=== PATIENT | male | born 1970 | race Two or more races ===

== ENCOUNTER 2016-09-07 10:53 | Emergency (ER) | payer MEDICARE, OTHER ==
--- NOTE | ~2016-09-07 | CT71 ---
[facility] A Service of [facility] RADIOLOGY TEXT RESULTS PATIENT: BRYNN CAREY LOCATION: [facility] : [birth year] UNIT #: [id number] AGE: [address]: Jaimie Mosqueda MD SEX: M ORDER DR: [id number] [facility] [address] [facility]. [place], [place] [address] [id number] MR#: [id number] #: [id number] NAME: BRYNN CAREY : 1970 SEX: M STUDY DATE/TIME: 09/07/2016 10:31 UNIT: CARLOS ROOM: STUDY DESCRIPTION: CT Head Wo Contrast Attending Physician: Jaimie Mosqueda M.D. Ordering Physician: Ed Doctor [id number] [facility] Primary Care Physician: Mahin Martin M.D. MEDICAL IMAGING REPORT This report is preliminary unless electronic signature is present EXAM Head CT, 09/07 INDICATION Dizziness at cardiac rehab this morning with vomiting x2. TECHNIQUE Axial images were obtained from the base to the vertex without contrast. This CT exam was performed with one or more of the following radiation dose reduction techniques: automatic exposure control, adjustment of mA and/or kV according to patient size, and iterative reconstruction. COMPARISON 06/26/2016 FINDINGS Ventricular size and configuration are within normal limits. Again seen are chronic dilated perivascular spaces or old lacunar infarcts both basal ganglia regions. There is no acute infarct or hemorrhage. No masses are seen. Chronic small vessel ischemic changes are present in the white matter. Postoperative changes are noted in the right globe. No skull fracture. There is some atherosclerotic calcification in the carotid siphons. Subcutaneous soft tissue thickening in the occipital scalp is unchanged and is probably some chronic scarring or inflammation. IMPRESSION No acute intracranial abnormality. Stable exam from 06/26/2016. Dictated by... John Rivera Jr., M.D. THIS IS AN ELECTRONICALLY VERIFIED REPORT [facility] A Service of [facility] RADIOLOGY TEXT RESULTS PATIENT: BRYNN CAREY LOCATION: [facility] : [birth year] UNIT #: [id number] AGE: [address]: Jaimie Mosqueda MD SEX: M ORDER DR: John Rivera Jr., M.D. at 09/07/2016 2:58 PM BRAN/vera TD: 09/07/2016 12:43 JOB #: [id number] MEDICAL IMAGING REPORT COPY
--- NOTE | ~2016-09-07 | EKG ---
PATIENT: BRYNN CAREY UNIT #: [id number] Ventricular Rate: 73 BPM Atrial Rate: 73 BPM P-R Interval: 162 ms QRS Duration: 90 ms Q-T Interval: 400 ms QTC Calculation(Bezet): 440 ms P [place]: 43 degrees Calculated R [place]: 67 degrees Calculated T [place]: 57 degrees Diagnosis Line: Normal sinus rhythm Diagnosis Line: Normal ECG Diagnosis Line: When compared with ECG of 28-JUN-2016 07:13, Diagnosis Line: No significant change was found Diagnosis Line: Confirmed by MATT MONAHAN MD ([id number]) on 09/08/2016 Diagnosis Line: 6:18:10 PM INTERPRETING MD: HERO PARTIDA
[2016-09-07 10:35] LABS: BASOPHIL# 0.1 X10e3 (0-0.3); BASOPHIL% 1.1 % (0-2.5); EOSINOPHIL# 0.2 X10e3 (0-0.7); EOSINOPHIL% 2.2 % (0.0-7.0); HEMATOCRIT 27.9 % (38.0-50.0); HEMOGLOBIN 9.5 gm/dL (13.0-16.0); LYMPHOCYTE# 1.6 X10e3 (1.0-3.5); LYMPHOCYTE% 19.1 % (17.0-45.0); MEAN CELL VOLUME 83.8 FL (83-96); MEAN CORPUSCULAR HEMOGLOBIN 28.6 PG (28-34); MEAN CORPUSCULAR HGB CONC 34.1 g/dL (30-36); MONOCYTE# 0.6 X10e3 (0-1.0); MONOCYTE% 7.1 % (3.0-12.0); NEUTROPHIL# 5.7 X10e3 (1.5-7.1); NEUTROPHIL% 70.5 % (40-75); PLATELET COUNT 200 X10e3 (140-420); RED BLOOD COUNT 3.33 X10e (3.90-5.60); RED CELL DISTRIBUTION WIDTH 19.2 % (11.0-15.5); WHITE BLOOD COUNT 8.1 X10e3 (4.0-10.5)
[2016-09-07 10:37] LABS: DIFF IND NO
[~2016-09-07 10:53] MED LIST: ACETAZOLAMIDE250 MG PO; ALPHAGAN P5 ML OU; AMLODIPINE BESYL5 MG PO; AMOXICILLIN875 MG PO; ANEXSIA 5/325 M1 TA1 PO; ANTACID650 MG PO; APAP325 M1 PO; ASPIRIN EC81 M1 PO; ASPIRIN81 M2 PO; BRILINTA90 MG PO; CALCITRIOL0.25 MCG PO; CALCIUM ACETAT667 M1 PO; CARDIZEM CD120 M1 PO; CARTIA XT120 MG PO; CARVEDILOL12.5 MG PO; COREG6.25 MG PO; COZAAR PO; COZAAR100 MG PO; FLOMAX0.4 M1 PO; FLONASE 0.05% N16 G1; HUMALOG100 U/M1 SUBQ; HUMALOG100 U/ML SQ; HUMALOG100 U/ML SUBQ; HYDRALAZINE HCL25 MG PO; HYDRALAZINE HCL50 MG PO; ISORDIL PO; ISOSORBIDE DINI40 M1 PO; ISOSORBIDE MONO10 MG PO; KEPPRA500 M2 PO; LANTUS100 U/ML SUBQ; LANTUS100 UNITS/ SQ; LANTUS100 UNITS/ SUBQ; LIPITOR PO; LIPITOR20 MG PO; LIPITOR80 MG PO; LOPID600 MG PO; LOSARTAN POTASS50 MG PO; MIRALAX17 GM PO; NITROGLYCERIN0.4 MG SL; NITROQUICK0.4 MG SL; NORCO1 TAB 10/3 PO; OMEPRAZOLE40 M1 PO; OMNIPRED10 ML OD; PHOSLO667 MG PO; PRILOSEC PO; PRILOSEC40 MG PO; REGLAN5 MG PO; TIMOPTIC 0.5% OP5 M1 OU; TRUSOPT5 ML OD; TUMS500 M1 PO; TYLENOL325 M1 PO; ULTRAM PO; VIAGRA PO; VITAMIN D1000 UNIT PO; VITAMIN D2000 UNIT PO; VITAMIN D32000 UNI1 PO; VITAMIN D32000 UNIT PO; XALATAN OU; ZESTORETIC 10/11 TA1 PO
[2016-09-07 10:58] LABS: ALBUMIN SERUM 3.5 g/dL (3.5-5.0); BILIRUBIN,TOTAL 0.8 mg/dL (0.2-2.0); BUN/CREATININE RATIO 6.76; CALCIUM SERUM 9.3 mg/dL (8.4-10.2); CREATININE SERUM 7.1 mg/dL (0.6-1.4); GLOM FILT RATE Estimated 8.8 mL/min (>60); PROTEIN TOTAL SERUM 7.3 g/dL (6.0-8.3)
[2016-09-07 11:11] LABS: POTASSIUM 5.5 mmol/L (3.5-5.1)
[2016-09-07 11:36] LABS: POC - TROPONIN <0.05 ng/mL (<=0.05)
== END 2016-09-07 14:47 | disposition home or self-care (01) ==
LOC: CED 10:53
PROVIDERS: Emergency Medicine; Nurse Practitioner Family
DX: R42 Dizziness and giddiness (principal); Z88.8 Allergy status to other drugs, medicaments and biological substances; I10 Essential (primary) hypertension; E11.9 Type 2 diabetes mellitus without complications; J45.909 Unspecified asthma, uncomplicated
CPT/HCPCS: 36415; 70450; 80053; 82553; 82947; 84484; 85025; 93005; 99284

== ENCOUNTER 2016-09-18 14:34 | Inpatient (IN) | payer MEDICARE, OTHER ==
--- NOTE | ~2016-09-18 | A ---
[facility] Nutrition Therapy DATE: 09/21/16 Patient: BRYNN CAREY Physician: RAJNI Address: [address] [place] [address] Room/Bed: [address] [place] [address], Zip: [place] [address] Admit Date: 09/20/16 Date of : [birth year] Height: 5 4 Weight: 186 84.6 NUTRITIONAL ASSESSMENT: REASON: Consult for renal/ low potassium diet education Diet: Renal/ low K+/ Consistent carbohydrate Assessment: RD received consult to provide renal/ low K+ diet education. RN reports that the pt does speak romanian; however, his first language is lao. This RD previously provided consistent carbohydrate diet education to the pt in July 2015. RD spoke with the pt at bedside today, asking to use the oil speculator phone. Pt did not want to use the oil speculator phone, stating that he understands. Pt also reports that he has taken a class regarding his prescribed diet. RD provided the pt with printed materials and food lists in lao. After discussing the pt's diet with him in detail, it is clear that the pt does consume high potassium foods often. RD encouraged the pt to avoid, or only consume small portions of the high potassium foods. Pt seemed surprised, and did not seem happy to learn that many of the fruits he consumes are high in potassium. RD offered various suggestions. Pt was thankful for the information, and would benefit from continued education following discharge. Recommendations: 1. Pt would benefit from seeing an outpatient RD, or RD at the HD center for follow up and continued renal/ CC diet education. Please consult for any further nutritional needs. Respectfully, SHARONDA CHRISTIANSON RD, LD Food and Nutrition[facility] Services [facility] cc: client file
--- NOTE | ~2016-09-18 | CR72 ---
[facility] A Service of [facility] RADIOLOGY TEXT RESULTS PATIENT: BRYNN CAREY LOCATION: [facility] 342- : [birth year] UNIT #: [id number] AGE: [address]: Dominique Quinones MD SEX: M ORDER DR: [id number] [facility]. [place], [place] [address] [id number] I MR#: [id number] Acc #: [id number] NAME: BRYNN CAREY : 1970 SEX: M STUDY DATE/TIME: 09/27/2016 6:16 UNIT: [address] ROOM: [facility] STUDY DESCRIPTION: CR Chest Single View Portable Attending Physician: Dominique Quinones M.D. Ordering Physician: Dominique Quinones M.D. Primary Care Physician: Mahin Martin M.D. MEDICAL IMAGING REPORT This report is preliminary unless electronic signature is present EXAM Portable chest INDICATIONS 46-year male with shortness of breath for 9 days. COMPARISON 09/22/2016 FINDINGS Stable cardiomegaly. Questionable new infiltrate in the retrocardiac left base. IMPRESSION Questionable new infiltrate within the retrocardiac left base. Stable cardiomegaly Dictated by... Mateo Peter M.D. THIS IS AN ELECTRONICALLY VERIFIED REPORT Mateo Peter M.D. at 09/28/2016 11:30 AM CHAO/jaquelin TD: 09/27/2016 13:33 JOB #: [id number] MEDICAL IMAGING REPORT Page 1 of 1 COPY
--- NOTE | ~2016-09-18 | HP ---
Unit #: [id number] #: [id number] Patient: BRYNN CAREY [id number] [address] [place], [place] [address] [id number] E MR#: [id number] NAME: BRYNN CAREY ROOM: Age: 46 Sex: M Admission Date: 09/18/2016 : 1970 Attending Physician: Nasir Patel M.D. Primary Care Physician: Mahin Martin M.D. HISTORY AND PHYSICAL CHIEF COMPLAINT Dizziness. HISTORY OF PRESENT ILLNESS The patient is a 46-year-old male with a past medical history of diabetes, chronic kidney disease secondary to hyperparathyroidism, seizure disorder, hypertension, hyperlipidemia, and depression, brought to the emergency room complaining of dizziness. The patient stated that patient has been having dizziness associated with pressure in the head on and off for the last five days. The patient stated that patient feels dizziness to the point that as soon as he stands up, he feels like passing out. Patient denies any fever, chills, nausea, vomiting, or chest pain. The patient is being admitted for the above reasons. Patient's CT of the head is negative. Patient is on dialysis. The last dialysis was yesterday, and there was no problem with dialysis. PAST MEDICAL HISTORY 1. 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 2. Hyperlipidemia. 3. Depression. 4. Obstructive sleep apnea. 5. Coronary artery disease, status post PCI. 6. Seizures. 7. Chronic renal disease secondary to hyperparathyroidism. PAST SURGICAL HISTORY 1. Cholecystectomy. 2. Cataract surgery. 3. Hernia repair. 4. AV fistula creation. SOCIAL HISTORY The patient is from [place]. 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 He denies any current tobacco or any current illicit drug abuse. FAMILY HISTORY Diabetes. ALLERGIES BENADRYL, PHENERGAN, AND HYDROXYZINE. HOME MEDICATIONS 1. Vitamin D. Unit #: [id number] #: [id number] Patient: BRYNN CAREY 2. Nitroglycerin. 3. Aspirin. 4. Losartan. 5. Amoxicillin. 6. Lipitor. 7. Calcium. 8. Carvedilol. 9. Brilinta. 10. Omeprazole. 11. Viagra. 12. Lantus REVIEW OF SYSTEMS A 14-point review of systems was performed and only pertinent positive findings are described above. The remaining are negative. PHYSICAL EXAMINATION GENERAL: Patient is lying in bed not in acute distress. VITAL SIGNS: Temperature 98.2, pulse 69, respiratory rate 18, blood pressure 120/66, and saturating 97% on room air. HEENT: Head atraumatic, normocephalic. Pupils equal, round, and reactive to light and accommodation. Extraocular movements are intact. Dry mucous membranes. NECK: Supple. No JVD. LUNGS: Decreased air entry at the bases. Coarse breath sounds. HEART: Regular rate and rhythm. ABDOMEN: Soft. Positive bowel sounds. EXTREMITIES: No cyanosis, no clubbing. Positive for AV fistula in the left arm with a good bruit and thrill. NEUROLOGIC: Alert, awake, and oriented. No gross focal motor deficit. DIAGNOSTIC STUDIES LABORATORY: Glucose 221, BUN 38, creatinine 6.2, sodium 134, potassium 4.2, chloride 90, bicarb 32, calcium 8.8, total protein 7.3, total bilirubin 0.8, AST 90, ALT 91, and alkaline phosphatase 396. WBC 6.7, hemoglobin 8.4, hematocrit 24.6, and platelets 206,000. IMAGING: CT of the head shows no acute intracranial abnormality. CARDIOLOGY: EKG shows normal sinus rhythm at a rate of 78 beats per minute, nonspecific T wave abnormality, and QTc of 426. ASSESSMENT 1. Dizziness. 2. End-stage renal disease, on hemodialysis. 3. Hypertension. PLAN Admit the patient to observation with telemetry. Patient will have a Neurology consultation for the MRI and MRA of the brain. Check carotid Dopplers of the neck. Continue with meclizine 25 mg p.o. q.6 p.r.n. and [place] 5 mg p.o. q.4 p.r.n. Renal consult for dialysis. Repeat the labs again in the morning, and further recommendations will follow. Dictated by Kwadwo Rivera/sonia Unit #: [id number] #: [id number] Patient: BRYNN CAREY TD: 09/18/2016 20:20 JOB #: [id number] HISTORY AND PHYSICAL X X HISTORY AND PHYSICAL
--- NOTE | ~2016-09-18 | CT71 ---
[facility] A Service of [facility] RADIOLOGY TEXT RESULTS PATIENT: BRYNN CAREY LOCATION: [facility] : 66 UNIT #: [id number] AGE: [address]: JONATHAN ALVA MD SEX: M ORDER DR: [id number] [address] [place], [place] [address] [id number] I MR#: [id number] Acc #: [id number] NAME: BRYNN CAREY : 1970 SEX: M STUDY DATE/TIME: 09/18/2016 16:54 UNIT: [address] ROOM: [facility] STUDY DESCRIPTION: CT Head Wo Contrast Attending Physician: Jonathan Alva M.D. Ordering Physician: Nasir Patel M.D. Primary Care Physician: Mahin Martin M.D. MEDICAL IMAGING REPORT This report is preliminary unless electronic signature is present EXAM CT head without contrast, 09/18/2016 INDICATION Dizziness for the past 3-[address] of the head. This CT exam was performed with one or more of the following radiation dose reduction techniques: automatic exposure control, adjustment of mA and/or kV according to patient size, and iterative reconstruction. COMPARISON 09/07/2016 FINDINGS No acute hemorrhage. No abnormal mass effect, extraaxial fluid collection or hydrocephalus. Redemonstration of soft tissue thickening with high attenuation in the occipital soft tissues. No calvarial fracture. IMPRESSION No acute intracranial findings. Dictated by... Massimo Flores M.D. THIS IS AN ELECTRONICALLY VERIFIED REPORT Massimo Flores M.D. at 09/20/2016 6:59 AM MARYLIND/erinn [facility] A Service [facility] RADIOLOGY TEXT RESULTS PATIENT: BRYNN CAREY LOCATION: [facility] : [birth year] UNIT #: [id number] AGE: [address]: JONATHAN ALVA MD SEX: M ORDER DR: TD: 09/18/2016 23:43 JOB #: [id number] MEDICAL IMAGING REPORT COPY
--- NOTE | ~2016-09-18 | CO ---
Unit #: [id number] #: [id number] Patient: BRYNN CAREY [id number] [facility] [address] [facility]. [place], [place] [address] [id number] I MR#: [id number] NAME: BRYNN CAREY ROOM: 342 Age: 46 Sex: M Admission Date: 09/18/2016 : 1970 Attending Physician: Gricel Alva M.D. Primary Care Physician: Mahin Martin M.D. Consultation Date: 09/19/2016 CONSULTATION REPORT REASON FOR CONSULT Dizziness. PATIENT IDENTIFICATION This is a 46-year-old, right-handed, male evaluated in room 342 at [facility]. SOURCE OF INFORMATION Obtained from the patient, as well as the medical record. The patient speaks Polish, but we recommended using the pen tender phone for evaluation and the patient refused. HISTORY OF PRESENT ILLNESS This is a 46-year-old, right-handed, male with a past medical history of seizure disorder, diabetes mellitus, hypertension and coronary artery disease who presented to [facility] with reports of dizziness. The patient is a very poor historian, thus, limiting full evaluation. The patient answers questions, but again, it is difficult to get answers from the patient, difficult to get any details, even with prompting. The patient admits to dizziness. When I ask about dizziness, he states that he feels lightheaded. He also tells me he feels like he is going to fall. When I ask him to describe it in detail, he admits also that he feels as though everything is spinning. He denies any headache, fever or chills, any illness or injury. When I ask him about how long it has been going on, he says "a couple of days." I asked him if it is gradual onset or sudden onset, and he says that it is gradual he thinks. He told the admitting physician that, when he stands up, he feels like passing out; however, he told me that he feels more like a spinning sensation. He admits that it occurs with any position change. He was able to stand up out of bed but states that he felt unsteady whenever he did stand up out of bed on my exam. He denies any new focal weakness or paresthesia. When I ask about any falls or loss of consciousness, he states that he "passed out." When I asked him about any details as to whether he was lying or standing, he cannot tell me. He says, "I don't know what happened." His last dialysis was the day prior to admission, and he apparently had no problems with dialysis. When I asked him about history of seizures, he states that he does not know the details, that he had a seizure maybe a week ago but admits he does not see a neurologist, and he appears to not be on medications. When I look back in the medical record, we apparently saw him in 2014 for new onset seizures and started him on Keppra. He states that he has no knowledge of that. He had a head CT done in the ED on 09/18/2016 that was negative for any intracranial findings. He had a carotid ultrasound also done that was normal. Unit #: [id number] #: [id number] Patient: BRYNN CAREY PAST MEDICAL HISTORY 1. Type 1 diabetes diagnosed at the age of 10. He has subsequent diabetic retinopathy and neuropathy. 2. Chronic kidney disease, endstage. 3. Bilateral cataract extraction, laser surgery. 4. Laparoscopic cholecystectomy. 5. Hernia repair. 6. Questionable TIA in [place] about 3 1/2 years ago. Details unknown. 7. Depression. 8. Hypertension. 9. Obstructive sleep apnea. 10. Coronary artery disease status post PCI. 11. Hyperlipidemia. 12. AV fistula creation. 13. Hypertensive urgency from hospital visit in June of 2016. At that time he also had acute coronary syndrome with elevated troponin. 14. Thrombocytopenia. 15. Anemia of chronic kidney disease. FAMILY HISTORY Positive for CVA, hypertension, coronary artery disease, as well as diabetes mellitus. SOCIAL HISTORY The patient is originally from [place]. [place]. He denies illicit drug use, tobacco use or alcohol use but apparently has a history of cocaine use in the past, apparently stopped several years ago, as reported in the medical record. ALLERGIES Phenergan, Benadryl, Vistaril, Flexeril. HOME MEDICATIONS 1. Losartan potassium. 2. Alphagan P. 3. Xalatan. 4. Prednisone acetate. 5. Cosopt. 6. Rifampin. 7. Cartia XT. 8. Lantus. 9. Aspirin. 10. Nitrostat. 11. Lipitor. 12. Omeprazole. 13. Ventolin. 14. Vitamin D. 15. Lopid. 16. Brilinta. REVIEW OF SYSTEMS A 12-point review of systems was attempted. The patient is a very poor historian. It is difficult to elicit any details as far as his review of systems or past medical history. appears to have no significant knowledge as to his chronic health conditions. Otherwise, pertinent positives are as discussed above. Unit #: [id number] #: [id number] Patient: BRYNN CAREY PHYSICAL EXAMINATION VITAL SIGNS: Temperature 98, pulse 80, respirations 18, blood pressure 104/47, oxygen saturation 96%, height 5'4", weight 189 pounds, BMI 32. NEUROLOGIC EXAMINATION MENTAL STATUS: The patient is awake. He is alert. He is oriented to person and place. He is oriented to time. He follows simple commands. He is a very poor historian. He has limited Polish but is able to communicate. He adamantly refuses the pen tender phone when prompted. He does not appear to be aphasic or dysarthric. Speech appears to be clear. He follows simple and 2- to 3-step commands. CRANIAL NERVE EXAM: He appears to have absence of peripheral vision. He states that this is chronic. No quadrantanopia or hemianopia seen. Eyes are conjugate without ptosis or nystagmus. Extraocular movements are intact. He appears to have a postsurgical right pupil. Sensation is intact. Strength of muscles of facial expression is intact. Hearing is intact to finger rub and conversation. Tongue is midline. Uvula is midline. Palate elevation is normal. Head turning and shoulder shrug were unremarkable. Neck is supple. MOTOR EXAM: He demonstrates normal bulk and tone. Strength is equal, 5+/5 in all extremities. SENSORY EXAM: Intact proximally but he appears to have distal limitation in his sensory exam consistent with stocking/glove-type distribution and has a known diagnosis of peripheral neuropathy secondary to diabetes. GAIT: Gait deferred. He was able to stand but felt unsteady upon standing. Romberg deferred at this time. REFLEXES: Unable to elicit. Toes are equivocal. COORDINATION: No ataxia. Unremarkable. DIAGNOSTIC STUDIES IMAGING: Please see above. LABS: BMP shows sodium of 133, potassium 4.6, chloride 91, CO2 29, glucose 222, BUN 51, creatinine 7.9, eGFR 7.8, calcium 8.3. White blood cell count 7.3, hemoglobin 8, hematocrit 23.6, platelet count 210. Urinalysis - 3+ protein, 250 glucose, 1+ blood. Micro and cult not indicated. Troponin less than 0.05 on arrival. White count 6.7 on arrival. Glucose 210 on arrival. CARDIOVASCULAR: EKG - Normal sinus rhythm, nonspecific T wave abnormality. IMPRESSION 1. Dizziness and vertigo. Questionable multifactorial. Consider autonomic dysfunction. However, the patient is complaining of multiple complaints. I was unable to reproduce symptoms with the Edmonds-Hallpike. He complains of syncope with loss of consciousness, as well. Please see above for details. 2. Syncope/loss of consciousness. The patient is a very poor historian. He states that he has seizures "frequently" but is unable to explain the nature of those events and is unable to tell me anything about his history of seizures. I had to look up our consultation from 2014. At that time we put the patient on Keppra, although he is not taking it now. His EEG on this admission is unremarkable. 3. Diabetes mellitus with diabetic retinopathy and neuropathy. 4. Endstage renal disease. 5. Depression. 6. Hypertension. Unit #: [id number] #: [id number] Patient: BRYNN CAREY PLAN Will request MRI of the brain, MRA of the head and neck. Will check a B12 and folate level. Will ask PT/OT to evaluate, and EEG has been done. Please see above. The patient is a very poor historian. Presentation is somewhat atypical and could be multifactorial. It is difficult in determining a differential diagnosis given the patient's very poor history. Examination is not revealing for any acute or new findings. However, given presentation and attempted review of systems, will request above workup. Case was discussed with Dr. King, who saw the patient, as well. Will discuss with Dr. King regarding putting the patient back on antiepileptics after workup and further discussion. Please call for any questions or issues. We thank you very much for allowing us to assist in the care of this patient. Dictated by... Rama Womack A.P.R.N. for Kwadwo Larios/mirza TD: 09/20/2016 09:01 JOB #: [id number] CONSULTATION REPORT X Rama Womack APRN X CONSULTATION REPORT
--- NOTE | ~2016-09-18 | US37 ---
[facility] A Service of [facility] RADIOLOGY TEXT RESULTS PATIENT: BRYNN CAREY LOCATION: [facility] : [birth year] UNIT #: [id number] AGE: [address]: JONATHAN ALVA MD SEX: M ORDER DR: [id number] [place], [place] [address] [id number] I MR#: [id number] #: [id number] NAME: BRYNN CAREY : 1970 SEX: M STUDY DATE/TIME: 09/19/2016 7:02 UNIT: [address] ROOM: [address] [place] [address] DESCRIPTION: US Carotid W/Doppler Bilateral Attending Physician: Jonathan Alva M.D. Ordering Physician: [facility] Primary Care Physician: Mahin Martin M.D. MEDICAL IMAGING REPORT This report is preliminary unless electronic signature is present EXAM Carotid Doppler DATE OF STUDY: 09/19/16 PROCEDURE: Brand scale imaging, color Doppler flow [id number], Doppler waveform analysis. HISTORY: Dizziness and headache for one week with confusion for two years. History of coronary artery disease. FINDINGS On the right, there is no brand-scale identifiable plaque. There is antegrade flow in the common and internal and external carotid and vertebral artery. Right internal carotid artery peak systolic velocity is 52 cm/sec with moderate spectral broadening but a brisk systolic upstroke. On the left, there is no brand-scale identifiable plaque and there is antegrade flow of the common and internal and external carotid and vertebral artery. The left internal carotid peak systolic velocity is 56 cm/sec with a brisk systolic upstroke and minimal spectral broadening. IMPRESSION Normal carotid Doppler. Normal velocities and waveforms. No brand-scale identifiable plaque. No evidence of stenosis in either internal by NASCET criteria. Normal study. Dictated by... Huber Shipley M.D. [facility] A Service of [facility] RADIOLOGY TEXT RESULTS PATIENT: BRYNN CAREY LOCATION: [facility] : [birth year] UNIT #: [id number] AGE: [address]: JONATHAN ALVA MD SEX: M ORDER DR: THIS IS AN ELECTRONICALLY VERIFIED REPORT Huber Shipley M.D. at 09/19/2016 5:02 PM ELISSA/adamaris TD: 09/19/2016 09:53 JOB #: [id number] MEDICAL IMAGING REPORT COPY
--- NOTE | ~2016-09-18 | CR72 ---
[facility] A Service of [facility] & [facility] RADIOLOGY TEXT RESULTS PATIENT: BRYNN CAREY LOCATION: [facility] 342- : [birth year] UNIT #: [id number] AGE: [address]: Dominique Quinones MD SEX: M ORDER DR: [id number] [facility] [address] [facility]. [place], [place] [address] [id number] MR#: [id number] Acc #: [id number] NAME: BRYNN CAREY : 1970 SEX: M STUDY DATE/TIME: 09/22/2016 14:48 UNIT: [address] ROOM: [facility] STUDY DESCRIPTION: CR Chest Single View Portable Attending Physician: Gricel Alva M.D. Ordering Physician: Vin Hairston M.D. Primary Care Physician: Mahin Martin M.D. MEDICAL IMAGING REPORT This report is preliminary unless electronic signature is present EXAM Portable chest, 09/22/2016 INDICATION Shortness of air and dizziness for 5 days. History of coronary artery disease. FINDINGS AP portable chest compared with 09/18/2016. Cardiomegaly is stable. The lungs are clear. Vascularity is normal. No pneumothorax. IMPRESSION Stable cardiomegaly. No active disease. Dictated by... John Rivera Jr., M.D. THIS IS AN ELECTRONICALLY VERIFIED REPORT John Rivera Jr., M.D. at 09/26/2016 2:23 PM BRAN/erinn TD: 09/22/2016 22:18 JOB #: [id number] MEDICAL IMAGING REPORT COPY
--- NOTE | ~2016-09-18 | CO ---
Unit #: [id number] #: [id number] Patient: BRYNN CAREY [id number] [address] [place], [place] [address] [id number] I MR#: [id number] NAME: BRYNN CAREY ROOM: 342 Age: 46 Sex: M Admission Date: 09/20/2016 : 1970 Attending Physician: Gricel Alva M.D. Primary Care Physician: Mahin Martin M.D. CONSULTATION REPORT REASON FOR CONSULTATION Cirrhosis. HISTORY OF PRESENTING ILLNESS The patient is a 46-year-old male who is originally from [place]. He actually presented with a complaint of dizziness; however, he has had multiple complaints since then including most recently right eye pain. He did evidently at some point complain of nausea and vomiting; however, he denies that at this time. He reports some generalized abdominal pain, but he is nontender upon exam. He states his bowels are fine. Denies any blood in the stool. Denies any known previous liver problems. He has end-stage renal disease and on hemodialysis 3 days weekly. PAST MEDICAL HISTORY Type 2 diabetes, hyperlipidemia, depression, obstructive sleep apnea, coronary artery disease, seizures, chronic renal disease secondary to hyperparathyroidism on hemodialysis, status post cholecystectomy, cataract repair, hernia repair, AV fistula creation for dialysis. SOCIAL HISTORY The patient is originally from [place]. 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 Denies any current tobacco or current alcohol use; however, he does state he previously drank heavy, but has been sober for about 10 years. FAMILY HISTORY Notable for diabetes. ALLERGIES To Benadryl, Phenergan, and hydroxyzine. HOME MEDICATIONS Vitamin D, nitroglycerin, aspirin, losartan, amoxicillin, Lipitor, calcium, Coreg, Brilinta, omeprazole, Viagra, Lantus. REVIEW OF SYSTEMS A complete 10-point review of systems is completed and negative except as mentioned in the HPI. PHYSICAL EXAMINATION GENERAL: The patient is a 46-year-old male, currently in no acute distress. VITAL SIGNS: Temperature 99.8, pulse is 78, respirations 18, blood pressure is 153/83. Unit #: [id number] #: [id number] Patient: BRYNN CAREY: JOE. NECK: Supple. CARDIAC: S1 and S2. LUNGS: Clear to auscultation. ABDOMEN: Soft, rounded, positive ascites, nontender, and positive bowel sounds. NEUROLOGIC: The patient is alert, awake, and oriented x3. DIAGNOSTIC STUDIES IMAGING STUDIES: CT of abdomen and pelvis was completed without contrast and showed cirrhosis with moderate-volume ascites as well as a large pericardial effusion. Right upper quadrant ultrasound was also done. Absent gallbladder, nodular-appearing liver, again positive for ascites. LABORATORY RESULTS: BUN and creatinine are 70 and 9.7. AST and ALT are 144 and 319 respectively. Alkaline phosphatase is 385. Hepatitis panel was completed in 07/2015 and was negative. White count is 9.9, hemoglobin is 8.7 which is stable from yesterday, hematocrit is 26.5, and platelets are 217. ASSESSMENT AND PLAN 1. Cirrhosis with ascites, question etiology, possibly fatty liver versus hepatitis secondary to previous IV drug use. We will recheck hepatitis panel today and continue to monitor. Not a candidate for diuretics secondary to renal failure. We will have Renal to manage fluid status with dialysis. Supportive care for now. 2. Anemia of chronic disease. Hemoglobin appears to be stable. We will continue to monitor for now. 3. End-stage renal disease, on hemodialysis. 4. Diabetes. 5. Right eye pain. Thank you for this interesting consult. We will continue to follow along. Dictated by... Mary Lacey A.P.R.N. for Ric Taylor M.D. PURA/stefanie TD: 09/23/2016 05:41 JOB #: [id number] CONSULTATION REPORT X X CONSULTATION REPORT
--- NOTE | ~2016-09-18 | CO ---
Unit #: [id number] #: [id number] Patient: BRYNN CAREY [id number] [address] [place], [place] [address] [id number] I MR#: [id number] NAME: BRYNN CAREY ROOM: [facility] Age: 46 Sex: M Admission Date: 09/20/2016 : 1970 Attending Physician: Gricel Alva M.D. Primary Care Physician: Mahin Martin M.D. CONSULTATION REPORT REFERRING PHYSICIAN Dr. Ortiz REASON FOR CONSULT Large pericardial effusion. HISTORY OF PRESENT ILLNESS Mr. Brynn Carey is a 46-year-old male who presented to [facility] on 09/20/16 with complaint of vertigo and near syncope. He was evaluated by neuro with his syncope and vertigo resolving shortly after evaluation. CT of the abdomen and pelvis reveals moderate ascites and cirrhosis changes of the liver with his associated abdominal pain. The patient has end stage renal disease and is on hemodialysis for which he is compliant. He underwent an echo this a.m. because on the CT of the abdomen and pelvis it revealed a moderate pericardial effusion. The echocardiogram today revealed an ejection fraction of 50% to 55% but a large pericardial effusion without evidence of tamponade. Dr. Ortiz had called and requested a consult by Dr. Hairston regarding a pericardial window. PAST MEDICAL HISTORY 1. Coronary artery disease, status post intracoronary stenting multiple times in February 2016. 2. End stage renal disease. 3. Cirrhosis. 4. Diabetes mellitus. 5. Retinopathy. 6. Neuropathy. 7. Seizure disorder. 8. Depression. 9. Hyperlipidemia. PAST SURGICAL INTERVENTIONS 1. Cholecystectomy. 2. Cataract surgery. 3. Arteriovenous fistula in the left arm. 4. Hernia repair. 5. Multiple cardiac catheterizations with angioplasty and intracoronary stenting. MEDICATIONS He is on aspirin and Plavix and his other medications will remain on the list on the chart. Unit #: [id number] #: [id number] Patient: BRYNN CAREY MEDICATION ALLERGIES Vistaril, Phenergan, Flexeril and Benadryl. REVIEW OF SYSTEMS Positive for mild shortness of air, vertigo, near syncope, and abdominal pain. All other 14 point review negative. FAMILY/SOCIAL HISTORY He has a history of IV drug use but he quit nine years ago. He used cocaine and heroin. He denies any smoking history and he does have history of ETOH abuse; however, he quit 15 years ago. PHYSICAL EXAMINATION VITAL SIGNS: Temperature is 99.8, heart rate 78, respiratory rate 18, blood pressure is 153/83. GENERAL: He is a sleepy 46-year-old male who is a poor historian and will barely open his eyes to speak to me. NEURO: He has no focal neuro deficits noted. NECK: Supple. Trachea midline. No thyromegaly. HEENT: He is normocephalic. He does have some erythema of the right eye and there has been a consult ordered for Dr. Lundy. He has no facial asymmetry noted. LUNGS: Decreased in the bases with a few crackles noted. CARDIOVASCULAR: S1, S2 without rub, without murmur. No S3 or 4 and no peripheral edema. ABDOMEN: Large, round, pendulous. No hepatosplenomegaly. No pulsatile masses are discernible due to body habitus. EXTREMITIES: Without edema. He has left upper extremity with a functional AV fistula and he is currently having muscle spasms as I am interviewing him in both lower extremities. DIAGNOSTIC STUDIES LABORATORY: BUN 70, creatinine 9.7, sodium 136, potassium 5.8, hemoglobin 8.7, hematocrit 26.5. There is a CT of the abdomen and pelvis in [facility] as well as his echo report this morning is on the front of the chart. Today, Dr. Hairston has met with and examined Mr. Martinez. He has reviewed past medical history, review of systems, lab tests and present illness. IMPRESSION 1. Large pericardial effusion without evidence of cardiac tamponade of unknown origin. 2. Diabetes mellitus. 3. Coronary artery disease, under the care of Dr. Leonardo and Diana with multiple intracoronary stents and angioplasty in February 2016, currently on aspirin and Plavix. 4. End stage renal disease, on hemodialysis. 5. Ascites, new. Patient to undergo paracentesis. PLAN Following discussion with Dr. Hairston, patient will undergo a subxiphoid pericardial window tomorrow providing that Dr. Ortiz is in agreement with his cardiac status. A BNP is done today. BNP is 1605 this afternoon, PT is 114, PTT is 28 and INR is 1.3. Chest x-ray is within normal limits, with cardiomegaly. Patient will have a consent for subxiphoid pericardial window, NPO after midnight, type and cross match two units for OR. Unit #: [id number] #: [id number] Patient: BRYNN CAREY Dictated by... Wendy Hsu A.P.R.N. for Vin Hairston M.D. TB/df TD: 09/23/2016 05:47 JOB #: [id number] CONSULTATION REPORT X Wendy Hsu APRN X CONSULTATION REPORT
--- NOTE | ~2016-09-18 | CR72 ---
[facility] A Service of [facility] & [facility] RADIOLOGY TEXT RESULTS PATIENT: BRYNN CAREY LOCATION: [facility] 342-01 : [birth year] UNIT #: [id number] AGE: [address]: JONATHAN ALVA MD SEX: M ORDER DR: [id number] [facility] [address] [facility]. [place], [place] [address] [id number] I MR#: [id number] Acc #: [id number] NAME: BRYNN CAREY : 1970 SEX: M STUDY DATE/TIME: 09/18/2016 13:56 UNIT: CED ROOM: [id number] STUDY DESCRIPTION: CR Chest Single View Portable Attending Physician: Jonathan Alva M.D. Ordering Physician: Nasir Patel M.D. Primary Care Physician: Mahin Martin M.D. MEDICAL IMAGING REPORT This report is preliminary unless electronic signature is present EXAM Portable chest, 09/18/2016 HISTORY Chest pain, shortness of breath and pressure in head for 3 days with dizziness, chest congestion. FINDINGS There is mild cardiac enlargement. The lungs are clear. There are no pleural effusions. IMPRESSION Cardiomegaly. No active pulmonary disease. Dictated by... Nestor Ngo M.D. THIS IS AN ELECTRONICALLY VERIFIED REPORT Nestor Ngo M.D. at 09/19/2016 10:48 AM KRT/psc TD: 09/18/2016 21:39 JOB #: [id number] MEDICAL IMAGING REPORT COPY
--- NOTE | ~2016-09-18 | EKG ---
PATIENT: BRYNN CAREY UNIT #: [id number] Ventricular Rate: 78 BPM Atrial Rate: 78 BPM P-R Interval: 154 ms QRS Duration: 78 ms Q-T Interval: 374 ms QTC Calculation(Bezet): 426 ms P [place]: 43 degrees Calculated R [place]: 42 degrees Calculated T [place]: 97 degrees Diagnosis Line: Normal sinus rhythm Diagnosis Line: Nonspecific T wave abnormality Diagnosis Line: Abnormal ECG Diagnosis Line: When compared with ECG of 07-SEP-2016 10:00, Diagnosis Line: Nonspecific T wave abnormality now evident in Diagnosis Line: Anterolateral leads Diagnosis Line: Confirmed by LEONORA LOZA MD ([id number]) on Diagnosis Line: 09/19/2016 12:08:51 AM INTERPRETING MD: DAGO PARTIDA
--- NOTE | ~2016-09-18 | US67 ---
[facility] A Service of [facility] & [facility] RADIOLOGY TEXT RESULTS PATIENT: BRYNN CAREY LOCATION: [facility] 342- : [birth year] UNIT #: [id number] AGE: [address]: JONATHAN ALVA MD SEX: M ORDER DR: [id number] [id number] [facility]. [place], [place] [address] [id number] I MR#: [id number] Acc #: [id number] NAME: BRYNN CAREY : 1970 SEX: M STUDY DATE/TIME: 09/21/2016 7:24 UNIT: [address] ROOM: [facility] hospital STUDY DESCRIPTION: US Gallbladder Attending Physician: Jonathan Alva M.D. Ordering Physician: Austen Leonardo M.D. Primary Care Physician: Mahin Martin M.D. MEDICAL IMAGING REPORT This report is preliminary unless electronic signature is present EXAM Gallbladder ultrasound HISTORY SUPPLIED Abdominal pain for a few days, previous cholecystectomy. Renal failure. Elevated liver enzymes. FINDINGS Longitudinal and transverse sonograms of the abdomen were obtained. Liver parenchyma appears unremarkable. The patient does have very mild nodularity of the liver and there is ascites present. Appears to be a recanalized umbilical vein. Flow in the portal vein is documented and is toward the liver. The gallbladder is absent. The common duct is normal. Liver size is enlarged. The right kidney is small and atrophic measuring 9.4 cm with increased echogenicity marked renal cortical thinning. CONCLUSION 1. Nodular appearing liver with liver enlargement raising the question of chronic liver disease. 2. Ascites. 3. Recanalized umbilical vein. 4. Status post cholecystectomy. 5. Atrophic right kidney suggesting chronic medical renal disease. Dictated by... Fortunato Waite M.D. THIS IS AN ELECTRONICALLY VERIFIED REPORT Fortunato Waite M.D. at 09/21/2016 5:03 PM ROMANA/phyllis TD: 09/21/2016 14:51 JOB #: [id number] [facility] A Service of [facility] & [facility] RADIOLOGY TEXT RESULTS PATIENT: BRYNN CAREY LOCATION: [facility] 342-01 : [birth year] UNIT #: [id number] AGE: [address]: JONATHAN ALVA MD SEX: M ORDER DR: MEDICAL IMAGING REPORT COPY
--- NOTE | ~2016-09-18 | CT4 ---
[facility] A Service of [facility] RADIOLOGY TEXT RESULTS PATIENT: BRYNN CAREY LOCATION: [facility] 342- : [birth year] UNIT #: [id number] AGE: [address]: JONATHAN ALVA MD SEX: M ORDER DR: [id number] [id number] [place], [place] [address] [id number] I MR#: [id number] Acc #: [id number] NAME: BRYNN CAREY : 1970 SEX: M STUDY DATE/TIME: 09/21/2016 18:38 UNIT: [address] ROOM: [facility] STUDY DESCRIPTION: CT Abd and Pelv Wo Cont Attending Physician: Jonathan Alva M.D. Ordering Physician: Austen Leonardo M.D. Primary Care Physician: Mahin Martin M.D. MEDICAL IMAGING REPORT This report is preliminary unless electronic signature is present EXAM CT abdomen and pelvis INDICATION Generalized abdominal pain for 2-3 days. Splenomegaly. Elevated liver enzymes. TECHNIQUE CT abdomen and pelvis without contrast. Coronal and sagittal reconstructions were obtained. This CT exam was performed with one or more of the following radiation dose reduction techniques: automatic exposure control, adjustment of mA and/or kV according to patient size, and iterative reconstruction. COMPARISON Abdominal ultrasound dated 09/21/2016 FINDINGS ABDOMEN: There is a large pericardial effusion measuring up to 3.3 cm. There is increased density at the pericardial effusion that suggests either blood or proteinaceous product. Noncontrast evaluation of the liver has abnormal morphology suggesting background cirrhosis. There is a moderate volume of ascites. The pancreas is atrophic. Spleen is normal in size. The adrenal glands are normal. The kidneys are atrophic. No hydronephrosis. The bowel is not dilated. The gallbladder is surgically absent. The bowel is not dilated. The appendix is normal. The abdominal aorta is normal in caliber. Borderline enlarged lymph nodes in the periportal region and gastrohepatic [facility] A Service of [facility] RADIOLOGY TEXT RESULTS PATIENT: BRYNN CAREY LOCATION: [facility] 342-01 : [birth year] UNIT #: [id number] AGE: [address]: JONATHAN ALVA MD SEX: M ORDER DR: ligament are not expected given the background cirrhosis. PELVIS: No pelvic mass. There is a right indirect inguinal hernia. No acute osseous abnormalities. IMPRESSION 1. Cirrhosis with a moderate volume of ascites. 2. Large pericardial effusion. The pericardial fluid is of intermediate density suggesting either proteinaceous fluid or hemorrhagic fluid. This measures up to 3.3 cm in thickness. Dictated by... Armando Segundo M.D. THIS IS AN ELECTRONICALLY VERIFIED REPORT Armando Segundo M.D. at 09/22/2016 10:29 AM Mica TD: 09/22/2016 09:26 JOB #: [id number] MEDICAL IMAGING REPORT COPY
--- NOTE | ~2016-09-18 | EE ---
Unit #: [id number] #: [id number] Patient: BRYNN CAREY [id number] [address] [address] [id number] I MR#: [id number] NAME: BRYNN CAREY : 1970 SEX: M STUDY DATE/TIME: 09/19/2016 UNIT: C3A PCU ROOM: [facility] STUDY DESCRIPTION: EEG Attending Physician: Gricel Alva M.D. Referring Physician: Rama Womack A.P.R.N. Primary Care Physician: Mahin Martin M.D. NEURODIAGNOSTICS REPORT EXAM EEG REASON FOR THE STUDY Episodes of mental status changes, falls and history of seizure/epilepsy? No prior EEG available. EEG DESCRIPTION This is an inpatient, digitally recorded multi-montage adult EEG with leads placed according to the International 10-20 System. Hyperventilation and photic stimulation was attempted. With the patient fully aroused, there is 10 to 11 Hz posterior dominant alpha rhythm which is symmetric and attenuates with eyes opening. The patient did become drowsy and latera on stage 2 sleep was seen. Some sleep transients were seen between C3 and P3 and C4 and P4. Nothing suggesting clearcut interictal discharges or clinical events. Hyperventilation was attempted. It shows mild diffuse slowing but nothing focal. Photic stimulation was attempted in intermittent stepwise pattern up to the flash frequency of 30 Hz but I did not see any driving, asymmetry or paroxysmal activity. No clinical events were seen. IMPRESSION This is an essentially normal adult awake and asleep EEG. An EEG like this does not rule out epilepsy. Clinical correlation is recommended. Dictated by... Kwadwo Larios/dequan TD: 09/20/2016 05:55 JOB #: [id number] Unit #: [id number] #: [id number] Patient: BRYNN CAREY NEURODIAGNOSTICS REPORT X Reyna King MD NEURODIAGNOSTICS REPORT
--- NOTE | ~2016-09-18 | DS ---
Unit #: [id number] #: [id number] Patient: BRYNN CAREY [id number] [address] [address] [id number] I MR#: [id number] NAME: BRYNN CAREY ROOM: [facility] Age: 46 Sex: M Admission Date: 09/20/2016 : 1970 Discharge Date: Attending Physician: Dominique Quinones M.D. Primary Care Physician: Mahin Martin M.D. DISCHARGE SUMMARY DISCHARGE DIAGNOSES 1. Pericardial effusion with no signs of tamponade. 2. End-stage renal disease on hemodialysis. Noncompliant with dialysis. 3. Fluid overload. 4. Coronary artery disease, status post percutaneous coronary intervention and stent in 02/2016. 5. Elevated liver enzymes. 6. 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 7. Hyperlipidemia. 8. Depression. 9. Obstructive sleep apnea. 10. Seizures. 11. Hyperparathyroidism. 12. Hypertension. 13. Anemia secondary to chronic kidney disease. 14. Morbid obesity. 15. Hyperkalemia secondary to acute kidney injury. 16. Metabolic encephalopathy with lethargy secondary to opiates and Neurontin which had been started because patient had pain but later discontinued before discharge. CONSULTATIONS 1. Dr. King. 2. Dr. Leonardo. 3. Dr. Hairston. PROCEDURES None. DIAGNOSTIC STUDIES LABORATORY DATA: Glucose 114, sodium 135, potassium 5.03, creatinine 6.3, WBC 9.2, hemoglobin 8.9, platelets 237. Blood cultures negative. Occult blood negative. BNP 2532. ALLERGIES Hydroxyzine, promethazine, cyclobenzaprine, diphenhydramine. DISCHARGE MEDICATIONS 1. Albuterol inhalation t.i.d. 2. Prednisone acetate 1% eye drop q.i.d. 3. Keppra 500 p.o. b.i.d. home dose. 4. Rifampin 600 mg p.o. daily. 5. Cosopt eye drops b.i.d. Unit #: [id number] #: [id number] Patient: BRYNN CAREY 6. Metoprolol 12.5 p.o. b.i.d. 7. Xalatan 2.5 mL eye drops q.h.s. 8. Levemir 12 units subcu q. 8:00 a.m. and Levemir 13 units subcu q. 10:00 p.m. 9. Brimonidine eye drops b.i.d. 10. Aspirin 81 mg daily. 11. Brilinta 90 mg p.o. b.i.d. 12. Omeprazole 40 daily. 13. Nitroglycerin 0.4 sublingual p.r.n. chest pain. 14. Vitamin D 2000 units p.o. daily. 15. Colchicine 0.3 mg p.o. daily for 14 days. HOSPITALIZATION COURSE A 46 year old admitted because of dizziness, found to have pericardial effusion. Initially thought he had tamponade but repeat echocardiogram did not show any tamponade. Dialysis has been given. Colchicine has been started. Currently his breathing is better. Patient will continue the colchicine for 14 days. Cardiology told to continue with medical management. No pericardial window needed because his symptoms got better. Fluid overload secondary to noncompliance with end-stage renal disease: Continue with hemodialysis. End-stage renal disease: Continue with hemodialysis. Anemia secondary to chronic kidney disease: Follow up with PCP as an outpatient. Seizures: Continue with the Keppra. No new seizures during the hospitalization course. Hyperkalemia secondary to kidney disease, resolved. Morbid obesity secondary to calories: Advised to lower calories. Obstructive sleep apnea: Patient needs outpatient followup. Diabetes mellitus type 2, uncontrolled: Increased his Levemir. Lethargy during the hospitalization course secondary to Lortab and Neurontin which were given because he was complaining of severe leg pain during hemodialysis which later had been discontinued because of lethargy. DISPOSITION Discharge home with home health. FOLLOWUP 1. Follow with family physician in one-week's time. 2. 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 3. Follow with Dr. Leonardo on November 01. Discharge time taken is 40 minutes. Unit #: [id number] #: [id number] Patient: BRYNN CAREY Dictated by.Kwadwo Roblero/luz maria TD: 09/29/2016 17:05 JOB #: [id number] DISCHARGE SUMMARY Page 1 of 1 X Dominique Quinones MD SUMMARY
--- NOTE | ~2016-09-18 | CO ---
Unit #: [id number] #: [id number] Patient: BRYNN CAREY [id number] [address] [place], [place] [address] [id number] I MR#: [id number] NAME: BRYNN CAREY ROOM: 342 Age: 46 Sex: M Admission Date: 09/18/2016 : 1970 Attending Physician: Gricel Alva M.D. Primary Care Physician: Mahin Martin M.D. CONSULTATION REPORT REASON FOR CONSULTATION Ventricular tachycardia. HISTORY OF PRESENT ILLNESS This is a 46-year-old male, who is known to Dr. Leonardo, who has a history of coronary artery disease where he underwent multiple angioplasty and stent placement in February of 2016. He is known to have hypertension, hyperlipidemia and diabetes. He came to the emergency room which he says was because of a seizure. He reports dizziness with activity as well as at rest. His dizziness mostly occurs on his dialysis days but also occurs when he stands. He reports no syncope or near syncope. He has no palpitations. He complains of pain that radiates from his neck into both sides of his upper chest into his substernal chest that waxes and wanes. His chest pain is made worse with deep inspiration. His troponin has been negative with no acute EKG changes. He has been mildly orthostatic but Cozaar was discontinued. He complains of nausea and vomiting mostly after eats food. No diarrhea. No hematemesis. During the course of his stay, he had a five-beat run of nonsustained ventricular tachycardia. He was asymptomatic. PAST MEDICAL HISTORY 1. A 2D echocardiogram, 06/27/2016, shows an ejection fraction equal to 55 to 60% with mild mitral regurgitation and mild tricuspid regurgitation. 2. Cardiac catheterization, 02/18/2016, showed a left main with 30% mid vessel stenosis. Circumflex artery, first marginal branch, mid vessel 50 to 60%. Second marginal branch 99% proximal. Third marginal branch 99% at its origin. Mid LAD 99% followed by another 50% stenosis. There was mild diffuse disease in the distal LAD. Right coronary artery mid vessel 50% followed by 80 to 90% stenosis. There was 505 stenosis before the bifurcation. PDA normal. PLV with 60 to 70% stenosis. 3. Status post angioplasty to the mid LAD and plain old balloon angioplasty to the first diagonal branch, 02/18/2016. 4. Angioplasty with drug-eluting stent to the proximal two-thirds and distal one-third of the right coronary artery with balloon angioplasty and stent placement to the third marginal branch of the circumflex artery. Plain old balloon angioplasty to the second marginal branch of the circumflex, 03/01/2016. 5. Hypertension. 6. Hyperlipidemia. 7. Diabetes mellitus type 2. 8. Chronic pain syndrome. 9. Obstructive sleep apnea. Unit #: [id number] #: [id number] Patient: BRYNN CAREY 10. End-stage renal disease on hemodialysis. 11. Seizure disorder. 12. Chronic hyponatremia. 13. Statin myopathy. 14. Nonsmoker. PAST SURGICAL HISTORY 1. Cholecystectomy. 2. Cataract extraction. 3. AV fistula creation. 4. Right eye surgery. 5. Hernia repair. SOCIAL HISTORY The patient lives with his girlfriend and two children. He originates from [place]. He has a history of cocaine and IV drug use but quit nine years ago. No current or illicit drug or alcohol use. FAMILY HISTORY Positive for heart problems with his mother. ALLERGIES Vistaril, Phenergan, Flexeril and Benadryl. HOME MEDICATIONS 1. Losartan 50 mg daily. 2. Alphagan one drop both eyes b.i.d. 3. Latanoprost one drop both eyes q.h.s. 4. Pred Forte one drop left eye q.i.d. 5. Cosopt one drop left eye b.i.d. 6. Cartia XT 120 mg daily. 7. Lantus 45 units subcu q.h.s. 8. Aspirin 81 mg daily. 9. Nitrostat 0.4 mg sublingual p.r.n. 10. Lipitor 20 mg q.h.s. 11. Omeprazole 40 mg daily. 12. Albuterol sulfate 5 mg t.i.d. p.r.n. 13. Vitamin D 2,000 units daily. 14. Lopid 600 mg b.i.d. 15. Rifampin 600 mg daily. 16. Brilinta 90 mg daily. REVIEW OF SYSTEMS CONSTITUTIONAL: Negative for fever or chills. The patient reports weakness. HEENT: No headache, hearing or visual changes. Positive for dizziness. CARDIOVASCULAR: The patient has chest pain described in the HPI. The patient denies palpitations. No paroxysmal nocturnal dyspnea or orthopnea. The patient denies syncope or near syncope. RESPIRATORY: Positive for dyspnea and occasional cough. No hemoptysis. GASTROINTESTINAL: The patient reports nausea and vomiting. No abdominal pain. No hematochezia or hematemesis. EXTREMITIES: Negative for lower extremity edema. PHYSICAL EXAMINATION GENERAL APPEARANCE: This is a 46-year-old mildly obese male who is in no acute distress. VITAL SIGNS: Blood pressure 104/47. Heart rate 80. Temperature 98.0. Unit #: [id number] #: [id number] Patient: BRYNN CAREY BMI 32. NEUROLOGIC: He is awake, alert and oriented. There are no focal weaknesses. NECK: Trachea is midline. No thyromegaly or lymphadenopathy. No jugular venous distention. HEART: S1, S2. Heart sounds are normal. No murmurs, rubs or clicks. Regular rate and rhythm. LUNGS: Clear without rales, rhonchi or wheeze. ABDOMEN: Soft, nontender with bowel sounds present. EXTREMITIES: Without leg edema. SKIN: Warm and dry. DIAGNOSTIC STUDIES LABORATORY: Glucose 222, BUN 51, creatinine 7.9, sodium 133, potassium 4.6, AST 90, ALT 91. White count 7.3, hemoglobin 8.0, hematocrit 23.6, platelet count 210. Troponin less than 0.05. IMAGING: CT of the head shows no acute intracranial abnormality. Chest x-ray shows cardiomegaly but no active disease. Ultrasound of the carotids was normal. CARDIOVASCULAR: EKG: Normal sinus rhythm, rate of 78 beats per minute, otherwise, normal. IMPRESSION 1. Dizziness, questionable seizure. 2. Status post PCI and stent to the LAD and first diagonal and PCI and stent to the right coronary artery. PCI and plain old balloon angioplasty to the circumflex third obtuse marginal branch. 3. Hypertension. 4. Hyperlipidemia. 5. Chronic kidney disease. 6. Nausea and vomiting, questionable etiology. PLAN 1. Cardiology was consulted for ventricular tachycardia. We will discontinue Cardizem and start the patient on beta liliana. 2. Because of nausea, we will discontinue Prilosec and give Protonix. 3. Zofran also for nausea. 4. Decrease Cozaar because of postural hypotension. 5. Brilinta will be discontinued and we will start the patient on Plavix. 6. If nausea and vomiting do not improve with changes in medications, we will try a repeat cardiac catheterization. Thank you for allowing us to assist in this patient's care. Dictated by... Vaughn Hand A.P.R.N. for Austen Leonardo M.D. AEP/jim TD: 09/20/2016 08:12 JOB #: [id number] Unit #: [id number] #: [id number] Patient: BRYNN CAREY CONSULTATION REPORT X Vaughn Hand APRN X CONSULTATION REPORT
[2016-09-18 14:30] LABS: BASOPHIL# 0.1 X10e3 (0-0.3); BASOPHIL% 0.9 % (0-2.5); EOSINOPHIL% 0.4 % (0.0-7.0); HEMATOCRIT 24.6 % (38.0-50.0); HEMOGLOBIN 8.4 gm/dL (13.0-16.0); LYMPHOCYTE# 1.5 X10e3 (1.0-3.5); LYMPHOCYTE% 22.6 % (17.0-45.0); MEAN CELL VOLUME 83.1 FL (83-96); MEAN CORPUSCULAR HEMOGLOBIN 28.3 PG (28-34); MEAN CORPUSCULAR HGB CONC 34.1 g/dL (30-36); MEAN PLATELET VOLUME 9.4 FL (6.5-11.5); MONOCYTE# 0.9 X10e3 (0-1.0); MONOCYTE% 13.6 % (3.0-12.0); NEUTROPHIL# 4.2 X10e3 (1.5-7.1); NEUTROPHIL% 62.5 % (40-75); PLATELET COUNT 206 X10e3 (140-420); RED BLOOD COUNT 2.96 X10e (3.90-5.60); RED CELL DISTRIBUTION WIDTH 18.9 % (11.0-15.5); WHITE BLOOD COUNT 6.7 X10e3 (4.0-10.5)
[2016-09-18 14:38] LABS: DIFF IND NO
[2016-09-18 14:42] LABS: URINE SOURCE CLEAN CATCH
[2016-09-18 14:51] LABS: POC - CKMB 2.9 ng/mL (0.0-7.9); POC - TROPONIN <0.05 ng/mL (<=0.05)
[2016-09-18 14:51] LABS: URINE APPEARANCE CLOUDY; URINE BILIRUBIN NEG (NEG); URINE BLOOD 1+ (NEG); URINE COLOR YELLOW; URINE GLUCOSE 250 MG/DL (NEG); URINE KETONE NEG (NEG); URINE LEUKOCYTE ESTERASE NEG (NEG); URINE NITRATE NEG (NEG); URINE PH 6.5 (5-8); URINE PROTEIN 3+ (NEG); URINE UROBILINOGEN 0.2 MG/DL (NEG)
[2016-09-18 14:52] LABS: ALBUMIN SERUM 3.4 g/dL (3.5-5.0); BILIRUBIN, DIRECT 0.3 mg/dL (0.0-0.2); BILIRUBIN,INDIRECT 0.5 mg/dL (0.0-0.9); BILIRUBIN,TOTAL 0.8 mg/dL (0.2-2.0); BUN/CREATININE RATIO 6.12; CALCIUM SERUM 8.8 mg/dL (8.4-10.2); CREATININE SERUM 6.2 mg/dL (0.6-1.4); GLOM FILT RATE Estimated 10.3 mL/min (>60); POTASSIUM 4.2 mmol/L (3.5-5.1); PROTEIN TOTAL SERUM 7.3 g/dL (6.0-8.3)
[2016-09-18 14:58] LABS: URBCS1 AUWI 0-2 /[HPF] (0-2)
[2016-09-18 14:59] LABS: CULTURE INDICATED? NO
[2016-09-19] MEDS ORDERED: LOSARTAN POTASS50 MG PO (00:27)
[2016-09-19] MEDS ORDERED: ALPHAGAN P5 ML OU (00:28)
[2016-09-19] MEDS ORDERED: XALATAN OU (00:29)
[2016-09-19] MEDS ORDERED: PRED FORTE1 ML OD (00:30)
[2016-09-19] MEDS ORDERED: COSOPT1 UNI1 OD (00:31)
[2016-09-19] MEDS ORDERED: CARTIA XT PO (00:32)
[2016-09-19] MEDS ORDERED: RIFAMPIN300 MG PO (00:32)
[2016-09-19] MEDS ORDERED: LANTUS100 UNITS/ SUBQ (00:33)
[2016-09-19] MEDS ORDERED: ASPIRIN81 MG PO (00:33)
[2016-09-19] MEDS ORDERED: NITROSTAT0.4 MG SL (00:34)
[2016-09-19] MEDS ORDERED: OMEPRAZOLE40 M1 PO (00:34)
[2016-09-19] MEDS ORDERED: LIPITOR20 MG PO (00:34)
[2016-09-19] MEDS ORDERED: VENTOLIN5 MG/ML INH (00:35)
[2016-09-19] MEDS ORDERED: VITAMIN D2000 UNIT PO (00:35)
[2016-09-19] MEDS ORDERED: LOPID600 MG PO (00:36)
[2016-09-19] MEDS ORDERED: BRILINTA90 MG PO (00:36)
[2016-09-19 07:37] LABS: BASOPHIL# 0.1 X10e3 (0-0.3); BASOPHIL% 0.9 % (0-2.5); EOSINOPHIL# 0.1 X10e3 (0-0.7); EOSINOPHIL% 0.9 % (0.0-7.0); HEMATOCRIT 23.6 % (38.0-50.0); LYMPHOCYTE# 1.5 X10e3 (1.0-3.5); LYMPHOCYTE% 20.4 % (17.0-45.0); MEAN CELL VOLUME 83.5 FL (83-96); MEAN CORPUSCULAR HEMOGLOBIN 28.3 PG (28-34); MEAN PLATELET VOLUME 9.5 FL (6.5-11.5); MONOCYTE% 13.8 % (3.0-12.0); NEUTROPHIL# 4.7 X10e3 (1.5-7.1); PLATELET COUNT 210 X10e3 (140-420); RED BLOOD COUNT 2.83 X10e (3.90-5.60); RED CELL DISTRIBUTION WIDTH 19.1 % (11.0-15.5); WHITE BLOOD COUNT 7.3 X10e3 (4.0-10.5)
[2016-09-19 07:39] LABS: DIFF IND NO
[2016-09-19 08:06] LABS: BUN/CREATININE RATIO 6.45; CALCIUM SERUM 8.3 mg/dL (8.4-10.2); CREATININE SERUM 7.9 mg/dL (0.6-1.4); GLOM FILT RATE Estimated 7.8 mL/min (>60); POTASSIUM 4.6 mmol/L (3.5-5.1)
[2016-09-19 11:06] LABS: IRON SERUM 45 ug/dL (45-182); TOTAL IRON BINDING CAPACITY 192 ug/dL (252-460); TRANSFERRIN 137 mg/dL (180-329); TRANSFERRIN SATURATION 23 % (20-50)
[2016-09-19 13:54] LABS: FOLATE (FOLIC ACID) 10.7 ng/mL (>5.8)
[2016-09-20 07:21] LABS: HEMATOCRIT 24.6 % (38.0-50.0); HEMOGLOBIN 8.2 gm/dL (13.0-16.0); MEAN CELL VOLUME 84.6 FL (83-96); MEAN CORPUSCULAR HEMOGLOBIN 28.1 PG (28-34); MEAN CORPUSCULAR HGB CONC 33.2 g/dL (30-36); MEAN PLATELET VOLUME 9.7 FL (6.5-11.5); RED BLOOD COUNT 2.91 X10e (3.90-5.60); RED CELL DISTRIBUTION WIDTH 19.1 % (11.0-15.5); WHITE BLOOD COUNT 10.5 X10e3 (4.0-10.5)
[2016-09-20 08:01] LABS: BUN/CREATININE RATIO 7.52; CALCIUM SERUM 8.2 mg/dL (8.4-10.2); CREATININE SERUM 9.3 mg/dL (0.6-1.4); GLOM FILT RATE Estimated 6.5 mL/min (>60); POTASSIUM 4.7 mmol/L (3.5-5.1)
[2016-09-20 10:47] LABS: %MB 3.3 % (0.0-4.0); MB 5.6 ng/ml
[2016-09-21 05:08] LABS: HEMATOCRIT 25.7 % (38.0-50.0); HEMOGLOBIN 8.6 gm/dL (13.0-16.0); MEAN CELL VOLUME 83.6 FL (83-96); MEAN CORPUSCULAR HEMOGLOBIN 27.9 PG (28-34); MEAN CORPUSCULAR HGB CONC 33.4 g/dL (30-36); MEAN PLATELET VOLUME 9.2 FL (6.5-11.5); RED BLOOD COUNT 3.08 X10e (3.90-5.60); RED CELL DISTRIBUTION WIDTH 18.9 % (11.0-15.5); WHITE BLOOD COUNT 9.9 X10e3 (4.0-10.5)
[2016-09-21 06:30] LABS: BILIRUBIN,TOTAL 0.7 mg/dL (0.2-2.0); CALCIUM SERUM 8.1 mg/dL (8.4-10.2); PROTEIN TOTAL SERUM 6.2 g/dL (6.0-8.3)
[2016-09-21 06:35] LABS: BUN/CREATININE RATIO 6.52; CREATININE SERUM 7.2 mg/dL (0.6-1.4); GLOM FILT RATE Estimated 8.7 mL/min (>60)
[2016-09-21 06:36] LABS: POTASSIUM 5.5 mmol/L (3.5-5.1)
[2016-09-22 06:50] LABS: HEMATOCRIT 26.5 % (38.0-50.0); HEMOGLOBIN 8.7 gm/dL (13.0-16.0)
[2016-09-22 07:40] LABS: BILIRUBIN, DIRECT 0.2 mg/dL (0.0-0.2)
[2016-09-22 07:43] LABS: BUN/CREATININE RATIO 7.21; CALCIUM SERUM 8.4 mg/dL (8.4-10.2); CREATININE SERUM 9.7 mg/dL (0.6-1.4); GLOM FILT RATE Estimated 6.2 mL/min (>60)
[2016-09-22 07:51] LABS: POTASSIUM 5.8 mmol/L (3.5-5.1)
[2016-09-22 13:45] LABS: INR 1.3
[2016-09-23 06:06] LABS: HEMATOCRIT 26.9 % (38.0-50.0); HEMOGLOBIN 8.9 gm/dL (13.0-16.0); MEAN PLATELET VOLUME 9.7 FL (6.5-11.5); RED BLOOD COUNT 3.17 X10e (3.90-5.60); RED CELL DISTRIBUTION WIDTH 19.6 % (11.0-15.5); WHITE BLOOD COUNT 8.3 X10e3 (4.0-10.5)
[2016-09-23 07:54] LABS: ALBUMIN SERUM 3.1 g/dL (3.5-5.0); BILIRUBIN,TOTAL 0.4 mg/dL (0.2-2.0); BUN/CREATININE RATIO 6.15; CALCIUM SERUM 8.4 mg/dL (8.4-10.2); CREATININE SERUM 6.5 mg/dL (0.6-1.4); GLOM FILT RATE Estimated 9.8 mL/min (>60); POTASSIUM 4.6 mmol/L (3.5-5.1); PROTEIN TOTAL SERUM 7.1 g/dL (6.0-8.3)
[2016-09-23 14:15] LABS: HA AB IGM (HEPPAN) Nonreactive (Nonreactive); HB CORE AB IGM (HEPPAN) Nonreactive (Nonreactive); HB S AG (HEPPAN) Nonreactive (Nonreactive); HEP C AB (HEPPAN) Nonreactive (Nonreactive); HEP C AB SIGNAL TO CUTOFF 0.03 ratio (<1.00)
[2016-09-24 07:40] LABS: HEMATOCRIT 25.7 % (38.0-50.0); HEMOGLOBIN 8.7 gm/dL (13.0-16.0); MEAN CELL VOLUME 83.7 FL (83-96); MEAN CORPUSCULAR HEMOGLOBIN 28.2 PG (28-34); MEAN CORPUSCULAR HGB CONC 33.7 g/dL (30-36); MEAN PLATELET VOLUME 9.3 FL (6.5-11.5); RED BLOOD COUNT 3.07 X10e (3.90-5.60); RED CELL DISTRIBUTION WIDTH 19.7 % (11.0-15.5); WHITE BLOOD COUNT 8.9 X10e3 (4.0-10.5)
[2016-09-24 07:57] LABS: INR 1.2; PROTHROMBIN TIME (PATIENT) 12.4 SECONDS (9.6-11.5)
[2016-09-24 08:24] LABS: BILIRUBIN,TOTAL 0.8 mg/dL (0.2-2.0); BUN/CREATININE RATIO 7.34; CALCIUM SERUM 7.8 mg/dL (8.4-10.2); CREATININE SERUM 8.3 mg/dL (0.6-1.4); GLOM FILT RATE Estimated 7.4 mL/min (>60); PHOSPHOROUS 5.2 mg/dL (2.5-4.6); PROTEIN TOTAL SERUM 6.8 g/dL (6.0-8.3)
[2016-09-24 08:43] LABS: POTASSIUM 5.6 mmol/L (3.5-5.1)
[2016-09-25 03:48] LABS: HEMATOCRIT 25.3 % (38.0-50.0); HEMOGLOBIN 8.3 gm/dL (13.0-16.0); MEAN CELL VOLUME 84.2 FL (83-96); MEAN CORPUSCULAR HEMOGLOBIN 27.7 PG (28-34); MEAN CORPUSCULAR HGB CONC 32.9 g/dL (30-36); MEAN PLATELET VOLUME 8.8 FL (6.5-11.5); RED CELL DISTRIBUTION WIDTH 19.8 % (11.0-15.5); WHITE BLOOD COUNT 9.1 X10e3 (4.0-10.5)
[2016-09-25 04:31] LABS: ALBUMIN SERUM 2.9 g/dL (3.5-5.0); BILIRUBIN,TOTAL 0.8 mg/dL (0.2-2.0); BUN/CREATININE RATIO 6.96; CALCIUM SERUM 7.8 mg/dL (8.4-10.2); CREATININE SERUM 6.6 mg/dL (0.6-1.4); GLOM FILT RATE Estimated 9.6 mL/min (>60); MAGNESIUM 2.1 mg/dL (1.6-3.0); POTASSIUM 5.1 mmol/L (3.5-5.1); PROTEIN TOTAL SERUM 6.8 g/dL (6.0-8.3)
[2016-09-26 06:16] LABS: HEMATOCRIT 25.8 % (38.0-50.0); HEMOGLOBIN 8.5 gm/dL (13.0-16.0); MEAN CELL VOLUME 84.7 FL (83-96); RED BLOOD COUNT 3.04 X10e (3.90-5.60); RED CELL DISTRIBUTION WIDTH 19.3 % (11.0-15.5); WHITE BLOOD COUNT 8.8 X10e3 (4.0-10.5)
[2016-09-26 07:25] LABS: ALBUMIN SERUM 2.9 g/dL (3.5-5.0); BILIRUBIN,TOTAL 0.6 mg/dL (0.2-2.0); BUN/CREATININE RATIO 6.94; CALCIUM SERUM 7.9 mg/dL (8.4-10.2); CREATININE SERUM 5.9 mg/dL (0.6-1.4); GLOM FILT RATE Estimated 10.9 mL/min (>60); POTASSIUM 4.9 mmol/L (3.5-5.1); PROTEIN TOTAL SERUM 6.6 g/dL (6.0-8.3)
[2016-09-27 05:25] LABS: HEMOGLOBIN 8.7 gm/dL (13.0-16.0); MEAN CELL VOLUME 84.5 FL (83-96); MEAN CORPUSCULAR HEMOGLOBIN 27.4 PG (28-34); MEAN CORPUSCULAR HGB CONC 32.4 g/dL (30-36); MEAN PLATELET VOLUME 9.3 FL (6.5-11.5); RED BLOOD COUNT 3.19 X10e (3.90-5.60); RED CELL DISTRIBUTION WIDTH 19.6 % (11.0-15.5); WHITE BLOOD COUNT 8.3 X10e3 (4.0-10.5)
[2016-09-27 05:56] LABS: BUN/CREATININE RATIO 7.45; CALCIUM SERUM 7.9 mg/dL (8.4-10.2); CREATININE SERUM 5.9 mg/dL (0.6-1.4); GLOM FILT RATE Estimated 10.9 mL/min (>60); POTASSIUM 4.8 mmol/L (3.5-5.1)
[2016-09-28 10:30] LABS: HEMATOCRIT 26.7 % (38.0-50.0); HEMOGLOBIN 8.8 gm/dL (13.0-16.0); MEAN CELL VOLUME 83.4 FL (83-96); MEAN CORPUSCULAR HEMOGLOBIN 27.4 PG (28-34); MEAN CORPUSCULAR HGB CONC 32.9 g/dL (30-36); MEAN PLATELET VOLUME 8.8 FL (6.5-11.5); RED BLOOD COUNT 3.2 X10e (3.90-5.60); RED CELL DISTRIBUTION WIDTH 19.4 % (11.0-15.5); WHITE BLOOD COUNT 9.4 X10e3 (4.0-10.5)
[2016-09-28 11:03] LABS: ALBUMIN SERUM 2.9 g/dL (3.5-5.0); BILIRUBIN,TOTAL 0.5 mg/dL (0.2-2.0); BUN/CREATININE RATIO 8.44; CALCIUM SERUM 7.7 mg/dL (8.4-10.2); CREATININE SERUM 7.7 mg/dL (0.6-1.4); POTASSIUM 5.3 mmol/L (3.5-5.1); PROTEIN TOTAL SERUM 6.9 g/dL (6.0-8.3)
[2016-09-29 08:02] LABS: HEMATOCRIT 27.5 % (38.0-50.0); HEMOGLOBIN 8.9 gm/dL (13.0-16.0); MEAN CELL VOLUME 83.5 FL (83-96); MEAN CORPUSCULAR HEMOGLOBIN 27.2 PG (28-34); MEAN CORPUSCULAR HGB CONC 32.5 g/dL (30-36); MEAN PLATELET VOLUME 8.4 FL (6.5-11.5); RED BLOOD COUNT 3.29 X10e (3.90-5.60); RED CELL DISTRIBUTION WIDTH 19.9 % (11.0-15.5); WHITE BLOOD COUNT 9.2 X10e3 (4.0-10.5)
[2016-09-29 08:40] LABS: BUN/CREATININE RATIO 7.14; CALCIUM SERUM 8.2 mg/dL (8.4-10.2); CREATININE SERUM 6.3 mg/dL (0.6-1.4); GLOM FILT RATE Estimated 10.1 mL/min (>60)
[2016-09-29] MEDS ORDERED: KEPPRA500 M2 PO (17:27)
[2016-09-29] MEDS ORDERED: LEVEMIR100 UNITS/ SUBQ ×2 (17:28→17:29)
[2016-09-29] MEDS ORDERED: METOPROLOL TAR25 MG PO (17:28)
[2016-09-29] MEDS ORDERED: COLCHICINE PO (17:29)
== END 2016-09-29 19:27 | disposition home health service (06) | DRG 314 ==
LOC: CED 14:34 → CEDOF 18:49 → C3A PCU 09-20 18:48
PROVIDERS: Emergency Medicine; Internal Medicine; Internal Medicine Cardiovascular Disease; Internal Medicine Nephrology; Nurse Practitioner; Psychiatry & Neurology Neurology; Surgery
PROC: 5A1D60Z (ICD-10-PCS; principal; 2016-09-20)
PROC: B24BYZZ Ultrasonography of Heart with Aorta using Other Contrast (ICD-10-PCS; 2016-09-22)
DX: I31.3 Pericardial effusion (noninflammatory) (principal); N18.6 End stage renal disease; I47.2 Ventricular tachycardia; G92 Toxic encephalopathy; R18.8 Other ascites; N17.9 Acute kidney failure, unspecified; I12.0 Hypertensive chronic kidney disease with stage 5 chronic kidney disease or end stage renal disease; E10.22 Type 1 diabetes mellitus with diabetic chronic kidney disease; E87.1 Hypo-osmolality and hyponatremia; Z99.2 Dependence on renal dialysis; Z91.15 Patient's noncompliance with renal dialysis; Z79.4 Long term (current) use of insulin; I08.1 Rheumatic disorders of both mitral and tricuspid valves; R42 Dizziness and giddiness; E87.5 Hyperkalemia; F32.9 Major depressive disorder, single episode, unspecified; G40.909 Epilepsy, unspecified, not intractable, without status epilepticus; E21.3 Hyperparathyroidism, unspecified; Z90.49 Acquired absence of other specified parts of digestive tract; Z79.82 Long term (current) use of aspirin; K74.60 Unspecified cirrhosis of liver; D63.1 Anemia in chronic kidney disease; I51.7 Cardiomegaly; E10.40 Type 1 diabetes mellitus with diabetic neuropathy, unspecified; E10.319 Type 1 diabetes mellitus with unspecified diabetic retinopathy without macular edema; G47.33 Obstructive sleep apnea (adult) (pediatric); Z98.42 Cataract extraction status, left eye; Z98.41 Cataract extraction status, right eye; R55 Syncope and collapse; Z95.5 Presence of coronary angioplasty implant and graft; G89.4 Chronic pain syndrome; G72.89 Other specified myopathies; I95.9 Hypotension, unspecified; Z91.19 Patient's noncompliance with other medical treatment and regimen; E66.01 Morbid (severe) obesity due to excess calories; T40.605A Adverse effect of unspecified narcotics, initial encounter; Z68.32 Body mass index [BMI] 32.0-32.9, adult
CPT/HCPCS: 36415; 70450; 71010; 74176; 76705; 80048; 80053; 80061; 80074; 80076; 81003; 82105; 82150; 82248; 82274; 82550; 82553; 82607; 82728; 82746; 82947; 83540; 83550; 83735; 83880; 84075; 84100; 84450; 84460; 84484; 85014; 85018; 85025; 85027; 85610; 85730; 86334; 86850; 86900; 86901; 86923; 87040; 93005; 93306; 93308; 93880; 94640; 94760; 95816; 96361; 96374; 96375; 97162; 97165; 99285; J0360; J0885; J1815; J2060; J2405; Q4081

== ENCOUNTER 2016-10-03 03:52 | Inpatient (IN) | payer MEDICARE, OTHER ==
--- NOTE | ~2016-10-03 | DS ---
Unit #: [id number] #: [id number] Patient: BRYNN CAREY [id number] [address] [address] [id number] I MR#: [id number] NAME: BRYNN CAREY ROOM: 327 Age: 46 Sex: M Admission Date: 10/03/2016 : 1970 Discharge Date: Attending Physician: Dominique Quinones M.D. Referring Physician: Ha Drummond M.D. Primary Care Physician: Mahin Martin M.D. DISCHARGE SUMMARY DISCHARGE DIAGNOSES 1. Fluid overload most likely from end-stage renal disease and also from pericardial effusion. 2. Pericardial effusion. 3. End-stage renal disease on hemodialysis. 4. Bilateral leg pain most likely secondary to neuropathy. 5. Hypertension, uncontrolled. 6. History of noncompliance. 7. Obstructive sleep apnea. 8. Morbid obesity. 9. Anemia secondary to chronic kidney disease. 10. Hyperparathyroidism. 11. History of seizures. 12. Hyperlipidemia. 13. 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 14. Elevated liver enzymes. CONSULTATIONS Dr. De Santiago and Dr. Leonardo. PROCEDURES None. DIAGNOSTIC STUDIES LABORATORY DATA: Sodium 135, potassium 4.2, creatinine 4.5, calcium 8.2. WBC 7.1, hemoglobin 9.0, platelets 214. Blood glucose 216. Troponin 0.06. IMAGING: Chest x-ray, two-view, shows cardiomegaly, mild vascular congestion. CARDIOVASCULAR: EKG shows a normal sinus rhythm. ALLERGIES Hydroxyzine, promethazine, cyclobenzaprine, diphenhydramine. DISCHARGE MEDICATIONS 1. Albuterol two puff inhalation three times daily p.r.n. 2. Prednisolone acetate eye drops four times daily. 3. Keppra 500 mg p.o. b.i.d. 4. Rifampin 600 mg p.o. daily. 5. Cosopt one drop p.o. b.i.d. 6. Metoprolol 12.5 mg p.o. b.i.d. 7. Xalatan eye drops at bedtime. 8. Levemir 12 units subcu daily in the morning. Unit #: [id number] #: [id number] Patient: BRYNN CAREY 9. Levemir 13 units subcu at bedtime. 10. Alphagan eye drops b.i.d. 11. Colchicine 0.3 mg daily. 12. Aspirin 81 mg daily. 13. Brilinta 90 mg p.o. b.i.d. 14. Omeprazole 40 mg daily. 15. Nitrostat 0.4 sublingual p.r.n. chest pain. 16. Vitamin D 2,000 p.o. daily. 17. Lortab 5 mg three times daily p.r.n. pain. 18. Neurontin 100 mg p.o. b.i.d. HOSPITALIZATION COURSE A 46-year-old admitted because of shortness of breath. Fluid overload from chronic kidney disease and pericardial effusion: The patient received dialysis, currently breathing better. The patient is okay to be discharged by Cardiology and Renal. Pericardial effusion: The patient was seen by Cardiology. They recommend medical management only. Repeat echocardiogram has been done which shows organizing effusion. No evidence of tamponade. According to Dr. Leonardo, the patient can continue with hemodialysis and discharge home. No intervention needed. End-stage renal disease: The patient received hemodialysis in the hospital. The patient will follow with Dr. De Santiago for outpatient hemodialysis. Leg pain most likely secondary to neuropathy: I gave Neurontin and Lortab. I gave only for a week because she was very lethargic last time when he got the narcotics but he would then stay still during dialysis without the pain medication so I gave some but he needs to follow with family physician for further medications. The patient will be discharged home, follow with the family physician in one week's time. Discussed with Dr. Leonardo. Okay to discharge this patient home. Dictated by... Kwadwo Villaseñor TD: 10/05/2016 13:06 JOB #: [id number] DISCHARGE SUMMARY Page 1 of 1 X Dominique Quinones MD DISCHARGE SUMMARY
--- NOTE | ~2016-10-03 | HP ---
Unit #: [id number] #: [id number] Patient: BRYNN CAREY [id number] [address] [place], [place] [address] [id number] I MR#: [id number] NAME: BRYNN CAREY ROOM: 327 Age: 46 Sex: M Admission Date: 10/03/2016 : 1970 Attending Physician: Dominique Quinones M.D. Referring Physician: Ha Drummond M.D. Primary Care Physician: Mahin Martin M.D. HISTORY AND PHYSICAL CHIEF COMPLAINT Fluid overload. HISTORY OF PRESENT ILLNESS The patient is a 46-year-old admitted because of fluid overload. He was recently discharged on 09/29/2016 from our hospital for pericardia effusion and fluid overload. According to him, he said he did not miss any dialysis, but he gained weight. He was short of breath and couldn't lie flat for a few days so he came to the emergency room and got admitted. No chest pain. No fever. No chills. Had shortness of breath. Had leg swelling. He had shortness of breath on lying flat. He also complains of leg pain, possible neuropathy. PAST MEDICAL HISTORY 1. Recent diagnosis with pericardial effusion. 2. Endstage renal disease on hemodialysis, following with Dr. De Santiago. 3. Fluid overload. 4. Coronary artery disease, status post S[employer]IOR [employer]ICER stent in 02/2016. 5. Elevated liver enzymes. 6. Diabetes mellitus type 2, with neuropathy and retinopathy. 7. Hyperlipidemia. 8. Depression. 9. Obstructive sleep apnea. 10. Seizures. 11. Hyperparathyroidism. 12. Hypertension. 13. Anemia secondary to chronic kidney disease. 14. Morbid obesity. CONSULTANTS Dr. De Santiago. PAST SURGICAL HISTORY 1. Cholecystectomy. 2. Cataract surgery. 3. Hernia repair. 4. AV fistula. SOCIAL HISTORY The patient has a history of cocaine and IV heroin in the past. Currently he denies smoking. No illicit drugs. FAMILY HISTORY Positive for diabetes. Unit #: [id number] #: [id number] Patient: BRYNN CAREY ALLERGIES Hydroxyzine, promethazine, cyclobenzaprine, diphenhydramine. CURRENT HOME MEDICATIONS 1. Colchicine 0.3 mg p.o. daily. 2. Aspirin 81 mg daily. 3. Nitrostat 0.4 mg sublingual as directed. 4. Omeprazole 40 mg daily. 5. Ventolin 5 mg inhalation t.i.d. 6. Vitamin D 2000 p.o. daily. 7. Brilinta 90 mg p.o. b.i.d. 8. Keppra 500 mg p.o. b.i.d. 9. Metoprolol 12.5 mg p.o. b.i.d. 10. Levemir 12 units subcutaneous daily. 11. Levemir 13 units subcutaneous at bedtime. 12. Alphagan eyedrops b.i.d. 13. Xalatan 1 drop at bedtime. 14. Prednisone forte 1 ml q.i.d. 15. Cosopt 1 drop b.i.d. 16. Rifampin 600 mg p.o. daily. REVIEW OF SYSTEMS No headache. No visual changes. No skin rash. No dizziness. No passing out. No new weakness, numbness or tingling. Reviewed 12-point systems with the patient, which are negative except as per history of present illness. PHYSICAL EXAMINATION GENERAL: The patient is a 46-year-old sitting on the bed, not in acute distress. Able to provide history. Alert and oriented time three. VITALS: Temperature 97.5, pulse 84, respiratory rate 16, blood pressure 190/85. HEENT: Pupils equally reactive to light and accommodation. No pallor. No icterus. Dry mucosa present. NECK: Supple. LUNGS: Clear to auscultation. Occasional left lower crackles present, otherwise normal. HEART: S1 and S2. Regular rhythm. ABDOMEN: Mildly distended. Bowel sounds present. No hepatosplenomegaly. EXTREMITIES: Edema present. NEUROLOGIC: No focal neurological deficits. DIAGNOSTIC STUDIES IMAGING: Chest x-ray shows cardiomegaly. Mild vascular congestion. Pleural effusion trace. LABORATORY: Troponin 0.12, sodium 132, potassium 4.6, creatinine 7.8, AST 21, ALT 35, alkaline phosphatase 457, albumin 3.7, creatinine 7.8, white blood cell count 8.7, hemoglobin 9.2, platelets 243. BNP 3,188. ASSESSMENT The patient is a 46-year-old admitted with shortness of breath. 1. Shortness of breath secondary to fluid overload from chronic kidney disease and also from pericardial effusion. The patient is having hemodialysis today. Dr. De Santiago and Dr. Leonardo are closing following. 2. Pericardial effusion. No tamponade. Continue with hemodialysis as per cardiology. Unit #: [id number] #: [id number] Patient: BRYNN CAREY 3. Endstage renal disease. Continue with hemodialysis. Monitor his electrolytes. 4. Hyponatremia. Most likely secondary to chronic kidney disease. Monitor. 5. Diabetes mellitus type 2, uncontrolled, with neuropathy and retinopathy. I am going to continue with his Levemir and sliding scale. 6. Morbid obesity secondary to calories. Continue with low-calorie diet. 7. Hypertension, uncontrolled, secondary to chronic kidney disease. Continue with hemodialysis. 8. Protonix 40 mg daily and Lovenox 40 mg subcutaneous daily for DVT and GI prophylaxis. Dictated by Dominique Quinones M.D. KJ/gz TD: 10/03/2016 15:22 JOB #: [id number] CC: Mahin Martin M.D. HISTORY AND PHYSICAL Page 1 of 1 X Dominique Quinones MD X HISTORY AND PHYSICAL
--- NOTE | ~2016-10-03 | EKG ---
PATIENT: BRYNN CAREY UNIT #: [id number] Ventricular Rate: 72 BPM Atrial Rate: 72 BPM P-R Interval: 162 ms QRS Duration: 86 ms Q-T Interval: 396 ms QTC Calculation(Bezet): 433 ms P [place]: 35 degrees Calculated R [place]: 50 degrees Calculated T [place]: 135 degrees Diagnosis Line: Normal sinus rhythm Diagnosis Line: ST and T wave abnormality, consider inferior Diagnosis Line: ischemia Diagnosis Line: ST and T wave abnormality, consider anterolateral Diagnosis Line: ischemia Diagnosis Line: Abnormal ECG Diagnosis Line: When compared with ECG of 03-OCT-2016 19:47, Diagnosis Line: (unconfirmed) Diagnosis Line: Nonspecific T wave abnormality now evident in Diagnosis Line: Inferior leads Diagnosis Line: Confirmed by ELVIN NAPIER MD ([id number]) on 10/04/2016 Diagnosis Line: 10:29:53 PM INTERPRETING MD: QUYEN PARTIDA
--- NOTE | ~2016-10-03 | EKG ---
PATIENT: BRYNN CAREY UNIT #: [id number] Ventricular Rate: 83 BPM Atrial Rate: 83 BPM P-R Interval: 152 ms QRS Duration: 80 ms Q-T Interval: 366 ms QTC Calculation(Bezet): 430 ms P [place]: 41 degrees Calculated R [place]: 48 degrees Calculated T [place]: 60 degrees Diagnosis Line: Normal sinus rhythm Diagnosis Line: T wave abnormality, consider anterior ischemia Diagnosis Line: Abnormal ECG Diagnosis Line: No previous ECGs available Diagnosis Line: Confirmed by MATT MONAHAN MD ([id number]) on 10/03/2016 Diagnosis Line: 11:03:28 PM INTERPRETING MD: HERO PARTIDA
--- NOTE | ~2016-10-03 | CR63 ---
[facility] A Service of [facility] RADIOLOGY TEXT RESULTS PATIENT: BRYNN CAREY LOCATION: [facility] 327-01 : [birth year] UNIT #: [id number] AGE: [address]: Dominique Quinones MD SEX: M ORDER DR: [id number] [facility] [address]. [place], [place] [address] [id number] I MR#: [id number] Acc #: [id number] NAME: BRYNN CAREY : 1970 SEX: M STUDY DATE/TIME: 10/03/2016 2:52 UNIT: CEDOF ROOM: [id number] STUDY DESCRIPTION: CR Chest 2 View Attending Physician: Dominique Quinones M.D. Referring Physician: Ha Drummond M.D. Ordering Physician: Leia Babin M.D. Primary Care Physician: Mahin Martin M.D. MEDICAL IMAGING REPORT This report is preliminary unless electronic signature is present EXAM Two-view chest, 10/03/2016. INDICATION 46-year-old male with shortness of air, generalized weakness, symptoms for a day. Chronic symptoms since 09/27/2016, hypertension, asthma, diabetes. TECHNIQUE Two-view chest was performed. COMPARISON 09/27/2016 FINDINGS Cardiac silhouette is enlarged but stable. There is globular cardiomegaly. There is mild prominence of the interstitium without distinct cephalization. Correlate with volume status for mild vascular congestion. There is no new dense consolidation. Trace amount of pleural fluid bilaterally. There is some probable atelectasis in the mid and lower lung zone on the left. No pneumothorax. IMPRESSION 1. Globular cardiomegaly with imaging features suggestive of mild vascular congestion. 2. Faint Ana B lines suspected. Correlate with volume status. 3. Trace pleural effusions and probable atelectasis in the mid and lower lungs on the left. No pneumothorax. Dictated by... Stephen Quintero M.D. [facility] A Service [facility] RADIOLOGY TEXT RESULTS PATIENT: BRYNN CAREY LOCATION: [facility] 327-01 : [birth year] UNIT #: [id number] AGE: [address]: Dominique Quinones MD SEX: M ORDER DR: THIS IS AN ELECTRONICALLY VERIFIED REPORT Stephen Quintero M.D. at 10/03/2016 9:59 PM Rebeka TD: 10/03/2016 10:42 JOB #: [id number] MEDICAL IMAGING REPORT Page 1 of 1 COPY
--- NOTE | ~2016-10-03 | EKG ---
PATIENT: BRYNN CAREY UNIT #: [id number] Ventricular Rate: 68 BPM Atrial Rate: 68 BPM P-R Interval: 158 ms QRS Duration: 94 ms Q-T Interval: 422 ms QTC Calculation(Bezet): 448 ms P [place]: 36 degrees Calculated R [place]: 74 degrees Calculated T [place]: 121 degrees Diagnosis Line: Normal sinus rhythm Diagnosis Line: T wave abnormality, consider anterolateral Diagnosis Line: ischemia Diagnosis Line: Abnormal ECG Diagnosis Line: When compared with ECG of 03-OCT-2016 03:24, Diagnosis Line: (unconfirmed) Diagnosis Line: Nonspecific T wave abnormality no longer evident Diagnosis Line: in Inferior leads Diagnosis Line: Confirmed by ELVIN NAPIER MD ([id number]) on 10/04/2016 Diagnosis Line: 10:28:54 PM INTERPRETING MD: QUYEN PARTIDA
--- NOTE | ~2016-10-03 | CO ---
Unit #: [id number] #: [id number] Patient: BRYNN CAREY [id number] [address] [place], [place] [address] [id number] I MR#: [id number] NAME: BRYNN CAREY ROOM: 327 Age: 46 Sex: M Admission Date: 10/03/2016 : 1970 Attending Physician: Dominique Quinones M.D. Primary Care Physician: Mahin Martin M.D. Consultation Date: 10/03/2016 CONSULTATION REPORT REASON FOR CONSULT End-stage renal disease. HISTORY OF PRESENT ILLNESS Thank you very much for having me see this patient again. Mr. Carey is a 46-year-old gentleman who presented to the hospital again. He was just released from the hospital last week. He has an end-stage renal disease, on dialysis every Monday, , and Monday. Last hospitalization, he was noted to have a large pericardial effusion, although no tamponade. He was in heart failure as well. A repeat echo in the hospital showed it did have some mild improvement and according to cardiology and surgery they decided not to tap it. It was felt from my standpoint that it would probably be a uremic pericarditis secondary to poor compliance. The patient presents here today with increased shortness of breath, chest pain, and leg pain. He did state he went to his dialysis for four hours on Monday but I have not confirmed this with the dialysis unit. He denies any fevers, chills, cough, hemoptysis. No neck pain. No severe abdominal pain, nausea, vomiting. PAST MEDICAL HISTORY 1. History of end-stage renal disease, as mentioned above. 2. History of atherosclerotic coronary artery disease, status post stent placement in the past. 3. History of pericardial effusion. 4. History of diabetes mellitus. 5. History of obstructive sleep apnea. 6. History of poor compliance. 7. History of hypertension. 8. History of seizures. 9. History of anemia. 10. History of opioid use in the past. MEDICATIONS 1. Inhalers. 2. Keppra 500 mg twice a day. 3. Rifampin 500 mg a day. 4. Metoprolol 12.5 mg b.i.d. 5. Aspirin 81 mg a day. 6. Brilinta 90 mg b.i.d. 7. Omeprazole 40 mg a day. 8. Colchicine 0.3 mg daily x14 days when he was discharged last week. FAMILY HISTORY Noncontributory. Unit #: [id number] #: [id number] Patient: BRYNN CAREY REVIEW OF SYSTEMS As mentioned in the HPI. SOCIAL HISTORY Does not smoke. PHYSICAL EXAMINATION GENERAL: He is alert and oriented. VITAL SIGNS: Temperature 98.1, pulse 83-88, blood pressure 150s to 190s over 85 to 98. HEENT: Normocephalic and atraumatic. Pupils are equal, round, and reactive to light. Extraocular muscles are intact. Hearing appears to be normal. His mouth is clear. No erythema. No exudate. NECK: Supple. No JVD. CARDIAC: He has a regular rhythm without a rub. No S3 or S4. I do not hear a rub at this time. LUNGS: Decreased breath sounds in his bases and a few crackles at his bases. Upper lungs are clear. ABDOMEN: Bowel sounds positive. Nontender, soft. EXTREMITIES: He does have positive lower extremity edema. NEUROLOGIC: His neuro appears to be intact to motor and sensory grossly. GENITOURINARY: Deferred. DIAGNOSTIC STUDIES LABORATORY: Laboratory data shows sodium 132, potassium 4.6, chloride 94, bicarbonate 25, BUN 55, creatinine 7, glucose 169. His calcium is 8.5. Albumin 3.4. BNP is 3188. Hemoglobin is 9.2, white count 8700, platelets 243,000. IMAGING: Chest x-ray showed cardiomegaly and increased edema. ASSESSMENT AND PLAN 1. End-stage renal disease: Again, patient with dialysis on Monday, he states. He does have increased volume again on exam. Will plan on dialyzing four hours today and then re-evaluate him tomorrow. Will follow his electrolytes as well. Await cardiology's recommendation about a possible drainage of that pericardial effusion. Will continue to follow. 2. Hypertension: Restart medications. Will follow trends and adjust and try to again continue to challenge his fluid removal. 3. History of heart disease, status post percutaneous transluminal coronary angioplasty with pericardial effusion. 4. Obstructive sleep apnea. 5. History of noncompliance. Dictated by..Maico De Santiago M.D. JOVANNY/sarah TD: 10/04/2016 08:58 JOB #: [id number] Unit #: [id number] #: [id number] Patient: BRYNN CAREY CONSULTATION REPORT Page 1 of 1 X Alexandria De Santiago MD CONSULTATION REPORT
[2016-10-03 03:15] LABS: POC - CKMB 2.6 ng/mL (0.0-7.9); POC - TROPONIN 0.12 ng/mL (<=0.05)
[2016-10-03 03:46] LABS: ALBUMIN SERUM 3.4 g/dL (3.5-5.0); BILIRUBIN, DIRECT 0.2 mg/dL (0.0-0.2); BILIRUBIN,INDIRECT 0.2 mg/dL (0.0-0.9); BILIRUBIN,TOTAL 0.4 mg/dL (0.2-2.0); BUN/CREATININE RATIO 7.05; CALCIUM SERUM 8.6 mg/dL (8.4-10.2); CREATININE SERUM 7.8 mg/dL (0.6-1.4); GLOM FILT RATE Estimated 7.4 mL/min (>60); POTASSIUM 4.6 mmol/L (3.5-5.1); PROTEIN TOTAL SERUM 7.7 g/dL (6.0-8.3)
[~2016-10-03 03:52] MED LIST changes: +ASPIRIN81 MG PO; +CARTIA XT PO; +COLCHICINE PO; +COSOPT1 UNI1 OD; +LEVEMIR100 UNITS/ SUBQ; +METOPROLOL TAR25 MG PO; +NITROSTAT0.4 MG SL; +PRED FORTE1 ML OD; +RIFAMPIN300 MG PO; +VENTOLIN5 MG/ML INH
[2016-10-03 04:46] LABS: BASOPHIL# 0.1 X10e3 (0-0.3); BASOPHIL% 0.8 % (0-2.5); EOSINOPHIL# 0.2 X10e3 (0-0.7); EOSINOPHIL% 2.1 % (0.0-7.0); HEMATOCRIT 27.5 % (38.0-50.0); HEMOGLOBIN 9.2 gm/dL (13.0-16.0); LYMPHOCYTE# 1.7 X10e3 (1.0-3.5); LYMPHOCYTE% 19.5 % (17.0-45.0); MEAN CELL VOLUME 80.8 FL (83-96); MEAN CORPUSCULAR HGB CONC 33.4 g/dL (30-36); MEAN PLATELET VOLUME 7.9 FL (6.5-11.5); MONOCYTE# 1.2 X10e3 (0-1.0); MONOCYTE% 13.3 % (3.0-12.0); NEUTROPHIL# 5.6 X10e3 (1.5-7.1); NEUTROPHIL% 64.3 % (40-75); PLATELET COUNT 243 X10e3 (140-420); RED CELL DISTRIBUTION WIDTH 20.2 % (11.0-15.5); WHITE BLOOD COUNT 8.7 X10e3 (4.0-10.5)
[2016-10-03 04:47] LABS: DIFF IND NO
[2016-10-03 05:00] LABS: POC - TROPONIN <0.05 ng/mL (<=0.05)
[2016-10-03 12:36] LABS: %MB 3.9 % (0.0-4.0); MB 8.6 ng/ml
[2016-10-03 19:07] LABS: %MB 4.2 % (0.0-4.0); MB 8.9 ng/ml
[2016-10-03 23:22] LABS: %MB 4.4 % (0.0-4.0)
[2016-10-04 06:28] LABS: HEMATOCRIT 27.7 % (38.0-50.0); MEAN CELL VOLUME 82.1 FL (83-96); MEAN CORPUSCULAR HEMOGLOBIN 26.7 PG (28-34); MEAN CORPUSCULAR HGB CONC 32.5 g/dL (30-36); MEAN PLATELET VOLUME 8.6 FL (6.5-11.5); RED BLOOD COUNT 3.37 X10e (3.90-5.60); RED CELL DISTRIBUTION WIDTH 19.7 % (11.0-15.5); WHITE BLOOD COUNT 6.8 X10e3 (4.0-10.5)
[2016-10-04 07:56] LABS: %MB 4.1 % (0.0-4.0); MB 8.7 ng/ml
[2016-10-04 09:57] LABS: BUN/CREATININE RATIO 6.29; CALCIUM SERUM 8.6 mg/dL (8.4-10.2); CREATININE SERUM 5.4 mg/dL (0.6-1.4); GLOM FILT RATE Estimated 11.5 mL/min (>60); POTASSIUM 4.5 mmol/L (3.5-5.1)
[2016-10-05 06:26] LABS: HEMATOCRIT 27.4 % (38.0-50.0); MEAN CELL VOLUME 81.5 FL (83-96); MEAN CORPUSCULAR HEMOGLOBIN 26.8 PG (28-34); MEAN CORPUSCULAR HGB CONC 32.9 g/dL (30-36); MEAN PLATELET VOLUME 8.7 FL (6.5-11.5); RED BLOOD COUNT 3.36 X10e (3.90-5.60); RED CELL DISTRIBUTION WIDTH 19.8 % (11.0-15.5); WHITE BLOOD COUNT 7.1 X10e3 (4.0-10.5)
[2016-10-05 07:06] LABS: BUN/CREATININE RATIO 5.55; CALCIUM SERUM 8.2 mg/dL (8.4-10.2); CREATININE SERUM 4.5 mg/dL (0.6-1.4); GLOM FILT RATE Estimated 14.4 mL/min (>60); POTASSIUM 4.2 mmol/L (3.5-5.1)
[2016-10-05] MEDS ORDERED: NEURONTIN100 MG PO (13:24)
[2016-10-05] MEDS ORDERED: HYDROCODONE-A1 UDTA3 PO (13:26)
== END 2016-10-05 17:30 | disposition home health service (06) | DRG 314 ==
LOC: CED 03:52 → CEDOF 05:20 → C3A PCU 14:40
PROVIDERS: Internal Medicine; Internal Medicine Cardiovascular Disease; Student in an Organized Health Care Education/Training Program
PROC: 5A1D60Z (ICD-10-PCS; principal; 2016-10-03)
PROC: B24BYZZ Ultrasonography of Heart with Aorta using Other Contrast (ICD-10-PCS; 2016-10-03)
DX: I31.3 Pericardial effusion (noninflammatory) (principal); N18.6 End stage renal disease; E11.40 Type 2 diabetes mellitus with diabetic neuropathy, unspecified; I12.0 Hypertensive chronic kidney disease with stage 5 chronic kidney disease or end stage renal disease; E87.1 Hypo-osmolality and hyponatremia; Z99.2 Dependence on renal dialysis; I25.10 Atherosclerotic heart disease of native coronary artery without angina pectoris; Z95.5 Presence of coronary angioplasty implant and graft; Z79.84 Long term (current) use of oral hypoglycemic drugs; E11.319 Type 2 diabetes mellitus with unspecified diabetic retinopathy without macular edema; E78.5 Hyperlipidemia, unspecified; F32.9 Major depressive disorder, single episode, unspecified; G47.33 Obstructive sleep apnea (adult) (pediatric); G40.909 Epilepsy, unspecified, not intractable, without status epilepticus; D63.1 Anemia in chronic kidney disease; E66.01 Morbid (severe) obesity due to excess calories; Z90.49 Acquired absence of other specified parts of digestive tract; Z98.49 Cataract extraction status, unspecified eye; Z79.82 Long term (current) use of aspirin; E11.65 Type 2 diabetes mellitus with hyperglycemia; E87.70 Fluid overload, unspecified; Z68.32 Body mass index [BMI] 32.0-32.9, adult
CPT/HCPCS: 36415; 71020; 80048; 80076; 82550; 82553; 82947; 83735; 83880; 84484; 85025; 85027; 93005; 93308; 94640; 96374; 99285; J1650; J1815; J1940; J2270; Q4081

== ENCOUNTER 2017-01-02 20:15 | Inpatient (IN) | payer MEDICARE, OTHER ==
--- NOTE | ~2017-01-02 | HP ---
Unit #: [id number] #: [id number] Patient: BRYNN MOHR [id number] [address] [place], [place] [address] [id number] I MR#: [id number] NAME: BRYNN MOHR ROOM: 338 Age: 46 Sex: M Admission Date: 01/03/2017 : 1970 Attending Physician: Giovanna Delacruz M.D. Primary Care Physician: Mahin Martin M.D. HISTORY AND PHYSICAL CHIEF COMPLAINT Accelerated hypertension and fluid overload. HISTORY This 46-year-old male with IDDM, end stage renal failure, hypertension, CAD, is admitted for shortness of breath, headache and accelerated hypertension. Apparently there are some compliance issues with this patient, and apparently his left arm dialysis fistula was not working correctly. He was admitted to [facility] as he had missed dialysis. He was dialyzed and Monday. It is early Monday morning, and the patient presented to this emergency department late last evening for shortness of breath and was found to have mild fluid overload. Also, accelerated hypertension and headache. He was treated with 10 mg of IV labetalol, 1 mg of IV Ativan, aspirin and nitro paste. He does complain of intermittent chest discomfort, and his troponin is indeterminate, but no active ischemia is seen on his EKG. A call was made to nephrology who will be seeing the patient for dialysis in the morning. PAST MEDICAL HISTORY 1. Uremic pericardial effusion. 2. End stage renal failure, on hemodialysis, followed by Dr. De Santiago. Apparently there are some compliance issues. The patient has a working left arm AV fistula or shunt. 3. CAD, status post PCI and stent 02/2016. 4. IDDM with neuropathy, retinopathy, and end stage renal failure. 5. Possible previous TIA. 6. Hyperlipidemia. 7. Depression. 8. Obstructive sleep apnea. 9. Seizures. 10. Hyperparathyroidism. 11. Hypertension. 12. Anemia secondary to chronic kidney disease. 13. Obesity. 14. Cholecystectomy. 15. Cataract extraction. 16. Hernia repair. ALLERGIES Atarax, Phenergan, Flexeril, Benadryl. MEDICATIONS Unit #: [id number] #: [id number] Patient: BRYNN MOHR The patient brings in his medications, and tells me that he takes: 1. Humalog 3 units t.i.d. and what sounds to be 45 units of Lantus q. h.s. 2. PhosLo 667 mg t.i.d. 3. Cardizem 120 mg b.i.d. 4. Atarax 25 mg b.i.d. p.r.n. 5. Vitamin D3 2000 units daily. 6. Losartan 100 mg daily. 7. He was previously on Keppra. 8. Has multiple eyedrops for glaucoma. 9. Aspirin 81 mg daily. 10. Brilinta 90 mg b.i.d. 11. Omeprazole 40 mg daily. 12. P.r.n. nitroglycerin. FAMILY HISTORY Diabetes mellitus. SOCIAL HISTORY The patient lives with his girlfriend. He does not smoke, drink alcohol or use illicit drugs. He does have a previous history of cocaine and heroin use. REVIEW OF SYSTEMS Shortness of breath, headache, weakness in the legs, pain in the legs, pericardial effusion, renal failure, neuropathy, hypertension, sleep apnea, anemia, seizures, diabetes, above mentioned surgeries. All other systems were reviewed and are otherwise negative. PHYSICAL EXAMINATION GENERAL APPEARANCE: Somewhat obese 46-year-old male, currently in no acute distress. VITAL SIGNS: Temperature 98.4, pulse 109, respirations 21, initial blood pressure 195/87, current blood pressure is 180/104. O2 saturation 97% on 2 L of oxygen. HEENT: Eyes PERRLA. Extraocular muscles are intact. Pharynx is benign. NECK: Supple without adenopathy or thyromegaly. CHEST: A few crackles at the bases. CARDIAC: Normal S1 and S2 without definite murmur. ABDOMEN: Bowel sounds are present. Mild right upper quadrant tenderness. No rebound or guarding. No hepatosplenomegaly or masses. EXTREMITIES: With mild edema. Pedal pulses are diminished. No ulcers on the feet. NEUROLOGIC: The patient is awake, alert, oriented. Cranial nerves are intact. He has equal strength throughout. He does have asterixis on exam. DIAGNOSTIC STUDIES LABORATORY: Admission labs - hematocrit 32.3 which is improved. White blood count is 12.3, platelet count is 109. SMA-12 - BUN 129, creatinine 12, glucose 218, sodium 133, potassium 5.4, chloride 98, CO2 19, alkaline phos. 233, BNP is 1934. Coags normal. Troponin 0.1 and 0.14. IMAGING: Chest x-ray - mild cardiomegaly, mild fluid overload. Head CT - no acute disease. Unit #: [id number] #: [id number] Patient: BRYNN MOHR CARDIOVASCULAR: EKG - sinus tachycardia, rate 110. ASSESSMENT 1. Fluid overload. 2. Coronary artery disease, status post percutaneous coronary intervention and stent with episodes of chest discomfort and indeterminate troponin. 3. Accelerated hypertension. 4. End stage renal failure, on hemodialysis. 5. History of uremic pericardial effusion. 6. Insulin dependent diabetes mellitus with multiple complications including neuropathy, renal failure, retinopathy. 7. Glaucoma. 8. Obstructive sleep apnea. PLANS 1. Blood pressure control. 2. Kayexalate. 3. Continue cardiac medicines. Will add nitro paste. 4. Obtain recent records from [facility]. 5. SCDs for DVT prophylaxis. 6. Nephrology consultation. 7. Repeat labs in the morning. 8. Cardiology consultation. Dictated by Kwadwo Pedersen/dequan TD: 01/03/2017 05:47 JOB #: [id number] HISTORY AND PHYSICAL Page 1 of 1 X Giovanna Delacruz MD HISTORY AND PHYSICAL
--- NOTE | ~2017-01-02 | EKG ---
PATIENT: BRYNN MOHR UNIT #: [id number] Ventricular Rate: 100 BPM Atrial Rate: 100 BPM P-R Interval: 160 ms QRS Duration: 88 ms Q-T Interval: 346 ms QTC Calculation(Bezet): 446 ms P [place]: 43 degrees Calculated R [place]: 49 degrees Calculated T [place]: 61 degrees Diagnosis Line: Normal sinus rhythm Diagnosis Line: Normal ECG Diagnosis Line: Diagnosis Line: Confirmed by ISRAEL BOLAÑOS MD ([id number]) on Diagnosis Line: 01/04/2017 10:52:58 AM INTERPRETING MD: OSM
--- NOTE | ~2017-01-02 | CO ---
Unit #: [id number] #: [id number] Patient: BRYNN MOHR [id number] [address] [place], [place] [address] [id number] I MR#: [id number] NAME: BRYNN MOHR ROOM: 338 Age: 46 Sex: M Admission Date: 01/03/2017 : 1970 Attending Physician: Dominique Quinones M.D. Primary Care Physician: Mahin Martin M.D. Consultation Date: 01/03/2017 CONSULTATION REPORT REASON FOR CONSULTATION Chest pain, chest discomfort, poorly controlled hypertension, and mildly elevated troponin. HISTORY OF PRESENT ILLNESS This is a 46-year-old male, who is well known to Dr. Leonardo, and had angioplasty and stents placed in 02/2016, there was an EF of 55% to 60%. He has end-stage renal disease, on hemodialysis. Has diabetes mellitus, hypertension, hyperlipidemia, anemia, seizure disorder, obstructive sleep apnea, who came to the emergency room with increased shortness of breath, headache, and some burning in his midsternal chest area. The patient reports he was at [facility] last week for couple of days, he had some problems with his AV fistula, it appears that may have declotted AV fistula. He had dialysis last and Monday. He said he did fine over the weekend. He was scheduled for hemodialysis on Monday, which is one of his regular dialysis days, but he states that he got breathing hard yesterday, he felt like he may have needed dialysis. He started having a headache along with shortness of breath and felt like he has some increased lower extremity edema. He does have an occasional twinge of midsternal chest burning. He said it does not feel like the type of chest pain he had when he had his stents placed. He does admit to drinking a lot of oral fluids. The patient denies that the chest pain radiates up into his neck, bilateral jaws, shoulders, arms, or elbow. He denies any palpitations. No dizziness, presyncope, syncope. He denies any proximal nocturnal dyspnea or orthopnea. In the emergency room, the patient's blood pressure was 195/87, heart rate was 109, respirations 20, temperature is 98.4, O2 saturation was 97% on 2 L. His initial labs; his creatinine is 13, sodium 133, potassium 5.6. His BNP was 1934. His CK-MB was 9.3 and later 4.1, his troponin 0.14 and 0.23. His chest x-ray showed some mild fluid overload. His EKG shows sinus tachycardia with nothing acute. The patient was given some IV labetalol, IV Ativan, aspirin, and nitroglycerin paste. Cardiology consult to assist with evaluation and management. PAST MEDICAL HISTORY 1. Coronary artery disease in 02/2016 had staged PCI and stents to the proximal RCA, distal RCA, third marginal branch of circumflex, with plain old balloon angioplasty to the second marginal circumflex, in the mid LAD, first diagonal of the LAD. 2. In 06/2016, 2D echo, LVEF of 55% to 60% with mild mitral regurgitation Unit #: [id number] #: [id number] Patient: BRYNN MOHR and mild tricuspid regurgitation. 3. Hypertension. 4. Diabetes mellitus, type 2. 5. Hyperlipidemia. 6. End-stage renal disease, on hemodialysis. 7. Chronic hyponatremia. 8. Anemia secondary to chronic kidney disease. 9. Hyperthyroidism. 10. Statin myopathy. 11. Seizure disorder. 12. Obstructive sleep apnea. 13. Chronic pain syndrome. 14. Glaucoma. 15. Nonsmoker. 16. Previous history of cocaine and heroin abuse. PAST SURGICAL HISTORY 1. Cataract surgery. 2. Appendectomy. 3. Cholecystectomy. HOME MEDICATIONS The patient is on Humalog 3 units t.i.d. and 45 units of Lantus at bedtime, PhosLo 667 mg t.i.d., Cardizem 120 mg p.o. b.i.d., Atarax 25 mg p.o. b.i.d., vitamin D3 2000 units p.o. daily, losartan 100 mg p.o. daily. The patient had previously been on Keppra, eyedrops for glaucoma, aspirin 81 mg p.o. daily, Brilinta 90 mg p.o. b.i.d., omeprazole 40 mg p.o. daily, p.r.n. Nitrostat. ALLERGIES Atarax, Phenergan, Flexeril, Benadryl. SOCIAL HISTORY The patient lives with his girlfriend. He has been a lifelong nonsmoker. No alcohol. He used to use cocaine and heroin, but has not in some time. FAMILY HISTORY Diabetes mellitus. REVIEW OF SYSTEMS See details in HPI. PHYSICAL EXAMINATION GENERAL: Mr. Charles is a 46-year-old male, in no acute respiratory distress. He is awake, alert, and answers questions appropriately. VITAL SIGNS: Blood pressure is 189/110, respirations 18, heart rate 97, temperature 98.7, and O2 saturations 97% on 2 L. NECK: Trachea midline. No thyromegaly or lymphadenopathy. Mild jugular venous distention. HEART: S1, S2. Regular rate and rhythm. Soft systolic murmur at left sternal border. LUNGS: Diminished with some fine rales in bases. ABDOMEN: Obese, soft, nontender. EXTREMITIES: Pedal pulses are palpable. 1+ pedal edema. DIAGNOSTIC STUDIES LABORATORY RESULTS: This morning, glucose is 172, BUN 119, creatinine 13, eGFR is 4.0, sodium 133, potassium 5.6, chloride 98, CO2 of 17, calcium is Unit #: [id number] #: [id number] Patient: MOHR,NEREIDA 8.4, total protein 7.9, albumin 4.1, bilirubin total 0.6, AST is 19, ALT 22, alkaline phosphatase is 233. BNP is 1934. WBC is 14.2, hemoglobin 10.4, hematocrit 31.6, and platelets is 101. Initial cardiac enzymes CK-MB is 9.3 with troponin 0.14. Initial CK-MB was 9.9 with troponin 0.10. Latest cardiac enzymes; CK total is 308, MB is 12.6, percentage of MB is 4.1, troponin 0.23. The patient's INR is 1.0. IMAGING STUDIES: Chest x-ray, preliminary report shows mild fluid overload. CARDIOVASCULAR STUDIES: EKG shows sinus tachycardia with ventricular rate 108 beats per minute, left atrial abnormality, poor R-wave progression. IMPRESSION 1. Dyspnea, fluid overload. 2. Acute kidney failure on hemodialysis. 3. Accelerated hypertension. 4. Mildly elevated troponin. 5. History of coronary artery disease, previous percutaneous coronary intervention and stents in 02/2016, see details in history of present illness. 6. Left ventricular ejection fraction of 55% to 60% on 2D echo in 06/2016. 7. Diabetes mellitus, type 2. 8. Hyperlipidemia. 9. Seizure disorder. 10. Chronic anemia. 11. Obstructive sleep apnea. 12. Nonsmoker. PLAN 1. There are plans for hemodialysis today, which would remove some of the fluid overload that is causing his symptoms. The patient's chest pain is somewhat atypical. He said it feels like a burning in the midsternal area, which is not there all the time. He states it does not feel like the chest discomfort he had before his stents. We will order another troponin and cardiac enzymes for later today and compare and see if they are trending downward. The patient's blood pressure is very elevated. We will order for him to get his Cardizem and nitroglycerin paste and also will add his beta-liliana that he had been on in the past. 2. Also, he has IV hydralazine and clonidine p.r.n. 3. Order the patient to continue on his dual antiplatelet therapy which is Brilinta and aspirin. Obtain a fasting lipid profile and evaluate. 4. On exam, there are no signs or symptoms of unstable angina or acute congestive heart failure. Obtain a fasting lipid profile and evaluate. 5. Further recommendations pending per Dr. Leonardo. Thank you very much for allowing us to assist in the care. Dictated by... Deanne HawkinsPMaicoRValdemar. for Austen Leonardo M.D. MALINA/stefanie TD: 01/04/2017 02:30 JOB #: [id number] Unit #: [id number] #: [id number] Patient: BRYNN MOHR ANGEL CONSULTATION REPORT Page 1 of 1 X Radha Kaiser APRN CONSULTATION REPORT
--- NOTE | ~2017-01-02 | DS ---
Unit #: [id number] #: [id number] Patient: BRYNN MOHR [id number] [address] [place], [place] [address] [id number] I MR#: [id number] NAME: BRYNN MOHR ROOM: 338 Age: 46 Sex: M Admission Date: 01/03/2017 : 1970 Discharge Date: Attending Physician: Dominique Quinones M.D. Primary Care Physician: Mahin Martin M.D. DISCHARGE SUMMARY DISCHARGE DIAGNOSES 1. Fluid overload from missing hemodialysis. 2. Hypertensive crisis, present on admission. 3. End-stage renal disease on hemodialysis. Patient recently had problems with his fistula, so he missed a few dialysis. 4. History of seizures. 5. Diabetes mellitus type 2, uncontrolled with hyperglycemia. 6. Elevated troponin, likely from end-stage renal disease. No acute coronary disease. Patient had stable angina. 7. Hypocalcemia. 8. Hypophosphatemia. 9. Uremic pericardial effusion. 10. History of coronary artery disease, status post percutaneous coronary intervention and stenting in February 2016. 11. Diabetes mellitus type 2 with neuropathy, retinopathy, and end-stage renal disease. 12. History of transient ischemic attack. 13. Hyperlipidemia. 14. Depression. 15. Obstructive sleep apnea. 16. Hyperparathyroidism. 17. Hypertension. 18. Anemia, secondary to chronic kidney disease, no active bleeding. 19. Obesity. CONSULTATIONS 1. Dr. Ortiz. 2. Dr. Guerrero. PROCEDURE None. DIAGNOSTIC STUDIES LABORATORY: Sodium 137, potassium 4.7, creatinine 8.6. AST 14, ALT 15, alkaline phosphatase 182, total bilirubin 0.8. WBC 9.6, hemoglobin 9.5, platelets 105,000. Troponin 0.24. BNP 1934. IMAGING: CT of the head: No acute changes. ALLERGIES Hydroxyzine, promethazine, cyclobenzaprine, diphenhydramine. DISCHARGE MEDICATIONS 1. Albuterol two puffs inhalation three times daily p.r.n. shortness of Unit #: [id number] #: [id number] Patient: BRYNN MOHR breath. 2. Prednisone acetate 1% eye drop four times daily. 3. Neurontin 100 p.o. b.i.d. 4. Keppra 500 p.o. b.i.d. 5. Rifampin 600 mg p.o. daily. 6. Cosopt one drop two times daily. 7. Cardizem CD 120 mg p.o. b.i.d. 8. Metoprolol 12.5 p.o. b.i.d. 9. Xalatan eye drops at bedtime. 10. Cozaar 100 daily. 11. Levemir 10 units in the morning and 10 units at bedtime. 12. Brimonidine eye drops b.i.d. 13. Colchicine 0.3 daily. 14. Aspirin 81 daily. 15. Lortab 5 mg three times daily p.r.n. pain. 16. Brilinta 90 mg p.o. b.i.d. 17. Omeprazole 40 daily. 18. Phos-Lo 667 mg p.o. three times daily with meals. 19. Nitroglycerin 0.4 sublingual p.r.n. chest pain. 20. Vitamin D at 2000 units p.o. daily. HOSPITALIZATION COURSE This is a 46 year old admitted because of uncontrolled blood pressure and fluid overload. Fluid overload from missing hemodialysis: Patient received dialysis during the hospitalization course. Dr. Guerrero followed him. He continued taking the fluid out. He will have dialysis today and later being discharged. Hypertensive crisis present on admission: Likely from missing dialysis. Patient's medications have been continued. Hemodialysis has been continued. Cardizem and Cozaar have been started. I gave prescription. Currently, blood pressure is 145/88. Nosebleed: Most likely secondary to uncontrolled hypertension. Currently stopped. Will monitor on aspirin and Brilinta. End-stage renal disease: Currently having dialysis. Continue with that and follow with Dr. Guerrero as an outpatient. History of pericardial effusion: Stable. Cardiology was following. No intervention per them. Elevated troponins: Patient had generalized body pains including chest pain, likely atypical. Patient does have coronary artery disease history but no acute angina. Patient has stable angina. No acute intervention per cardiology. Diabetes mellitus type 2 with neuropathy, nephropathy, retinopathy: Patient has hyperglycemia also. I adjusted his Levemir. Continue that at home. Patient will be discharged after dialysis and after seen by Dr. Guerrero. Discussed with jonny Webber to discharge the patient home. Follow with family physician in one week time. Unit #: [id number] #: [id number] Patient: BRYNN MOHR Discharge time taken is 31 minutes. High risk of re-admission if continued noncompliant with his hemodialysis. Dictated by... wKadwo Villaseñor TD: 01/04/2017 12:01 JOB #: [id number] DISCHARGE SUMMARY Page 1 of 1 X Dominique Quinones MD X DISCHARGE SUMMARY
--- NOTE | ~2017-01-02 | EKG ---
PATIENT: BRYNN MOHR UNIT #: [id number] Ventricular Rate: 108 BPM Atrial Rate: 108 BPM P-R Interval: 164 ms QRS Duration: 86 ms Q-T Interval: 332 ms QTC Calculation(Bezet): 444 ms P [place]: 51 degrees Calculated R [place]: 65 degrees Calculated T [place]: 65 degrees Diagnosis Line: Sinus tachycardia Diagnosis Line: Possible Left atrial enlargement Diagnosis Line: Borderline ECG Diagnosis Line: No previous ECGs available Diagnosis Line: Confirmed by ISRAEL BOLAÑOS MD ([id number]) on Diagnosis Line: 01/04/2017 10:45:25 AM INTERPRETING MD: SOM
--- NOTE | ~2017-01-02 | CT71 ---
[facility] A Service of [facility] RADIOLOGY TEXT RESULTS PATIENT: BRYNN MOHR LOCATION: [facility] 338- : [birth year] UNIT #: [id number] AGE: [address]: Dominique Quinones MD SEX: M ORDER DR: [id number] [place] [address] [facility]. [place], [place] [address] [id number] I MR#: [id number] Acc #: [id number] NAME: BRYNN MOHR : 1970 SEX: M STUDY DATE/TIME: 01/02/2017 21:53 UNIT: [address] ROOM: [facility] STUDY DESCRIPTION: CT Head Wo Contrast Attending Physician: Dominique Quinones M.D. Ordering Physician: Rob Coronado M.D. Primary Care Physician: Mahin Martin M.D. MEDICAL IMAGING REPORT This report is preliminary unless electronic signature is present EXAM CT head. INDICATIONS Weakness and shortness of air for [address] head dated 09/18/2016. TECHNIQUE Axial noncontrast images were obtained from the skull base to the vertex. This CT exam was performed with one or more of the following radiation dose reduction techniques: automatic exposure control, adjustment of mA and/or kV according to patient size, and iterative reconstruction. FINDINGS Ventricular size and configuration are normal. There is no evidence of acute infarct or hemorrhage. There are no extra-axial fluid collections. No mass lesion or mass effect is seen. There are no skull fractures. IMPRESSION Normal noncontrast head CT. Dictated by... Armando Segundo M.D. THIS IS AN ELECTRONICALLY VERIFIED REPORT Armando Segundo M.D. at 01/03/2017 4:55 PM EDDIE/shayy TD: 01/03/2017 11:22 JOB #: [id number] [facility] A Service [facility] RADIOLOGY TEXT RESULTS PATIENT: BRYNN OMHR LOCATION: [facility] 338-01 : [birth year] UNIT #: [id number] AGE: [address]: Dominique Quinones MD SEX: M ORDER DR: MEDICAL IMAGING REPORT Page 1 of 1 COPY
--- NOTE | ~2017-01-02 | CR72 ---
[facility] A Service of [facility] RADIOLOGY TEXT RESULTS PATIENT: BRYNN MOHR LOCATION: [facility] 338-01 : [birth year] UNIT #: [id number] AGE: [address]: Dominique Quinones MD SEX: M ORDER DR: [id number] [facility] [address] [facility]. [place], [place] [address] [id number] I MR#: [id number] Acc #: [id number] NAME: BRYNN MOHR : 1970 SEX: M STUDY DATE/TIME: 01/02/2017 21:33 UNIT: [address] ROOM: [facility] STUDY DESCRIPTION: CR Chest Single View Portable Attending Physician: Dominique Quinones M.D. Ordering Physician: Rob Coronado M.D. Primary Care Physician: Mahin Matrin M.D. MEDICAL IMAGING REPORT This report is preliminary unless electronic signature is present EXAM Single view of the chest, 01/02/2017 COMPARISON Chest 2 views, 10/03/2016 HISTORY Shortness of air and chest pain today. FINDINGS Frontal view of the chest was obtained. There is mild right-sided pleural effusion. Bronchovascular markings are noted slightly prominent, suspicious for mild congestion in the appropriate clinical setting. There is borderline size to mild cardiomegaly. Stable in the last three months. No obvious pneumothorax. Dictated by... Zaki Delgado M.D. THIS IS AN ELECTRONICALLY VERIFIED REPORT Zaki Delgado M.D. at 01/03/2017 9:02 PM CPR/vera TD: 01/03/2017 11:06 JOB #: [id number] MEDICAL IMAGING REPORT Page 1 of 1 COPY
--- NOTE | ~2017-01-02 | EKG ---
PATIENT: BRYNN MOHR UNIT #: [id number] Ventricular Rate: 84 BPM Atrial Rate: 84 BPM P-R Interval: 168 ms QRS Duration: 88 ms Q-T Interval: 380 ms QTC Calculation(Bezet): 449 ms P [place]: 41 degrees Calculated R [place]: 35 degrees Calculated T [place]: 93 degrees Diagnosis Line: Normal sinus rhythm Diagnosis Line: Normal ECG Diagnosis Line: Diagnosis Line: Confirmed by ISRAEL BOLAÑOS MD ([id number]) on Diagnosis Line: 01/04/2017 11:08:15 AM INTERPRETING IRENE KEARNS
[~2017-01-02 20:15] MED LIST changes: +HYDROCODONE-A1 UDTA3 PO; +NEURONTIN100 MG PO
[2017-01-02 21:48] LABS: BASOPHIL# 0.1 X10e3 (0-0.3); BASOPHIL% 0.6 % (0-2.5); EOSINOPHIL# 0.5 X10e3 (0-0.7); HEMATOCRIT 32.3 % (38.0-50.0); HEMOGLOBIN 10.7 gm/dL (13.0-16.0); LYMPHOCYTE# 1.3 X10e3 (1.0-3.5); LYMPHOCYTE% 10.9 % (17.0-45.0); MEAN CELL VOLUME 79.3 FL (83-96); MEAN CORPUSCULAR HEMOGLOBIN 26.2 PG (28-34); MEAN PLATELET VOLUME 9.9 FL (6.5-11.5); MONOCYTE# 0.8 X10e3 (0-1.0); MONOCYTE% 6.2 % (3.0-12.0); NEUTROPHIL# 9.6 X10e3 (1.5-7.1); NEUTROPHIL% 78.3 % (40-75); PLATELET COUNT 109 X10e3 (140-420); RED BLOOD COUNT 4.07 X10e (3.90-5.60); WHITE BLOOD COUNT 12.3 X10e3 (4.0-10.5)
[2017-01-02 21:49] LABS: DIFF IND NO
[2017-01-02 21:56] LABS: PROTHROMBIN TIME (PATIENT) 11.3 SECONDS (10.0-11.7)
[2017-01-02 22:26] LABS: ALBUMIN SERUM 4.1 g/dL (3.5-5.0); BILIRUBIN, DIRECT 0.1 mg/dL (0.0-0.2); BILIRUBIN,INDIRECT 0.5 mg/dL (0.0-0.9); BILIRUBIN,TOTAL 0.6 mg/dL (0.2-2.0); BUN/CREATININE RATIO 10.75; CALCIUM SERUM 8.7 mg/dL (8.4-10.2); GLOM FILT RATE Estimated 4.4 mL/min (>60); POTASSIUM 5.4 mmol/L (3.5-5.1); PROTEIN TOTAL SERUM 7.9 g/dL (6.0-8.3)
[2017-01-02 23:11] LABS: POC - CKMB 9.9 ng/mL (0.0-7.9); POC - TROPONIN 0.1 ng/mL (<=0.05)
[2017-01-02 23:32] LABS: POC - CKMB 9.3 ng/mL (0.0-7.9); POC - TROPONIN 0.14 ng/mL (<=0.05)
[2017-01-03 06:15] LABS: BASOPHIL# 0.1 X10e3 (0-0.3); BASOPHIL% 0.6 % (0-2.5); EOSINOPHIL# 0.3 X10e3 (0-0.7); EOSINOPHIL% 1.8 % (0.0-7.0); HEMATOCRIT 31.6 % (38.0-50.0); HEMOGLOBIN 10.4 gm/dL (13.0-16.0); LYMPHOCYTE# 1.1 X10e3 (1.0-3.5); LYMPHOCYTE% 8.1 % (17.0-45.0); MEAN CELL VOLUME 80.1 FL (83-96); MEAN CORPUSCULAR HEMOGLOBIN 26.5 PG (28-34); MEAN CORPUSCULAR HGB CONC 33.1 g/dL (30-36); MEAN PLATELET VOLUME 9.5 FL (6.5-11.5); MONOCYTE# 0.8 X10e3 (0-1.0); NEUTROPHIL# 11.8 X10e3 (1.5-7.1); NEUTROPHIL% 83.5 % (40-75); PLATELET COUNT 101 X10e3 (140-420); RED BLOOD COUNT 3.94 X10e (3.90-5.60); RED CELL DISTRIBUTION WIDTH 21.9 % (11.0-15.5); WHITE BLOOD COUNT 14.2 X10e3 (4.0-10.5)
[2017-01-03 06:26] LABS: DIFF IND NO
[2017-01-03 07:03] LABS: CALCIUM SERUM 8.4 mg/dL (8.4-10.2)
[2017-01-03 07:12] LABS: BUN/CREATININE RATIO 9.15
[2017-01-03 07:13] LABS: POTASSIUM 5.6 mmol/L (3.5-5.1)
[2017-01-03 07:31] LABS: %MB 4.1 % (0.0-4.0); MB 12.6 ng/ml
[2017-01-03 09:53] LABS: CHOLESTEROL 97 mg/dL (0-200); HDL CHOLESTEROL 36 mg/dL (29-75); LDL CHOLESTEROL 37 mg/dL (-130); LDL/HDL RATIO 1 RATIO (0-4); TRIGLYCERIDES 120 mg/dL (10-160)
[2017-01-03 12:35] LABS: MB 12.2 ng/ml
[2017-01-04 08:58] LABS: HEMATOCRIT 28.4 % (38.0-50.0); HEMOGLOBIN 9.5 gm/dL (13.0-16.0); MEAN CELL VOLUME 79.9 FL (83-96); MEAN CORPUSCULAR HEMOGLOBIN 26.8 PG (28-34); MEAN CORPUSCULAR HGB CONC 33.6 g/dL (30-36); MEAN PLATELET VOLUME 9.2 FL (6.5-11.5); RED BLOOD COUNT 3.55 X10e (3.90-5.60); RED CELL DISTRIBUTION WIDTH 22.3 % (11.0-15.5); WHITE BLOOD COUNT 9.6 X10e3 (4.0-10.5)
[2017-01-04 09:31] LABS: ALBUMIN SERUM 3.5 g/dL (3.5-5.0); BILIRUBIN,TOTAL 0.8 mg/dL (0.2-2.0); BUN/CREATININE RATIO 8.72; CREATININE SERUM 8.6 mg/dL (0.6-1.4); GLOM FILT RATE Estimated 6.6 mL/min (>60); POTASSIUM 4.7 mmol/L (3.5-5.1); PROTEIN TOTAL SERUM 7.4 g/dL (6.0-8.3)
[2017-01-04] MEDS ORDERED: COZAAR100 MG PO (11:48)
[2017-01-04] MEDS ORDERED: CARDIZEM CD120 M1 PO (11:49)
[2017-01-04] MEDS ORDERED: PHOSLO667 MG PO (11:52)
== END 2017-01-04 16:37 | disposition home or self-care (01) | DRG 640 ==
LOC: CED 20:15 → CEDOF 01-03 00:11 → CED 01-03 00:11 → C3A PCU 01-03 00:11 → CEDOF 01-03 00:40 → C3A PCU 01-03 00:40 → CEDOF 01-03 04:14 → C3A PCU 01-03 07:47
PROVIDERS: Emergency Medicine; Internal Medicine
PROC: 5A1D00Z (ICD-10-PCS; principal; 2017-01-03)
DX: E87.70 Fluid overload, unspecified (principal); N18.6 End stage renal disease; I12.0 Hypertensive chronic kidney disease with stage 5 chronic kidney disease or end stage renal disease; I31.3 Pericardial effusion (noninflammatory); E11.21 Type 2 diabetes mellitus with diabetic nephropathy; I16.9 Hypertensive crisis, unspecified; Z91.15 Patient's noncompliance with renal dialysis; Z99.2 Dependence on renal dialysis; G40.909 Epilepsy, unspecified, not intractable, without status epilepticus; E11.65 Type 2 diabetes mellitus with hyperglycemia; E83.51 Hypocalcemia; E83.39 Other disorders of phosphorus metabolism; E11.22 Type 2 diabetes mellitus with diabetic chronic kidney disease; E11.40 Type 2 diabetes mellitus with diabetic neuropathy, unspecified; E11.319 Type 2 diabetes mellitus with unspecified diabetic retinopathy without macular edema; Z86.73 Personal history of transient ischemic attack (TIA), and cerebral infarction without residual deficits; E78.5 Hyperlipidemia, unspecified; D63.1 Anemia in chronic kidney disease; H40.9 Unspecified glaucoma; G89.4 Chronic pain syndrome; Z98.49 Cataract extraction status, unspecified eye; Z90.49 Acquired absence of other specified parts of digestive tract; Z79.82 Long term (current) use of aspirin; Z79.4 Long term (current) use of insulin; Z83.3 Family history of diabetes mellitus; E66.9 Obesity, unspecified; R04.0 Epistaxis
CPT/HCPCS: 36415; 70450; 71010; 80048; 80053; 80061; 80076; 82550; 82553; 82947; 83880; 84484; 85025; 85027; 85610; 85730; 93005; 94760; 99285; J0360; J1644; J1815; J2060

== ENCOUNTER 2017-01-05 09:01 | Emergency (ER) | payer MEDICARE, OTHER ==
--- NOTE | ~2017-01-05 | EKG ---
PATIENT: BRYNN MOHR UNIT #: [id number] Ventricular Rate: 103 BPM Atrial Rate: 103 BPM P-R Interval: 152 ms QRS Duration: 86 ms Q-T Interval: 360 ms QTC Calculation(Bezet): 471 ms P [place]: 39 degrees Calculated R [place]: 31 degrees Calculated T [place]: 41 degrees Diagnosis Line: Sinus tachycardia Diagnosis Line: Otherwise normal ECG Diagnosis Line: Diagnosis Line: Confirmed by ELVIN NAPIER MD ([id number]) on 01/05/2017 Diagnosis Line: 8:38:41 PM INTERPRETING MD: QUYEN PARTIDA
--- NOTE | ~2017-01-05 | CR72 ---
[facility] A Service of [facility] RADIOLOGY TEXT RESULTS PATIENT: BRYNN MOHR LOCATION: [facility] : [birth year] UNIT #: [id number] AGE: [address]: Sameer Lacey MD SEX: M ORDER DR: [id number] [facility] [address] [place], [place] [address] [id number] MR#: [id number] Acc #: [id number] NAME: BRYNN MOHR : 1970 SEX: M STUDY DATE/TIME: 01/05/2017 9:56 UNIT: [facility] ROOM: STUDY DESCRIPTION: CR Chest Single View Portable Attending Physician: Massimo Lacey M.D. Ordering Physician: Jesse Rosas M.D. Primary Care Physician: Mahin Martin M.D. MEDICAL IMAGING REPORT This report is preliminary unless electronic signature is present EXAM Portable chest. HISTORY Chest pain and shortness of breath beginning last night. TECHNIQUE Single view of the chest was obtained and compared with 01/02/2017. FINDINGS Cardiomegaly is unchanged. Pulmonary vascular markings are mildly prominent but unchanged from the previous exam. The right costophrenic angle is blunted and this is not significantly changed. No new infiltrates or enlarging effusions are seen. IMPRESSION Mild pulmonary vascular congestion with interstitial edema and a small right pleural effusion. This is not significantly changed from the previous exam. STAT * RESULT Dictated by... John Gomes M.D. THIS IS AN ELECTRONICALLY VERIFIED REPORT Jhon Gomes M.D. at 01/05/2017 3:43 PM RLF/carolina TD: 01/05/2017 10:44 JOB #: [id number] [facility] A Service of [facility] RADIOLOGY TEXT RESULTS PATIENT: BRYNN MOHR [id number] : [birth year] UNIT #: [id number] AGE: [address]: Sameer Lacey MD SEX: M ORDER DR: MEDICAL IMAGING REPORT Page 1 of 1 COPY
[2017-01-05 09:50] LABS: BASOPHIL# 0.1 X10e3 (0-0.3); BASOPHIL% 1.1 % (0-2.5); EOSINOPHIL# 0.6 X10e3 (0-0.7); EOSINOPHIL% 5.9 % (0.0-7.0); HEMOGLOBIN 9.6 gm/dL (13.0-16.0); LYMPHOCYTE# 1.6 X10e3 (1.0-3.5); LYMPHOCYTE% 15.1 % (17.0-45.0); MEAN CELL VOLUME 80.3 FL (83-96); MEAN CORPUSCULAR HEMOGLOBIN 26.7 PG (28-34); MEAN CORPUSCULAR HGB CONC 33.3 g/dL (30-36); MEAN PLATELET VOLUME 9.5 FL (6.5-11.5); MONOCYTE% 9.7 % (3.0-12.0); NEUTROPHIL% 68.2 % (40-75); PLATELET COUNT 112 X10e3 (140-420); RED BLOOD COUNT 3.61 X10e (3.90-5.60); WHITE BLOOD COUNT 10.3 X10e3 (4.0-10.5)
[2017-01-05 09:53] LABS: DIFF IND NO
[2017-01-05 10:06] LABS: PARTIAL THROMBOPLASTIN TIME 30.1 SECONDS (23.5-31.3); PROTHROMBIN TIME (PATIENT) 10.9 SECONDS (10.0-11.7)
[2017-01-05 10:23] LABS: POC - CKMB 7.9 ng/mL (0.0-7.9); POC - TROPONIN 0.08 ng/mL (<=0.05)
[2017-01-05 11:12] LABS: GLOM FILT RATE Estimated 4.9 mL/min (>60); POTASSIUM 5.1 mmol/L (3.5-5.1)
[2017-01-05 11:33] LABS: POC - CKMB 6.3 ng/mL (0.0-7.9); POC - TROPONIN 0.07 ng/mL (<=0.05)
== END 2017-01-05 12:18 | disposition home or self-care (01) ==
LOC: CED 09:01
PROVIDERS: Emergency Medicine
DX: R07.89 Other chest pain (principal); I50.9 Heart failure, unspecified; E11.22 Type 2 diabetes mellitus with diabetic chronic kidney disease; N18.6 End stage renal disease; Z98.890 Other specified postprocedural states
CPT/HCPCS: 36415; 71010; 80048; 82553; 84484; 85025; 85610; 85730; 93005; 99285

== ENCOUNTER 2017-02-28 12:07 | Inpatient (IN) | payer MEDICARE, OTHER ==
[~2017-02-28] VITALS: Ht 162.6 cm; Wt 83.2 kg
--- NOTE | ~2017-02-28 | CO ---
Unit #: [id number] #: [id number] Patient: BRYNN MOHR [id number] [address] [place], [place] [address] [id number] I MR#: [id number] NAME: BRYNN MOHR ROOM: 547 Age: 47 Sex: M Admission Date: 02/28/2017 : 1970 Attending Physician: Juventino Carreno M.D. Primary Care Physician: Mahin Martin M.D. Consultation Date: 02/28/2017 CONSULTATION REPORT REASON FOR CONSULTATION Dialysis needs. HISTORY OF PRESENT ILLNESS Mr. Garvey is a 47-year-old male, who was admitted from the dialysis unit due to fevers and chills. He was told that he had an infection and needed to come to the emergency room. The patient was noted to have a fever here in the emergency room and has been started on sepsis protocol; however, his blood pressures have been okay. The patient has already received vancomycin and Zosyn and cultures have been done. The patient tells me that he has had been having issues with fevers and chills for about 3 weeks. His only complaint other than the chills is some left-sided neck and ear pain. He denies any chest pain or shortness of breath. Again, he says he got about an hour and a half of his dialysis treatment today. He denies any swelling. He denies any sores or ulcers on his access arm. PAST MEDICAL HISTORY Significant for end-stage renal disease, hypertension, diabetes, noncompliance, pericardial effusion, coronary artery disease and stenting, TIA, hyperlipidemia, depression, obstructive sleep apnea, seizure disorder, secondary hyperparathyroidism, anemia of chronic disease, and obesity. PAST SURGICAL HISTORY He has had an appendectomy, cholecystectomy, and coronary stenting. MEDICATIONS His home medications are as follows: Lantus insulin as directed, Brilinta 90 mg b.i.d., brimonidine eye drops b.i.d., latanoprost eye drops at bedtime, aspirin daily, Lipitor 20 mg a day, gabapentin 300 mg at bedtime, Cozaar 50 mg a day, omeprazole 40 mg daily, Lopressor 50 mg a day, hydroxyzine 25 mg b.i.d., diltiazem 120 mg a day, Cosopt eye drops b.i.d. ALLERGIES He has quoted allergies to Atarax, Phenergan, Flexeril, and Benadryl. FAMILY HISTORY Significant for diabetes. SOCIAL HISTORY He lives with a girlfriend. 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 Unit #: [id number] #: [id number] Patient: BRYNN MOHR REVIEW OF SYSTEMS A complete 12-point review of systems was attempted with the above findings. In addition, again he does have documented fevers and chills here in the emergency room. He denies any headache or visual disturbances. No neck stiffness. No nosebleed. No sore throat per Se, but his neck is sore on the left side. No chest pain or palpitations. No cough or hemoptysis. No nausea, vomiting, or diarrhea. No dysuria. No hematuria. No rashes or itching. No flank pain. No bleeding issues. He is unaware of any weight changes. Unless otherwise indicated, the review of systems was negative. PHYSICAL EXAMINATION VITAL SIGNS: T-max here in the emergency room 102.5, pulse 93, respiratory rate 23, blood pressure 168/74. GENERAL: This is a 47-year-old male, lying in bed with chills, but in no acute distress. HEENT: Head is atraumatic and normocephalic. Eyes show pale conjunctivae with no scleral icterus. No nasal drainage or nosebleed. Oropharynx is dry. NECK: Shows no rigidity. HEART: Heart is currently tachycardic, but regular with no murmur or rub appreciated. LUNGS: Lungs are without wheezing or rhonchi. Breathing is nonlabored. ABDOMEN: Soft and nontender. Bowel sounds are present. EXTREMITIES: No lower extremity cyanosis or pitting edema. SKIN: Dry with no rashes. VASCULAR: Left arm fistula in place with good thrill. No scabs or sores on the fistula site. NEUROLOGIC: Cranial nerves appear grossly intact with no gross motor deficits. MUSCULOSKELETAL: No joint effusions identified. DIAGNOSTIC STUDIES LABORATORY RESULTS: Lactic acid level was 0.7. Strep screen was positive. Chemistry from 12:52 this afternoon showed a sodium of 135, potassium 4.7, chloride 93, bicarb 27, glucose 162, BUN 63, creatinine of 9. CBC on admission white count 24.6, hemoglobin 9.8, and platelet count 186 with a left shift. ASSESSMENT AND PLAN 1. End-stage renal disease. The patient only received about an hour and a half of dialysis today. His chest x-ray per ER workup showed no acute disease and he does not have any signs of volume excess on his exam. His electrolytes are also okay, so we will pursue the rest of his dialysis tomorrow when he hopefully feels better. 2. Fever. The patient did have a positive strep screen and has been started on vancomycin and Zosyn with cultures ordered. Certainly with his chills, bacteremia is a consideration. He is on sepsis protocol, but I will stop his IV fluids due to his dialysis status and the fact that his blood pressure is okay. 3. Hypertension. Home medications have been renewed, but we will need to watch with his infection. 4. Diabetes with a history of poor control in the past with hemoglobin A1cs as high as 16 here at [facility]. 5. Coronary artery disease with previous stenting. 6. History of pericardial effusion. The patient denies any chest pain. 7. History of seizure disorder. Unit #: [id number] #: [id number] Patient: BRYNN MOHR 8. Obstructive sleep apnea. 9. History of noncompliance. I would like to thank Dr. Alva for this consultation and the opportunity to participate in evaluation and care of Mr. Garvey. Dictated by... Osiel Deleon Jr., M.D. JENELLE/stefanie TD: 02/28/2017 23:05 JOB #: [id number] CONSULTATION REPORT Page 1 of 1 X Osiel Deleon MD X CONSULTATION REPORT
--- NOTE | ~2017-02-28 | CR72 ---
[facility] A Service of [facility] RADIOLOGY TEXT RESULTS PATIENT: BRYNN MOHR LOCATION: C5 547-01 : [birth year] UNIT #: [id number] AGE: [address]: Juventino Carreno MD SEX: M ORDER DR: [id number] [facility] [address] [place], [place] [address] [id number] I MR#: [id number] Acc #: [id number] NAME: BRYNN MOHR : 1970 SEX: M STUDY DATE/TIME: 02/28/2017 13:13 UNIT: CEDOF ROOM: 40895 STUDY DESCRIPTION: CR Chest Single View Portable Attending Physician: Gricel Alva M.D. Ordering Physician: Nasir Patel M.D. Primary Care Physician: Mahin Martin M.D. MEDICAL IMAGING REPORT This report is preliminary unless electronic signature is present EXAM AP portable chest DATE: 02/28/2017 HISTORY Fever and chills for 2 weeks. Asthma, congestive heart failure, dialysis, cardiac stent placements. COMPARISON AP portable chest 01/05/2017. FINDINGS There is stable mild cardiac enlargement. Mild central vascular congestive changes thought to be present without jayda interstitial or alveolar edema. There is minimal linear atelectasis in the right perihilar region and right infrahilar region. Features of interstitial edema described on previous examination appear resolved. IMPRESSION Mild cardiomegaly and central vascular congestion with linear atelectatic changes in the right hilum and right infrahilar region. No evidence of jayda pulmonary edema. Dictated by... Mindi Neil M.D. THIS IS AN ELECTRONICALLY VERIFIED REPORT Mindi Neil M.D. at 03/02/2017 8:49 AM LLH/erinn [facility] A Service of [facility] RADIOLOGY TEXT RESULTS PATIENT: BRYNN MOHR LOCATION: [facility] 547-01 : 66 UNIT #: [id number] AGE: [address]: Juventino Carreno MD SEX: M ORDER DR: TD: 02/28/2017 21:41 JOB #: [id number] MEDICAL IMAGING REPORT Page 1 of 1 COPY
--- NOTE | ~2017-02-28 | DS ---
Unit #: [id number] #: [id number] Patient: BRYNN MOHR [id number] [address] [place], [place] [address] [id number] I MR#: [id number] NAME: BRYNN MOHR ROOM: 54 Age: 47 Sex: M Admission Date: 02/28/2017 : 1970 Discharge Date: 03/03/2017 Attending Physician: Juventino Carreno M.D. Primary Care Physician: Mahin Martin M.D. DISCHARGE SUMMARY PRIMARY DIAGNOSIS Sepsis. SECONDARY DIAGNOSES 1. Streptococcus pharyngitis. 2. End-stage renal disease. 3. Diabetes mellitus type 2. 4. Hypoglycemia in hospital secondary to Levemir. 5. Coronary artery disease. 6. Obstructive sleep apnea. 7. History of seizures. 8. Hypertension. HOSPITAL COURSE Patient was admitted to the hospital with a positive strep screen, symptoms suggestive of Strep pharyngitis and vitals and lab findings that qualified the patient for sepsis criteria. He was started on Zosyn and vancomycin and, with how ill he appeared in the emergency room, we had expected some results to come positive on blood cultures; however, blood cultures were still negative on the day of discharge 03/03/2017. The patient's chest x-ray showed a small line of atelectasis which is not clinically felt to be pneumonia as patient did not have significant cough. He did not have any diarrhea to suggest infectious colitis; neither did he have any skin rashes to suggest cellulitis. His AV fistula site did not appear clinically infected. A urinalysis was ordered but was unable to be obtained due to the patient being oliguric from his ESRD. Patient clinically improved rapidly on the Zosyn and vancomycin with fevers being gone for 48 hours and white blood cell count trending down during his hospitalization and the symptoms going away. He is being discharged on an additional 10 days of low dose amoxicillin due to his suspected Streptococcal pharyngitis and ESRD. The patient did complain of issues with chronic diarrhea and difficulty swallowing while he was here in the hospital. He was seen and evaluated by GI with Dr. Reyes and received an EGD and colonoscopy. There were nonspecific plaques seen on the distal third of the esophagus and some gastritis noted. It was recommended to have his proton pump inhibitor increased to twice daily and the patient can follow up with Dr. Reyes in three to four weeks for results on the biopsies of the colon and the biopsies for the EGD. DISCHARGE DISPOSITION To home. Unit #: [id number] #: [id number] Patient: BRYNN MOHR DISCHARGE STATUS Stable. DISCHARGE ACTIVITY Ad celia. DISCHARGE DIET A dialysis diabetic diet. DISCHARHE FOLLOWUP 1. Follow up with his PCP in two to eight weeks. 2. Follow up with Dr. Reyes in three to four weeks. 3. Patient should follow up with his regular dialysis scheduled three times a week. DISCHARGE MEDICATIONS 1. Omeprazole 40 mg p.o. b.i.d. 2. Amoxicillin 250 mg p.o. t.i.d. for 10 days. The remainder of his home medications will remain the same includin. Gabapentin 300 mg p.o. q.h.s. 4. Hydroxyzine 25 mg p.o. b.i.d. 5. Cosopt eye drops one drop each eye b.i.d. 6. Diltiazem 24-hour tablet 120 mg p.o. daily. 7. Metoprolol tartrate 50 mg p.o. daily. 8. Latanoprost eye drops one drop each eye q.h.s. 9. Lipitor 20 mg p.o. daily. 10. Cozaar 50 mg p.o. daily. 11. Lantus 45 units subcu q.h.s. 12. Brimonidine eye drops one drop each eye b.i.d. 13. Aspirin 81 mg p.o. daily. 14. Brilinta 90 mg p.o. b.i.d. Dictated by... Juventino Carreno M.D. PIPE/luz maria TD: 03/05/2017 18:54 JOB #: [id number] DISCHARGE SUMMARY Page 1 of 1 X Juventino Carreno MD X DISCHARGE SUMMARY
--- NOTE | ~2017-02-28 | HP ---
Unit #: [id number] #: [id number] Patient: BRYNN MOHR [id number] [address] [address] [id number] I MR#: [id number] NAME: BRYNN MOHR ROOM: 99048 Age: 47 Sex: M Admission Date: 02/28/2017 : 1970 Attending Physician: Jonathan Alva M.D. Primary Care Physician: Mahin Martin M.D. HISTORY AND PHYSICAL CHIEF COMPLAINT Fevers and chills. HISTORY OF PRESENT ILLNESS The patient is a 47-year-old male with a history of end-stage renal failure, on hemodialysis, hypertension, and coronary artery disease, who presented to the emergency room with fevers and chills. The patient stated that patient has been having fevers and chills for the last two weeks and was seen at dialysis today. The patient was having fevers associated with chills, and the dialysis was stopped after an hour of dialysis. Patient was sent to the emergency room for possible infection. Patient is positive for strep. He also complains of generalized body pain. The patient is being admitted for the above reasons. PAST MEDICAL HISTORY 1. Uremic pericardial effusion. 2. End-stage renal disease, on hemodialysis. 3. Coronary artery disease, status post stent. 4. Insulin-dependent diabetes mellitus. 5. Possible previous TIA. 6. Hyperlipidemia. 7. Depression. 8. Obstructive sleep apnea. 9. Seizures. 10. Hyperparathyroidism. 11. Hypertension. 12. Anemia secondary to chronic kidney disease. PAST SURGICAL HISTORY 1. Cholecystectomy. 2. Cataract extraction. 3. Hernia repair. ALLERGIES Atarax, Phenergan, Flexeril, Benadryl. HOME MEDICATIONS 1. Humalog. 2. PhosLo. 3. Cardizem. 4. Atarax. 5. Vitamin. 6. Losartan. 7. Aspirin. Unit #: [id number] #: [id number] Patient: BRYNN MOHR 8. Brilinta. 9. Omeprazole. 10. Nitroglycerin. FAMILY HISTORY Diabetes. SOCIAL HISTORY Patient lives with his girlfriend. He does not smoke, drink alcohol, or any illicit drug abuse. He does have a previous history of cocaine and heroin use. REVIEW OF SYSTEMS Positive for fevers and chills, positive for sore throat, and positive for generalized body pain. All other systems have been reviewed and are negative except as mentioned. PHYSICAL EXAMINATION GENERAL: Patient is lying in bed not in acute distress. VITAL SIGNS: Temperature is 102.5, pulse 95, respiratory rate 13, blood pressure 175/75, and saturating 93% on room air. HEENT: Head atraumatic, normocephalic. Pupils equal, round, and reactive to light and accommodation. Extraocular movements are intact. Dry mucous membranes. NECK: Supple. LUNGS: Decreased air entry at the bases. HEART: Regular rate and rhythm. ABDOMEN: Soft. Positive bowel sounds. EXTREMITIES: Patient has a fistula in the left upper extremity with no drainage. Positive for thrill. NEUROLOGIC: Alert, awake, and oriented. No gross focal motor deficit. DIAGNOSTIC STUDIES LABORATORY: WBC 24.6, hemoglobin 9.8, hematocrit 29.2, and platelets 186,000. Sugar is 159. Lactic acid 0.9. Sodium 135, potassium 4.7, chloride 93, glucose 162, BUN 63, creatinine 9, AST 30, and ALT 14. Strep throat screen is positive. IMAGING: Chest x-ray shows cardiomegaly with pulmonary vascular congestion and no acute pulmonary edema. ASSESSMENT 1. Sepsis probably from streptococcus. 2. Strep throat infection. 3. End-stage renal disease, on hemodialysis. PLAN Admit the patient to inpatient. Continue IV antibiotics with vancomycin and Zosyn. Check blood cultures from the dialysis access and the peripheral to rule out dialysis catheter infection. Follow with throat cultures. Patient will have a Nephrology consult for the end-stage renal disease, on hemodialysis. Continue with sepsis protocol, and further recommendations will follow. Dictated by Kwadwo Rivera/sonia Unit #: [id number] #: [id number] Patient: BRYNN MOHR TD: 02/28/2017 18:57 JOB #: [id number] HISTORY AND PHYSICAL Page 1 of 1 X JONATHAN ALVA MD HISTORY AND PHYSICAL
--- NOTE | ~2017-02-28 | OR ---
Unit #: [id number] #: [id number] Patient: BRYNN MOHR [id number] [address] [place], [place] [address] [id number] I MR#: [id number] NAME: BRYNN MOHR ROOM: 547 Date of Procedure: 03/03/2017 Admission Date: 02/28/2017 Surgeon: Ortega Reyes M.D. : 1970 Attending Physician: Juventino Carreno M.D. Primary Care Physician: Mahin Martin M.D. OPERATIVE REPORT PRIMARY CARE PHYSICIAN Mahin Martin M.D. PREOPERATIVE DIAGNOSES Diarrhea and upper abdominal pain. PROCEDURES PERFORMED Upper gastrointestinal endoscopy with biopsy as well as colonoscopy with biopsies. POSTOPERATIVE DIAGNOSES For upper endoscopy: Gastritis and gastric polyps. Biopsies were obtained from the antrum for CLOtest. In addition, two of the polyps were removed for histology. These are most likely hyperplastic polyps. For colonoscopy: 1. The patient had a single sessile polyp in the distal transverse colon. This was removed using snare polypectomy. 2. Rest of the examination up to cecum was normal. The quality of the prep was somewhat suboptimal especially in the cecum. Multiple random colonic biopsies were obtained from throughout the colon to rule out microscopic or collagenous colitis. RECOMMENDATIONS Supportive and symptomatic treatment is in order. The patient will require follow up in the office in 8 to 10 weeks' time. SEDATION USED MAC. DESCRIPTION OF PROCEDURE Following detailed explanation of potential risks and complications of an upper endoscopy and a colonoscopy, namely perforation, bleeding, and complications related to sedation, the patient was brought to GI lab and laid in the left lateral decubitus position. Lubricated tip of the Olympus video upper endoscope was passed through the bite block into the proximal esophagus under direct vision. The entire esophageal mucosa was examined and appeared normal. Z-line was nicely demarcated, there being no esophagitis or hiatus hernia. The scope was then advanced into the gastric cavity and the latter was insufflated. Mucosa of the fundus, body, and antrum was examined. Ttyh-kg-khuyomnq prepyloric antral erosive gastritis was noted in the form of erythema erosions in the antral area. A biopsy was obtained from the antrum for CLOtest. The pylorus was Unit #: [id number] #: [id number] Patient: BRYNN MOHR intubated with visualization of the normal duodenal bulb and second and third part of the duodenum. Upon withdrawal and retroflexion; incisura, cardia, and greater curve was examined and no additional findings were noted. The scope was then withdrawn in the distal esophagus. Plaque like appearances were noted in the distal esophagus at the time of withdrawal; although, there is some form of esophagitis. The exact significance is unclear. They are clearly benign. The scope was then withdrawn all the way up to pharynx. No additional findings were noted. The examination table was then turned by 180 degrees and the patient was positioned for a colonoscopy. A digital rectal examination was performed, which was normal. Lubricated tip of the Olympus video colonoscope was inserted through the anus and advanced under direct vision. The scope was advanced past rectosigmoid into descending colon. No diverticula were seen in this area. The scope tip was then navigated all the way up to cecum with visualization of the ileocecal valve and the appendiceal orifice. The patient with lot of stool residue in the cecum, therefore it was impossible to completely clear to cecum of all the residue. Last few inches of the terminal ileum were also visualized after intubation of the ileocecal valve and appeared normal. Successive segments of the colonic mucosa were examined upon withdrawal and appeared unremarkable except for a single sessile polyp in the proximal transverse colon. This was about 8 mm in size. It was removed using snare polypectomy. No additional polyps were noted. No diverticula or hemorrhoids were seen. Multiple random colonic biopsies were obtained from throughout the colon to rule out microscopic or collagenous colitis. The scope was then withdrawn and the patient returned to the recovery area. She tolerated the procedure without any postprocedure complications. Dictated by... Kwadwo Acosta TD: 03/05/2017 11:07 JOB #: [id number] OPERATIVE REPORT Page 1 of 1 X Ortega Reyes MD PROCEDURE OPERATIVE NOTE
--- NOTE | ~2017-02-28 | CR63 ---
[facility] A Service of [facility] RADIOLOGY TEXT RESULTS PATIENT: BRYNN MOHR LOCATION: [facility] 54-01 : [birth year] UNIT #: [id number] AGE: [address]: Juventino Carreno MD SEX: M ORDER DR: [id number] [facility] [address] [place], [place] [address] [id number] I MR#: [id number] Acc #: [id number] NAME: BRYNN MOHR : 1970 SEX: M STUDY DATE/TIME: 03/02/2017 UNIT: [facility] ROOM: [facility] STUDY DESCRIPTION: CR Chest 2 View Attending Physician: Juventino Carreno M.D. Ordering Physician: Juventino Carreno M.D. Primary Care Physician: Mahin Martin M.D. MEDICAL IMAGING REPORT This report is preliminary unless electronic signature is present EXAM Chest 08/11 views 03/02/2017 10:38 hours HISTORY 47-year-old with cough, fever, chills for 3 weeks, sepsis. COMPARISON 02/28/2017 FINDINGS Upright PA and lateral views of the chest are limited by low lung volumes. There is stable cardiomegaly and mildly tortuous aorta. There is some linear density at the right lung base likely atelectasis. No definite pneumonia or effusion. IMPRESSION 1. Stable cardiomegaly and tortuous aorta. 2 There is persistent predominantly linear density at the medial right lung base likely atelectasis less likely infection. Dictated by... Yesi Garcia M.D. THIS IS AN ELECTRONICALLY VERIFIED REPORT Yesi Garcia M.D. at 03/02/2017 2:34 PM SMM/adamaris TD: 03/02/2017 12:56 JOB #: [id number] MEDICAL IMAGING REPORT Page 1 of 1 COPY
[2017-02-28 13:06] LABS: BASOPHIL# 0.1 X10e3 (0-0.3); BASOPHIL% 0.3 % (0-2.5); DIFF IND YES; EOSINOPHIL# 0.1 X10e3 (0-0.7); EOSINOPHIL% 0.3 % (0.0-7.0); HEMATOCRIT 29.2 % (38.0-50.0); HEMOGLOBIN 9.8 gm/dL (13.0-16.0); LYMPHOCYTE# 1.6 X10e3 (1.0-3.5); LYMPHOCYTE% 6.5 % (17.0-45.0); MEAN CELL VOLUME 83.9 FL (83-96); MEAN CORPUSCULAR HEMOGLOBIN 28.2 PG (28-34); MEAN CORPUSCULAR HGB CONC 33.6 g/dL (30-36); MEAN PLATELET VOLUME 9.1 FL (6.5-11.5); MONOCYTE# 1.6 X10e3 (0-1.0); MONOCYTE% 6.7 % (3.0-12.0); NEUTROPHIL# 21.2 X10e3 (1.5-7.1); NEUTROPHIL% 86.2 % (40-75); PLATELET COUNT 186 X10e3 (140-420); RED BLOOD COUNT 3.48 X10e (3.90-5.60); WHITE BLOOD COUNT 24.6 X10e3 (4.0-10.5)
[2017-02-28 13:23] LABS: ANISOCYTOSIS SL; PLATELET ESTIMATE NORMAL (NORMAL)
[2017-02-28 13:45] LABS: ALBUMIN SERUM 3.8 g/dL (3.5-5.0); BILIRUBIN, DIRECT 0.1 mg/dL (0.0-0.2); BILIRUBIN,INDIRECT 0.8 mg/dL (0.0-0.9); BILIRUBIN,TOTAL 0.9 mg/dL (0.2-2.0); CALCIUM SERUM 9.8 mg/dL (8.4-10.2); GLOM FILT RATE Estimated 6.2 mL/min (>60); POTASSIUM 4.7 mmol/L (3.5-5.1); PROTEIN TOTAL SERUM 8.3 g/dL (6.0-8.3)
[2017-02-28] MEDS ORDERED: PATIENT'S PHARMACY (15:29)
[2017-02-28] MEDS ORDERED: LANTUS SOL100 UNIT/1 SUBQ (15:30)
[2017-02-28] MEDS ORDERED: BRILINTA90 MG PO (15:30)
[2017-02-28] MEDS ORDERED: LATANOPROST2.5 ML OU (15:30)
[2017-02-28] MEDS ORDERED: BRIMONIDINE TART5 ML OU (15:30)
[2017-02-28] MEDS ORDERED: ASPIRIN81 M2 PO (15:31)
[2017-02-28] MEDS ORDERED: GABAPENTIN300 MG PO (15:31)
[2017-02-28] MEDS ORDERED: COZAAR PO (15:31)
[2017-02-28] MEDS ORDERED: LIPITOR20 MG PO (15:31)
[2017-02-28] MEDS ORDERED: LOPRESSOR PO (15:32)
[2017-02-28] MEDS ORDERED: OMEPRAZOLE40 M1 PO (15:32)
[2017-02-28] MEDS ORDERED: DILTIAZEM 24HR120 M1 PO (15:32)
[2017-02-28] MEDS ORDERED: HYDROXYZINE HCL25 M1 PO (15:32)
[2017-02-28] MEDS ORDERED: COSOPT EYE DROP10 ML OU (15:33)
[2017-03-01 06:09] LABS: BUN/CREATININE RATIO 6.73; CALCIUM SERUM 8.7 mg/dL (8.4-10.2); CREATININE SERUM 10.4 mg/dL (0.6-1.4); GLOM FILT RATE Estimated 5.2 mL/min (>60); POTASSIUM 4.4 mmol/L (3.5-5.1)
[2017-03-01 06:16] LABS: HEMATOCRIT 27.9 % (38.0-50.0); HEMOGLOBIN 9.3 gm/dL (13.0-16.0); MEAN CORPUSCULAR HEMOGLOBIN 28.4 PG (28-34); MEAN CORPUSCULAR HGB CONC 33.4 g/dL (30-36); MEAN PLATELET VOLUME 9.3 FL (6.5-11.5); RED BLOOD COUNT 3.28 X10e (3.90-5.60); RED CELL DISTRIBUTION WIDTH 17.9 % (11.0-15.5); WHITE BLOOD COUNT 22.3 X10e3 (4.0-10.5)
[2017-03-02 05:30] LABS: HEMATOCRIT 32.5 % (38.0-50.0); HEMOGLOBIN 10.4 gm/dL (13.0-16.0); MEAN CORPUSCULAR HEMOGLOBIN 28.3 PG (28-34); MEAN PLATELET VOLUME 9.1 FL (6.5-11.5); RED BLOOD COUNT 3.67 X10e (3.90-5.60); RED CELL DISTRIBUTION WIDTH 18.2 % (11.0-15.5); WHITE BLOOD COUNT 13.6 X10e3 (4.0-10.5)
[2017-03-02 05:33] LABS: MEAN CELL VOLUME 88.6 FL (83-96)
[2017-03-03] MEDS ORDERED: AMOXICILLIN250 M1 PO (14:59)
== END 2017-03-03 15:56 | disposition home or self-care (01) | DRG 871 ==
LOC: CED 12:07 → CEDOF 15:20 → CED 15:37 → CEDOF 22:17 → C5B 22:17
PROVIDERS: Emergency Medicine; Internal Medicine; Internal Medicine Gastroenterology
PROC: 5A1D60Z (ICD-10-PCS; principal; 2017-03-02)
PROC: 0DBL8ZX Excision of Transverse Colon, Via Natural or Artificial Opening Endoscopic, Diagnostic (ICD-10-PCS; 2017-03-03 08:23)
PROC: 0DBE8ZX Excision of Large Intestine, Via Natural or Artificial Opening Endoscopic, Diagnostic (ICD-10-PCS; 2017-03-03 08:23)
PROC: 0DB78ZX Excision of Stomach, Pylorus, Via Natural or Artificial Opening Endoscopic, Diagnostic (ICD-10-PCS; 2017-03-03 08:23)
DX: A40.9 Streptococcal sepsis, unspecified (principal); N18.6 End stage renal disease; E11.649 Type 2 diabetes mellitus with hypoglycemia without coma; N25.81 Secondary hyperparathyroidism of renal origin; I12.0 Hypertensive chronic kidney disease with stage 5 chronic kidney disease or end stage renal disease; J02.0 Streptococcal pharyngitis; T38.3X5A Adverse effect of insulin and oral hypoglycemic [antidiabetic] drugs, initial encounter; I25.10 Atherosclerotic heart disease of native coronary artery without angina pectoris; G47.33 Obstructive sleep apnea (adult) (pediatric); G40.909 Epilepsy, unspecified, not intractable, without status epilepticus; Z79.82 Long term (current) use of aspirin; Z79.4 Long term (current) use of insulin; Z86.73 Personal history of transient ischemic attack (TIA), and cerebral infarction without residual deficits; Z98.49 Cataract extraction status, unspecified eye; Z90.49 Acquired absence of other specified parts of digestive tract; K20.9 Esophagitis, unspecified; K29.00 Acute gastritis without bleeding; K63.5 Polyp of colon; Z99.2 Dependence on renal dialysis
CPT/HCPCS: 36415; 71010; 71020; 80048; 80076; 80202; 82947; 83605; 85025; 85027; 87040; 87077; 87493; 87880; 88305; 88313; 94760; 99291; J1815; J2270; J2543; J3370; Q4081

== ENCOUNTER 2017-03-16 11:13 | Inpatient (IN) | payer MEDICARE, OTHER ==
[~2017-03-16] VITALS: Ht 165.1 cm; Wt 88.8 kg
--- NOTE | ~2017-03-16 | DS ---
Unit #: [id number] #: [id number] Patient: BRYNN MOHR [id number] [address] [address] [id number] I MR#: [id number] NAME: BRYNN MOHR ROOM: 337 Age: 47 Sex: M Admission Date: 03/17/2017 : 1970 Discharge Date: 03/24/2017 Attending Physician: Juventino Carreno M.D. Primary Care Physician: Mahin Martin M.D. DISCHARGE SUMMARY PRIMARY DIAGNOSIS Sepsis. SECONDARY DIAGNOSES 1. Pneumonia, likely pleural effusion, likely parapneumonic effusion. 2. End stage renal disease. 3. Anemia. 4. Diabetes mellitus. HOSPITAL COURSE Patient was admitted to the hospital with sepsis. An extensive investigation into the possible cause was undertaken as patient had a recent hospitalization with the only finding at that time being Strep throat. Consultation was obtained with infectious disease with Dr. Jim Anderson and with nephrology with Dr. Sarita Mcmanus for his ESRD. Patient had extensive imaging in attempts to find a source of infection which included CT of the thoracic and lumbar spines and with interventional radiology for drainage of a right sided pleural effusion with removal of 1.2 L of fluid. Per my discussion with Dr. Anderson, it was felt that this effusion likely represents a parapneumonic effusion and he has recommended that the patient remain on IV vancomycin and tobramycin at dialysis for the next 10-11 days and our school child care attendant is setting this up and he will be discharged today. No evidence of colonic infection, skin infection, urinary tract infection or diskitis or spinal infection was found. Patient showed significant clinical improvement here in the hospital on IV antibiotics with Maxipime and vancomycin although he was switched the day prior to his discharge to Levaquin and Zyvox as he lost IV access and we wanted to avoid placing a PICC line in his arm to preserve the normal architecture of his upper extremity veins for possible future dialysis access. DISCHARGE DISPOSITION To home. DISCHARGE STATUS Stable. DISCHARGE DIET Dialysis diabetic diet. DISCHARGE ACTIVITY Ad celia. DISCHARGE FOLLOWUP Unit #: [id number] #: [id number] Patient: BRYNN MOHR With his regular dialysis center 3x a week on Monday, Monday, Monday where he will see his dialysis physicians and his nurse practitioners there. DISCHARGE MEDICATIONS 1. Tylenol 650 mg p.o. q.6 hours p.r.n. for mild pain or headache. 2. Gabapentin 300 mg p.o. q. h.s. 3. Hydroxyzine 25 mg p.o. b.i.d. 4. Cosopt eyedrops, one drop OU b.i.d. 5. Diltiazem 24 hour tablet, 120 mg p.o. daily. 6. Lopressor 50 mg p.o. daily. 7. Latanoprost drops, 1 drop OU q. h.s. 8. Lipitor 20 mg p.o. daily. 9. Cozaar 50 mg p.o. daily. 10. Lantus 45 units subcu q. h.s. 11. Vancomycin 1 g IV with dialysis for the next 5 sessions starting on MondayMarch 27. 12. Tobramycin 150 mg IV with each dialysis session for 5 dialysis sessions starting on March 27. Dictated by... Juventino Carreno M.D. PIPE/dequan TD: 03/28/2017 08:45 JOB #: [id number] DISCHARGE SUMMARY Page 1 of 1 X Juventino Carreno MD X DISCHARGE SUMMARY
--- NOTE | ~2017-03-16 | CR63 ---
[facility] A Service of [facility] & [facility] RADIOLOGY TEXT RESULTS PATIENT: BRYNN MOHR LOCATION: [facility] 337- : [birth year] UNIT #: [id number] AGE: [address]: Juventino Carreno MD SEX: M ORDER DR: [id number] [facility]. [place], [place] [address] [id number] I MR#: [id number] Acc #: [id number] NAME: BRYNN MOHR : 1970 SEX: M STUDY DATE/TIME: 03/21/2017 11:49 UNIT: [address] ROOM: [facility] STUDY DESCRIPTION: CR Chest 2 View Attending Physician: Juventino Carreno M.D. Ordering Physician: Chanda Saunders A.P.R.N. Primary Care Physician: Mahin Martin M.D. MEDICAL IMAGING REPORT This report is preliminary unless electronic signature is present EXAM Chest 2 views 03/21/2017 1149 hours HISTORY 47-year-old man with history of renal failure on dialysis, diabetes and asthma complaining of shortness of air for 2 days. History of hypertension. COMPARISON 03/16/2017 FINDINGS Upright PA and lateral views of the chest demonstrates stable mild enlargement of the cardiac silhouette. Aortic contours are normal. There is mild pulmonary venous distension with patchy density in the medial right infrahilar region increased from 03/16/2017. This could represent pneumonia or atelectasis. No definite effusion is seen on the lateral film. IMPRESSION Stable cardiomegaly. There is increase in patchy density at the medial right lung base which could represent atelectasis or pneumonia. No definite edema or effusion. Dictated by... Yesi Garcia M.D. THIS IS AN ELECTRONICALLY VERIFIED REPORT Yesi Garcia M.D. at 03/22/2017 9:32 AM MUMTAZ/jaquelin TD: 03/21/2017 22:20 JOB #: [id number] [facility] A Service of [facility] & [facility] RADIOLOGY TEXT RESULTS PATIENT: BRYNN MOHR LOCATION: [facility] 337-01 : [birth year] UNIT #: [id number] AGE: [address]: Juventino Carreno MD SEX: M ORDER DR: MEDICAL IMAGING REPORT Page 1 of 1 COPY
--- NOTE | ~2017-03-16 | CR71 ---
[facility] A Service of [facility] & [facility] RADIOLOGY TEXT RESULTS PATIENT: BRYNN MOHR LOCATION: [facility] 337- : [birth year] UNIT #: [id number] AGE: [address]: Juventino Carreno MD SEX: M ORDER DR: [id number] [id number] [facility]. [place], [place] [address] [id number] I MR#: [id number] Acc #: [id number] NAME: BRYNN MOHR : 1970 SEX: M STUDY DATE/TIME: 03/23/2017 9:36 UNIT: [address] ROOM: [facility] STUDY DESCRIPTION: CR Chest Single View Attending Physician: Juventino Carreno M.D. Ordering Physician: Huber Shipley M.D. Primary Care Physician: Mahin Martin M.D. MEDICAL IMAGING REPORT This report is preliminary unless electronic signature is present EXAM Portable chest. INDICATIONS Status post thoracentesis. Evaluate for pneumothorax. COMPARISON 03/21/17. FINDINGS This portable view of the chest does not show any evidence of pneumothorax. The heart size is normal and the lungs are clear. The is blunting of the right costophrenic angle perhaps representing a tiny effusion. Dictated by... Luis Guerrero M.D. THIS IS AN ELECTRONICALLY VERIFIED REPORT Luis Guerrero M.D. at 03/23/2017 3:38 PM FEL/bd TD: 03/23/2017 15:27 JOB #: [id number] MEDICAL IMAGING REPORT Page 1 of 1 COPY
--- NOTE | ~2017-03-16 | CR72 ---
[facility] A Service of [facility] & [facility] RADIOLOGY TEXT RESULTS PATIENT: BRYNN MOHR LOCATION: [facility] 337-01 : [birth year] UNIT #: [id number] AGE: [address]: Juventino Carreno MD SEX: M ORDER DR: [id number] [facility] [address] [facility]. [place], [place] [address] [id number] I MR#: [id number] Acc #: [id number] NAME: BRYNN MOHR : 1970 SEX: M STUDY DATE/TIME: 03/24/2017 02:59 UNIT: [address] ROOM: [facility] STUDY DESCRIPTION: CR Chest Single View Portable Attending Physician: Juventino Carreno M.D. Ordering Physician: Giovanna Delacruz M.D. Primary Care Physician: Mahin Martin M.D. MEDICAL IMAGING REPORT This report is preliminary unless electronic signature is present EXAM Portable chest, 03/24 at 02:59. INDICATIONS Shortness of air and right side chest pain today. Patient is status post thoracentesis. FINDINGS AP portable chest compared with 03/23/2017. Heart remains enlarged. There is some vascular congestion. There is a small right pleural effusion. It is stable to slightly increased since the prior study. A trace amount of left pleural fluid may be present. There is some infiltrate or atelectasis in the right base. There is no pneumothorax. Dictated by... John Rivera Jr., M.D. THIS IS AN ELECTRONICALLY VERIFIED REPORT John Rivera Jr., M.D. at 03/27/2017 7:13 AM BRAN/jim TD: 03/24/2017 09:59 JOB #: [id number] MEDICAL IMAGING REPORT Page 1 of 1 COPY
--- NOTE | ~2017-03-16 | XA203 ---
[facility] A Service of [facility] & [facility] RADIOLOGY TEXT RESULTS PATIENT: BRYNN MOHR LOCATION: [facility] 337- : [birth year] UNIT #: [id number] AGE: [address]: Juventino Carreno MD SEX: M ORDER DR: [id number] [id number] [place], [place] [address] [id number] I MR#: [id number] Acc #: [id number] NAME: BRYNN MOHR : 1970 SEX: M STUDY DATE/TIME: 03/23/2017 8:55 UNIT: [address] ROOM: [facility] STUDY DESCRIPTION: XA Thoracentesis Attending Physician: Juventino Carreno M.D. Ordering Physician: Jim Anderson M.D. Primary Care Physician: Mahin Martin M.D. MEDICAL IMAGING REPORT This report is preliminary unless electronic signature is present EXAM Ultrasound-guided right thoracentesis. HISTORY Right pleural effusion. PROCEDURE Informed consent was obtained. Skin site was selected with ultrasound guidance and marked, sterilely prepped and draped and locally anesthetized. Thoracentesis was performed with a [employer] needle catheter. A total 1.2 L of clear yellow fluid was removed. There were no complications. The patient tolerated the procedure well. IMPRESSION Successful ultrasound-guided right thoracentesis with removal of 1.2 L of fluid without complication. Dictated by... Huber Shipley M.D. THIS IS AN ELECTRONICALLY VERIFIED REPORT Huber Shipley M.D. at 03/24/2017 3:59 PM TEV/pcl TD: 03/23/2017 18:08 JOB #: [id number] MEDICAL IMAGING REPORT Page 1 of 1 COPY
--- NOTE | ~2017-03-16 | CO ---
Unit #: [id number] #: [id number] Patient: BRYNN MOHR [id number] [address] [place], [place] [address] [id number] I MR#: [id number] NAME: BRYNN MOHR ROOM: 337 Age: 47 Sex: M Admission Date: 03/16/2017 : 1970 Attending Physician: Juventino Carreno M.D. Primary Care Physician: Mahin Martin M.D. Consultation Date: 03/17/2017 CONSULTATION REPORT REASON FOR CONSULTATION End-stage renal disease. HISTORY OF PRESENT ILLNESS This patient is a 47-year-old gentleman with history of end-stage renal disease, on hemodialysis every Monday, , and Monday, who came in yesterday, apparently received by an RN or so of dialysis and due to shaking and fever and back pain and headache, he was taken off dialysis and sent to the emergency room, where he was noted to have a potassium of 5.7. In the ER yesterday, apparently another group was consulted, although did not see the patient yesterday and labs were drawn this morning with a potassium was up to 6.7, at which time, the patient was ordered stat treatment and dialysis at 9 a.m. this morning. The patient was finally seen by the other group and was noted that it was actually our patient; therefore, we were called to see the patient, which I received a call at approximately 25 minutes ago. The patient has already finished up dialysis. He still having some intermittent headache. He is not having any chest pain. No shortness of breath. No nausea or vomiting. Apparently, his access was working fine in his arm, he does not have a tunneled catheter that I could find. PAST MEDICAL HISTORY History of end-stage renal disease with hemodialysis every Monday, , Monday; history of hypertension; history of diabetes; history of pericardial effusion in the past; history of atherosclerotic coronary artery disease; history of TIA; history of hyperlipidemia; history of depression; history of obstructive sleep apnea; history of seizure; history of anemia; status post appendectomy; status post cholecystectomy; history of gastritis on EGD in 02/2017. He has a history of strep pharyngitis last month. REVIEW OF SYSTEMS Again, he has had some intermittent headache, ear pain, shakiness. No chest pain. No shortness of breath. No nausea or vomiting. He has some intermittent chronic diarrhea. No significant swelling. ALLERGIES Include Atarax, Phenergan, Flexeril, and Benadryl. FAMILY HISTORY Negative for kidney disease. Positive for diabetes. SOCIAL HISTORY He lives with his girlfriend. No alcohol. No smoking currently, but he Unit #: [id number] #: [id number] Patient: PITTS BRYNN GRUBBS did in the past. He had done cocaine and heroin, although I believe he is not doing that now the best I can tell. MEDICATIONS At home include aspirin 81 mg a day, Lipitor 20 mg a day, gabapentin 300 mg at night, Cozaar 50 mg a day, omeprazole 40 mg b.i.d., insulin, Brilinta 90 mg b.i.d., he is on Lopressor 50 mg a day, diltiazem CD 120 mg a day. PHYSICAL EXAMINATION VITAL SIGNS: His T-max 101.7, pulse 81 to 102, blood pressure 123 to 211 over 65 to 113. HEENT: He is normocephalic and atraumatic. Pupils are equal, round, and reactive to light. Extraocular muscles are intact. Hearing appears to be normal. Mouth is clear. No erythema. No exudate. NECK: Supple. No JVD. CARDIAC: He is without a rub. No S3 or S4. LUNGS: Clear bilaterally. No wheezes, rhonchi, or rales. ABDOMEN: Bowel sounds positive. Nontender. Soft. EXTREMITIES: He has no lower extremity swelling. Pulses are intact in upper and lower extremities. JOINTS: No joint pain or joint swelling. SKIN: No rashes. NEURO: Appears to be intact with motor and sensory grossly. : Deferred. DIAGNOSTIC STUDIES LABORATORY RESULTS: Again, sodium is 137, potassium 6.7, chloride is 96, bicarb is 27, his glucose is 131, BUN 71, creatinine 9.6, calcium is 9.4. His UA shows specific gravity of 1.016, 3+ protein, 500 of glucose, 5 to 10 rbc's, 10 to 25 wbc's. Blood and urine cultures are negative to date. Hemoglobin is 8.9, white count 16,000, and platelets 187,000. ASSESSMENT AND PLAN 1. End-stage renal disease, again the patient just finished up dialysis. He is normally on Monday, , Monday dialysis patient. We will plan on checking labs in the morning and if his potassium is still elevated, we will go ahead and do dialysis tomorrow, if not may need to do on Monday to get him back on his regular schedule. We will follow over the weekend. We will check labs in the morning. We will follow. 2. Hypertension, the patient back on his blood pressure medicines. We will follow trends and adjust as indicated. 3. Anemia. We will give EPO with dialysis with his next treatment here. 4. Fever possible sepsis, workup underway. Thank you very much. Dictated by..Maico De Santiago M.D. JOVANNY/stefanie TD: 03/18/2017 11:24 JOB #: [id number] Unit #: [id number] #: [id number] Patient: BRYNN MOHR CONSULTATION REPORT Page 1 of 1 X Alexandria De Santiago MD X CONSULTATION REPORT
--- NOTE | ~2017-03-16 | EKG ---
PATIENT: BRYNN MOHR UNIT #: [id number] Ventricular Rate: 93 BPM Atrial Rate: 93 BPM P-R Interval: 162 ms QRS Duration: 86 ms Q-T Interval: 330 ms QTC Calculation(Bezet): 410 ms P Iaeger: 66 degrees Calculated R Iaeger: 51 degrees Calculated T Iaeger: 84 degrees Diagnosis Line: Normal sinus rhythm Diagnosis Line: Possible Left atrial enlargement Diagnosis Line: Nonspecific ST and T wave abnormality Diagnosis Line: Abnormal ECG Diagnosis Line: When compared with ECG of 05-JAN-2017 09:08, Diagnosis Line: QT has shortened Diagnosis Line: Confirmed by LEONORA LOZA MD ([id number]) on Diagnosis Line: 03/17/2017 10:52:41 AM INTERPRETING MD: DAGO PARTIDA
--- NOTE | ~2017-03-16 | CT98 ---
[facility] A Service of [facility] & [facility] RADIOLOGY TEXT RESULTS PATIENT: BRYNN MOHR LOCATION: [facility] 337- : [birth year] UNIT #: [id number] AGE: [address]: Juventino Carreno MD SEX: M ORDER DR: [id number] [id number] [facility]. [place], [place] [address] [id number] I MR#: [id number] Acc #: [id number] NAME: BRYNN MOHR : 1970 SEX: M STUDY DATE/TIME: 03/21/2017 12:07 UNIT: [address] ROOM: [facility] STUDY DESCRIPTION: CT Lumbar Spine Wo Cont Attending Physician: Juventino Carreno M.D. Ordering Physician: Juventino Carreno M.D. Primary Care Physician: Mahin Martin M.D. MEDICAL IMAGING REPORT This report is preliminary unless electronic signature is present EXAM Lumbar spine CT HISTORY Back pain with fever. Pain radiates to the thighs. Symptoms beginning 03/16/2017. TECHNIQUE Imaging was obtained from the lower thoracic spine to the sacrum and evaluated at bone and soft tissue windows with multiplanar reformats. This CT exam was performed with one or more of the following radiation dose reduction techniques: automatic control, adjustment of mA and/or kV according to patient size, and iterative reconstruction. FINDINGS Alignment is satisfactory. Disc space heights are preserved. There is a small anterior osteophyte at L4-5. No fractures or pars defects are seen. Posterior facets are intact. Moderate motion artifact is seen through the L4-5 level. IMPRESSION Negative lumbar spine CT except for small anterior osteophyte at L4-5. Dictated by... John Gomes M.D. THIS IS AN ELECTRONICALLY VERIFIED REPORT John Gomes M.D. at 03/24/2017 7:03 AM VINCE/jaquelin TD: 03/22/2017 04:02 JOB #: [id number] [facility] A Service of [facility] RADIOLOGY TEXT RESULTS PATIENT: BRYNN MOHR LOCATION: [facility] 337-01 : [birth year] UNIT #: [id number] AGE: [address]: Juventino Carreno MD SEX: M ORDER DR: MEDICAL IMAGING REPORT Page 1 of 1 COPY
--- NOTE | ~2017-03-16 | CT122 ---
[facility] A Service of [facility] & [facility] RADIOLOGY TEXT RESULTS PATIENT: BRYNN MOHR LOCATION: [facility] 337- : [birth year] UNIT #: [id number] AGE: [address]: Juventino Carreno MD SEX: M ORDER DR: [id number] [id number] [facility]. [place], [place] [address] [id number] I MR#: [id number] Acc #: [id number] NAME: BRYNN MOHR : 1970 SEX: M STUDY DATE/TIME: 03/21/2017 13:50 UNIT: [address] ROOM: [facility] STUDY DESCRIPTION: CT Thoracic Spine Wo Cont Attending Physician: Juventino Carreno M.D. Ordering Physician: Juventino Carreno M.D. Primary Care Physician: Mahin Martin M.D. MEDICAL IMAGING REPORT This report is preliminary unless electronic signature is present EXAM CT thoracic spine HISTORY Back pain radiating to the thighs with fever beginning on 03/16/2017 TECHNIQUE Thin section imaging was obtained through the thoracic spine and evaluated at bone and soft tissue windows with multiplanar reformats. This CT exam was performed with one or more of the following radiation dose reduction techniques: automatic control, adjustment of mA and/or kV according to patient size, and iterative reconstruction. FINDINGS Alignment is satisfactory. Disc space heights are preserved with the exception of moderate disc space narrowing at T5-6. There is no evidence of endplate destruction or paraspinous edema to suggest diskitis. There is a moderate-sized right pleural effusion with no pleural fluid seen on the left. No fractures are noted. IMPRESSION Moderately large right pleural effusion. Moderate degenerative disc disease T5-6. No acute bony abnormalities are seen. Dictated by... John Gomes M.D. THIS IS AN ELECTRONICALLY VERIFIED REPORT John Gomes M.D. at 03/24/2017 7:02 AM VINCE/jaquelin TD: 03/22/2017 05:40 JOB #: [id number] [facility] A Service of [facility] & [facility] RADIOLOGY TEXT RESULTS PATIENT: BRYNN MOHR LOCATION: [facility] 337-01 : [birth year] UNIT #: [id number] AGE: [address]: Juventino Carreno MD SEX: M ORDER DR: MEDICAL IMAGING REPORT Page 1 of 1 COPY
--- NOTE | ~2017-03-16 | CR72 ---
[facility] A Service of [facility] RADIOLOGY TEXT RESULTS PATIENT: BRYNN MOHR LOCATION: [facility] 337-01 : [birth year] UNIT #: [id number] AGE: [address]: Juventino Carreno MD SEX: M ORDER DR: [id number] [facility] [address] [facility]. [place], [place] [address] [id number] I MR#: [id number] Acc #: [id number] NAME: BRYNN MOHR : 1970 SEX: M STUDY DATE/TIME: 03/16/2017 12:35 UNIT: CEDOF ROOM: [id number] STUDY DESCRIPTION: CR Chest Single View Portable Attending Physician: Gricel Alva M.D. Ordering Physician: John Mcallister M.D. Primary Care Physician: Mahin Martin M.D. MEDICAL IMAGING REPORT This report is preliminary unless electronic signature is present EXAM AP portable chest DATE 03/16/2017 HISTORY Shortness of breath and earache today. On dialysis. COMPARISON PA and lateral chest 03/02/2017. FINDINGS Low volume inspiration. Stable cardiomegaly. Mild right basilar atelectasis or scarring has a similar appearance to the previous examination. Left lung remains clear. No pneumothorax. No acute osseous abnormality. IMPRESSION 1. Mild chronic scarring versus mild atelectasis in the right base, similar to the 03/02/2017 exam. 2. Stable cardiomegaly without evidence of pulmonary edema. Dictated by... Mindi Neil M.D. THIS IS AN ELECTRONICALLY VERIFIED REPORT Mindi Neil M.D. at 03/17/2017 8:42 AM XI/jaquelin TD: 03/16/2017 16:39 JOB #: [id number] [facility] A Service of [facility] RADIOLOGY TEXT RESULTS PATIENT: BRYNN MOHR LOCATION: [facility] 337-01 : [birth year] UNIT #: [id number] AGE: [address]: Juventino Carreno MD SEX: M ORDER DR: MEDICAL IMAGING REPORT Page 1 of 1 COPY
--- NOTE | ~2017-03-16 | HP ---
Unit #: [id number] #: [id number] Patient: BRYNN MOHR [id number] [address] [place], [place] [address] [id number] MR#: [id number] NAME: BRYNN MOHR ROOM: Age: 47 Sex: M Admission Date: 03/16/2017 : 1970 Attending Physician: John Mcallister M.D. Primary Care Physician: Mahin Martin M.D. HISTORY AND PHYSICAL CHIEF COMPLAINT Back pain and thigh pain. HISTORY OF PRESENT ILLNESS The patient is a 47-year-old male with a history of end-stage renal disease on hemodialysis, hypertension, coronary artery disease, brought to the emergency room from the dialysis center. The patient went to the dialysis earlier today and was getting the dialysis. 45 minutes into the dialysis the patient started shaking and complaining of the back pain and the thigh pain. The patient had a fever of 100.4. The patient was told that dialysis catheter is blocked and he needs to follow with the vascular surgeon tomorrow. The patient was sent to the emergency room. The patient was found to have a potassium of 5.7 and a fever of 100.4. The patient is being admitted for the above reasons. The patient was discharged from the hospital on March 03 with the streptococcal pharyngitis on amoxicillin. PAST MEDICAL HISTORY History of pericardial effusion, end-stage renal disease on hemodialysis, coronary artery disease status post stent, insulin dependent diabetes mellitus, possible previous TIA, hyperlipidemia, depression, obstructive sleep apnea, seizure, hyperparathyroidism, hypertension, anemia secondary to chronic kidney disease. PAST SURGICAL HISTORY Cholecystectomy, catheter extraction, hernia repair. ALLERGIES Atarax, Phenergan, Flexeril, Benadryl. HOME MEDICATIONS Lopressor, hydroxyzine, diltiazem, Cosopt eye drops, amoxicillin, aspirin, Lipitor, gabapentin, Cozaar, omeprazole, Lantus, Brilinta, brimonidine, latanoprost. FAMILY HISTORY Positive for diabetes. SOCIAL HISTORY Patient lives with his girlfriend. He does not smoke, drink alcohol or any illicit drug abuse. He does have a previous history of cocaine and heroin use in the past. Unit #: [id number] #: [id number] Patient: BRYNN MOHR REVIEW OF SYSTEMS Positive for fever, positive for back pain, positive for thigh pain and all other systems have been reviewed and are negative except as mentioned. PHYSICAL EXAMINATION GENERAL APPEARANCE: On examination patient was lying on a bed not in acute distress. VITAL SIGNS: Temperature 100.4, pulse 95, respiratory rate 18, blood pressure 211/113, sating 96% at room air. HEAD: Atraumatic/normocephalic. HEENT: Pupils equal, round, reacting to light and accommodation. Extraocular movements are intact. Dry mucous membrane. NECK: Supple. LUNGS: Decreased air entry at the bases. HEART: Regular rate and rhythm. ABDOMEN: Soft, positive bowel sounds. EXTREMITIES: patient has a fistula in the left upper extremity with no drainage, positive for thrill. NEUROLOGIC: Alert, awake, oriented. No gross focal motor deficit. PSYCH: Mood and affect are appropriate. DIAGNOSTIC STUDIES LAB DATA: Troponin less than 0.05. Strep screen is negative and WBCs 13.6, hemoglobin 10.1, hematocrit 29.9, platelet is 183, lactic acid is 1, sodium 134, potassium 5.7, chloride 94, bicarb 28, glucose 196, BUN 58, creatinine 7.9, calcium 9.8, AST 15, ALT 15 and albumin is 4. ASSESSMENT AND PLAN 1. Hyperkalemia. 2. End-stage renal disease on hemodialysis. 3. Probable hemodialysis catheter malfunction. 4. Fever, to rule out the endocarditis. Plan to admit to the inpatient with the telemetry, will have the renal consult for hemodialysis today and the patient has received the D50, glucose, insulin and sodium bicarb and calcium gluconate in the emergency room and follow up with the repeat potassium levels and check the echocardiogram to rule out other vegetations and repeat the blood work again in the morning and further recommendations will follow. Dictated by Kwadwo Rivera TD: 03/16/2017 15:19 JOB #: [id number] Unit #: [id number] #: [id number] Patient: BRYNN MOHR HISTORY AND PHYSICAL Page 1 of 1 X JONATHAN FIGUEREDO MD HISTORY AND PHYSICAL
--- NOTE | ~2017-03-16 | CO ---
Unit #: [id number] #: [id number] Patient: BRYNN MOHR [id number] [address] [address] [id number] MR#: [id number] NAME: BRYNN MOHR ROOM: 337 Age: 47 Sex: M Admission Date: 03/16/2017 : 1970 Attending Physician: Juventino Carreno M.D. Primary Care Physician: Mahin Martin M.D. Consultation Date: 03/17/2017 CONSULTATION REPORT REASON FOR CONSULTATION Fever. HISTORY OF PRESENT ILLNESS The patient is a 46-year-old male, who had history of end-stage renal disease, hypertension, coronary artery disease, came from dialysis center with complaints of fevers, chills, low back pain, and lower extremity pain. The patient was admitted to this hospital 2 weeks ago with fever, the possibility of strep pharyngitis and was treated accordingly, but was secondarily requiring IV antibiotics. At this time, he does not have any other localizing signs, but does still has fever. He was admitted and started on antibiotics. Infectious Disease consultation requested for further evaluation and antibiotic management. PAST MEDICAL HISTORY 1. Pericardial effusion. 2. End-stage renal disease, on hemodialysis via left upper extremity access. 3. Coronary artery disease. 4. Type 2 diabetes. 5. TIA. 6. Hyperlipidemia. 7. Depression. 8. Obstructive sleep apnea. 9. Seizure. 10. Hyperparathyroidism. 11. Hypertension. 12. Anemia. 13. Morbid obesity. 14. Cholecystectomy. 15. Hernia repair. 16. Cataract extraction. ALLERGIES Atarax, Phenergan, Flexeril, and Benadryl. SOCIAL HISTORY Noncontributory. FAMILY HISTORY Noncontributory. CURRENT MEDICATIONS List reviewed. Antibiotics include Rocephin and vancomycin. Unit #: [id number] #: [id number] Patient: BRYNN MOHR PHYSICAL EXAMINATION GENERAL: Sitting in no distress. VITAL SIGNS: Temperature 98.6, T-max 101.7, pulse 84, respiration 21, blood pressure 158/72. HEENT: Unremarkable. NECK: Supple. CHEST: Clear to auscultation. HEART: Normal S1, S2. ABDOMEN: Soft, nontender. EXTREMITIES: Shows no edema. DIAGNOSTIC STUDIES IMAGING STUDIES: Chest x-ray negative for acute changes. LABORATORY RESULTS: BUN 71, creatinine 9.6. LFTs normal. WBC 16, hemoglobin 8.9, platelets 187. Urinalysis unremarkable. Cultures pending. ASSESSMENT 1. Fever. 2. Back pain. 3. Leukocytosis. 4. End-stage renal disease, on hemodialysis. PLAN At this time, we will follow up on the results of echo. Continue empiric antibiotic therapy. Get lumbar spine MRI to rule out any possibility of diskitis or osteomyelitis. Further recommendation depending upon the course. I would like thank Dr. Carreno for asking us to participate in the care of this patient. We will follow this patient along with you. Dictated by... Kwadwo Collazo/stefanie TD: 03/18/2017 13:06 JOB #: [id number] CONSULTATION REPORT Page 1 of 1 X Jim Anderson MD X CONSULTATION REPORT
[~2017-03-16 11:13] MED LIST changes: +AMOXICILLIN250 M1 PO; +BRIMONIDINE TART5 ML OU; +COSOPT EYE DROP10 ML OU; +DILTIAZEM 24HR120 M1 PO; +GABAPENTIN300 MG PO; +HYDROXYZINE HCL25 M1 PO; +LANTUS SOL100 UNIT/1 SUBQ; +LATANOPROST2.5 ML OU; +LOPRESSOR PO; +PATIENT'S PHARMACY
[2017-03-16 13:12] LABS: POC - CKMB 6.8 ng/mL (0.0-7.9); POC - TROPONIN <0.05 ng/mL (<=0.05)
[2017-03-16 13:25] LABS: BASOPHIL# 0.1 X10e3 (0-0.3); BASOPHIL% 0.9 % (0-2.5); EOSINOPHIL# 0.6 X10e3 (0-0.7); EOSINOPHIL% 4.4 % (0.0-7.0); HEMATOCRIT 29.9 % (38.0-50.0); HEMOGLOBIN 10.1 gm/dL (13.0-16.0); LYMPHOCYTE# 1.3 X10e3 (1.0-3.5); LYMPHOCYTE% 9.5 % (17.0-45.0); MEAN CELL VOLUME 84.1 FL (83-96); MEAN CORPUSCULAR HEMOGLOBIN 28.4 PG (28-34); MEAN CORPUSCULAR HGB CONC 33.7 g/dL (30-36); MEAN PLATELET VOLUME 9.4 FL (6.5-11.5); MONOCYTE% 7.6 % (3.0-12.0); NEUTROPHIL# 10.5 X10e3 (1.5-7.1); NEUTROPHIL% 77.6 % (40-75); PLATELET COUNT 183 X10e3 (140-420); RED BLOOD COUNT 3.56 X10e (3.90-5.60); RED CELL DISTRIBUTION WIDTH 16.6 % (11.0-15.5); WHITE BLOOD COUNT 13.6 X10e3 (4.0-10.5)
[2017-03-16 13:26] LABS: DIFF IND NO
[2017-03-16 13:45] LABS: BILIRUBIN, DIRECT 0.1 mg/dL (0.0-0.2); BILIRUBIN,INDIRECT 0.4 mg/dL (0.0-0.9); BILIRUBIN,TOTAL 0.5 mg/dL (0.2-2.0); BUN/CREATININE RATIO 7.34; CALCIUM SERUM 9.8 mg/dL (8.4-10.2); CREATININE SERUM 7.9 mg/dL (0.6-1.4); GLOM FILT RATE Estimated 7.2 mL/min (>60); PROTEIN TOTAL SERUM 8.6 g/dL (6.0-8.3)
[2017-03-16 13:48] LABS: POTASSIUM 5.7 mmol/L (3.5-5.1)
[2017-03-16 15:00] LABS: URINE SOURCE CLEAN CATCH
[2017-03-16 15:05] LABS: URINE APPEARANCE CLEAR; URINE BILIRUBIN NEG (NEG); URINE BLOOD 1+ (NEG); URINE COLOR YELLOW; URINE GLUCOSE 500 MG/DL (NEG); URINE KETONE NEG (NEG); URINE LEUKOCYTE ESTERASE 1+ (NEG); URINE NITRATE NEG (NEG); URINE PH 8.5 (5-8); URINE PROTEIN 3+ (NEG); URINE SPECIFIC GRAVITY 1.016 (1.003-1.035); URINE UROBILINOGEN 0.2 MG/DL (NEG)
[2017-03-16 15:08] LABS: CULTURE INDICATED? YES; URINE BACTERIA AUWI NEG (NEGATIVE); URINE SQUAMOUS EPITHELIAL CELL MANY /[HPF]
[2017-03-17 06:30] LABS: HEMATOCRIT 26.8 % (38.0-50.0); HEMOGLOBIN 8.9 gm/dL (13.0-16.0); MEAN CELL VOLUME 84.5 FL (83-96); MEAN CORPUSCULAR HEMOGLOBIN 28.1 PG (28-34); MEAN CORPUSCULAR HGB CONC 33.3 g/dL (30-36); MEAN PLATELET VOLUME 9.5 FL (6.5-11.5); RED BLOOD COUNT 3.17 X10e (3.90-5.60)
[2017-03-17 07:05] LABS: BUN/CREATININE RATIO 7.39; CALCIUM SERUM 9.4 mg/dL (8.4-10.2); CREATININE SERUM 9.6 mg/dL (0.6-1.4); GLOM FILT RATE Estimated 5.7 mL/min (>60)
[2017-03-17 07:12] LABS: POTASSIUM 6.7 mmol/L (3.5-5.1)
[2017-03-18 05:48] LABS: HEMATOCRIT 25.1 % (38.0-50.0); HEMOGLOBIN 8.5 gm/dL (13.0-16.0); MEAN CELL VOLUME 85.6 FL (83-96); MEAN CORPUSCULAR HGB CONC 33.9 g/dL (30-36); MEAN PLATELET VOLUME 9.5 FL (6.5-11.5); RED BLOOD COUNT 2.93 X10e (3.90-5.60); RED CELL DISTRIBUTION WIDTH 16.8 % (11.0-15.5); WHITE BLOOD COUNT 9.9 X10e3 (4.0-10.5)
[2017-03-18 06:23] LABS: CALCIUM SERUM 8.9 mg/dL (8.4-10.2)
[2017-03-18 06:26] LABS: BUN/CREATININE RATIO 6.31; CREATININE SERUM 5.7 mg/dL (0.6-1.4); GLOM FILT RATE Estimated 10.7 mL/min (>60)
[2017-03-19 05:56] LABS: HEMATOCRIT 27.5 % (38.0-50.0); HEMOGLOBIN 9.3 gm/dL (13.0-16.0); MEAN CELL VOLUME 84.8 FL (83-96); MEAN CORPUSCULAR HEMOGLOBIN 28.7 PG (28-34); MEAN CORPUSCULAR HGB CONC 33.8 g/dL (30-36); MEAN PLATELET VOLUME 9.4 FL (6.5-11.5); RED BLOOD COUNT 3.24 X10e (3.90-5.60); RED CELL DISTRIBUTION WIDTH 16.9 % (11.0-15.5); WHITE BLOOD COUNT 10.6 X10e3 (4.0-10.5)
[2017-03-20 07:24] LABS: BASOPHIL# 0.1 X10e3 (0-0.3); BASOPHIL% 1.1 % (0-2.5); EOSINOPHIL# 0.6 X10e3 (0-0.7); EOSINOPHIL% 6.6 % (0.0-7.0); HEMATOCRIT 25.8 % (38.0-50.0); HEMOGLOBIN 8.8 gm/dL (13.0-16.0); LYMPHOCYTE# 2.2 X10e3 (1.0-3.5); LYMPHOCYTE% 22.5 % (17.0-45.0); MEAN CELL VOLUME 84.8 FL (83-96); MEAN CORPUSCULAR HGB CONC 34.2 g/dL (30-36); MEAN PLATELET VOLUME 8.8 FL (6.5-11.5); MONOCYTE# 0.9 X10e3 (0-1.0); MONOCYTE% 8.9 % (3.0-12.0); NEUTROPHIL# 5.9 X10e3 (1.5-7.1); NEUTROPHIL% 60.9 % (40-75); PLATELET COUNT 210 X10e3 (140-420); RED BLOOD COUNT 3.04 X10e (3.90-5.60); RED CELL DISTRIBUTION WIDTH 17.3 % (11.0-15.5); WHITE BLOOD COUNT 9.7 X10e3 (4.0-10.5)
[2017-03-20 07:27] LABS: DIFF IND NO
[2017-03-20 07:55] LABS: BUN/CREATININE RATIO 7.8; CALCIUM SERUM 8.5 mg/dL (8.4-10.2); CREATININE SERUM 7.3 mg/dL (0.6-1.4); POTASSIUM 4.6 mmol/L (3.5-5.1)
[2017-03-21 05:03] LABS: HEMATOCRIT 25.8 % (38.0-50.0); HEMOGLOBIN 8.6 gm/dL (13.0-16.0); MEAN CELL VOLUME 84.7 FL (83-96); MEAN CORPUSCULAR HEMOGLOBIN 28.4 PG (28-34); MEAN CORPUSCULAR HGB CONC 33.5 g/dL (30-36); RED BLOOD COUNT 3.05 X10e (3.90-5.60); RED CELL DISTRIBUTION WIDTH 17.2 % (11.0-15.5)
[2017-03-21 06:17] LABS: BUN/CREATININE RATIO 8.47; CALCIUM SERUM 8.7 mg/dL (8.4-10.2); CREATININE SERUM 9.2 mg/dL (0.6-1.4); POTASSIUM 5.2 mmol/L (3.5-5.1)
[2017-03-21 14:04] LABS: MAGNESIUM 1.8 mg/dL (1.6-3.0); PHOSPHOROUS 3.8 mg/dL (2.5-4.6)
[2017-03-22 07:32] LABS: HEMATOCRIT 25.7 % (38.0-50.0); HEMOGLOBIN 8.7 gm/dL (13.0-16.0); MEAN CELL VOLUME 85.3 FL (83-96); MEAN CORPUSCULAR HEMOGLOBIN 28.8 PG (28-34); MEAN CORPUSCULAR HGB CONC 33.8 g/dL (30-36); MEAN PLATELET VOLUME 8.8 FL (6.5-11.5); RED BLOOD COUNT 3.01 X10e (3.90-5.60); RED CELL DISTRIBUTION WIDTH 17.6 % (11.0-15.5); WHITE BLOOD COUNT 10.5 X10e3 (4.0-10.5)
[2017-03-23 06:47] LABS: BASOPHIL# 0.1 X10e3 (0-0.3); BASOPHIL% 0.6 % (0-2.5); EOSINOPHIL# 0.7 X10e3 (0-0.7); EOSINOPHIL% 7.2 % (0.0-7.0); HEMATOCRIT 25.4 % (38.0-50.0); HEMOGLOBIN 8.5 gm/dL (13.0-16.0); LYMPHOCYTE# 1.9 X10e3 (1.0-3.5); LYMPHOCYTE% 18.8 % (17.0-45.0); MEAN CELL VOLUME 85.4 FL (83-96); MEAN CORPUSCULAR HEMOGLOBIN 28.7 PG (28-34); MEAN CORPUSCULAR HGB CONC 33.6 g/dL (30-36); MEAN PLATELET VOLUME 8.7 FL (6.5-11.5); MONOCYTE# 0.9 X10e3 (0-1.0); MONOCYTE% 9.3 % (3.0-12.0); NEUTROPHIL# 6.5 X10e3 (1.5-7.1); NEUTROPHIL% 64.1 % (40-75); PLATELET COUNT 194 X10e3 (140-420); RED BLOOD COUNT 2.97 X10e (3.90-5.60); RED CELL DISTRIBUTION WIDTH 17.9 % (11.0-15.5); WHITE BLOOD COUNT 10.2 X10e3 (4.0-10.5)
[2017-03-23 06:52] LABS: DIFF IND NO
[2017-03-23 07:01] LABS: INR 1.1; PARTIAL THROMBOPLASTIN TIME 30.5 SECONDS (23.5-31.3)
[2017-03-23 07:31] LABS: PROTEIN TOTAL SERUM 7.2 g/dL (6.0-8.3)
[2017-03-23 08:01] LABS: INR 1.1; PARTIAL THROMBOPLASTIN TIME 29.7 SECONDS (23.5-31.3); PROTHROMBIN TIME (PATIENT) 12.3 SECONDS (10.0-11.7)
[2017-03-23 10:50] LABS: PROTEIN, BODY FLUID 4.3 gm/dL
[2017-03-24 10:31] LABS: HEMATOCRIT 24.4 % (38.0-50.0); HEMOGLOBIN 8.5 gm/dL (13.0-16.0); MEAN CELL VOLUME 83.7 FL (83-96); MEAN CORPUSCULAR HEMOGLOBIN 29.1 PG (28-34); MEAN CORPUSCULAR HGB CONC 34.7 g/dL (30-36); MEAN PLATELET VOLUME 8.2 FL (6.5-11.5); RED BLOOD COUNT 2.92 X10e (3.90-5.60); RED CELL DISTRIBUTION WIDTH 17.8 % (11.0-15.5); WHITE BLOOD COUNT 12.8 X10e3 (4.0-10.5)
[2017-03-24 11:33] LABS: BUN/CREATININE RATIO 8.3; CALCIUM SERUM 8.6 mg/dL (8.4-10.2); CREATININE SERUM 5.9 mg/dL (0.6-1.4); GLOM FILT RATE Estimated 10.3 mL/min (>60); POTASSIUM 4.6 mmol/L (3.5-5.1)
== END 2017-03-24 19:00 | disposition home health service (06) | DRG 871 ==
LOC: CED 11:13 → CEDOF 14:40 → CED 15:39 → CEDOF 15:39 → C3A PCU 16:43 → CEDOF 16:43 → C3A PCU 03-17 08:08 → CEDOF 03-19 16:10 → C3A PCU 03-19 16:10 → CED 03-19 16:10 → C3A PCU 03-21 16:51 → CEDOF 03-21 16:51 → C3A PCU 03-24 19:00
PROVIDERS: Emergency Medicine; Internal Medicine; Internal Medicine Infectious Disease; Internal Medicine Nephrology; Nurse Practitioner Adult Health; Radiology Diagnostic Radiology
PROC: B24BYZZ Ultrasonography of Heart with Aorta using Other Contrast (ICD-10-PCS; 2017-03-17)
PROC: 5A1D60Z (ICD-10-PCS; 2017-03-18)
PROC: 0W9930Z Drainage of Right Pleural Cavity with Drainage Device, Percutaneous Approach (ICD-10-PCS; principal; 2017-03-23)
DX: A41.9 Sepsis, unspecified organism (principal); N18.6 End stage renal disease; J90 Pleural effusion, not elsewhere classified; J18.9 Pneumonia, unspecified organism; I12.0 Hypertensive chronic kidney disease with stage 5 chronic kidney disease or end stage renal disease; E66.01 Morbid (severe) obesity due to excess calories; N25.0 Renal osteodystrophy; E87.5 Hyperkalemia; E11.9 Type 2 diabetes mellitus without complications; D63.1 Anemia in chronic kidney disease; F32.9 Major depressive disorder, single episode, unspecified; E21.3 Hyperparathyroidism, unspecified; Z99.2 Dependence on renal dialysis; I25.10 Atherosclerotic heart disease of native coronary artery without angina pectoris; Z79.4 Long term (current) use of insulin; E78.5 Hyperlipidemia, unspecified; G47.33 Obstructive sleep apnea (adult) (pediatric); G40.909 Epilepsy, unspecified, not intractable, without status epilepticus; Z98.49 Cataract extraction status, unspecified eye; M54.9 Dorsalgia, unspecified; Z68.31 Body mass index [BMI] 31.0-31.9, adult
CPT/HCPCS: 71010; 71020; 72128; 72131; 80048; 80076; 80202; 81003; 82308; 82553; 82947; 83036; 83605; 83615; 83735; 84100; 84155; 84157; 84484; 85025; 85027; 85610; 85652; 85730; 86140; 87040; 87070; 87086; 87102; 87116; 87205; 87206; 87651; 88108; 88305; 93005; 93306; 94760; 96365; 96366; 99291; J0610; J0692; J0696; J0885; J1815; J3370; Q4081